=== PATIENT | female | born 1950 | race American Indian/Alaskan Native ===

== ENCOUNTER 2019-07-18 16:59 | Inpatient (IN) | payer OTHER, MEDICARE ==
--- NOTE | 2019-07-18 18:01 | Emergency Department Report ---
HPI - General Chief Complaint: Dyspnea/Respdistress Time Seen by Provider: 07/18/19 17:43 - HPI HPI: Room 19 The patient is a 68-year-old female present with a chief complaint of shortness of breath. Patient states she is had progressive shortness of breath over the past 3 weeks. Patient admits to 4 pillow orthopnea. Patient denies chest pain or fevers. Patient states she began to cough today and has been productive of white sputum. The patient states she is developed bilateral lower extremity edema over the past 3 weeks as well. Patient has a history of CHF and states she is on a "water pill." The patient was administered Lasix 40 mg IV by EMS prior to arrival ED Past Medical Hx - Past Medical History Previous Medical History?: Yes Hx Hypertension: Yes Hx Congestive Heart Failure: Yes Hx COPD: Yes Additional medical history: High cholesterol, former ETOH abuse quit ~2017, atrial fibrillation - Surgical History Additional Surgical History: tubal ligation, left knee - Family History Family history: no significant - Social History Smoking Status: Current Every Day Smoker (1/2 pack/day) Substance Use Type: None - Medications Home Medications: Home Medications Medication Instructions Recorded Confirmed Last Taken Type HYDROcodone/APAP 5-325 [[place] 1 each PO Q6HR PRN #12 tablet 12/17/18 Unknown Rx 5/325] ED Review of Systems ROS: Stated complaint: SHORTNESS OF BREATH Other details as noted in HPI Constitutional: denies: fever Eyes: denies: eye pain ENT: denies: throat pain Respiratory: cough, shortness of breath Cardiovascular: denies: chest pain Endocrine: no symptoms reported Gastrointestinal: denies: abdominal pain Genitourinary: denies: dysuria Skin: other (Peripheral edema) Neurological: denies: headache Physical Exam - Physical Exam Vital Signs: Vital Signs 07/18/19 07/18/19 07/18/19 17:27 17:29 17:30 Temperature 98.3 F Pulse Rate 93 H 89 86 Respiratory 19 23 24 Rate Blood Pressure 169/92 163/95 O2 Sat by Pulse 96 95 Oximetry 07/18/19 07/18/19 07/18/19 17:34 17:35 17:41 Temperature Pulse Rate 78 86 Respiratory 22 22 22 Rate Blood Pressure 163/95 163/95 O2 Sat by Pulse 94 95 96 Oximetry 07/18/19 17:45 Temperature Pulse Rate 87 Respiratory 22 Rate Blood Pressure 161/96 O2 Sat by Pulse 94 Oximetry Physical Exam: GENERAL: The patient is well-developed well-nourished female lying on stretcher exhibiting slightly increased work of breathing. [] HEENT: Normocephalic. Atraumatic. Extraocular motions are intact. Patient has moist mucous membranes. NECK: Supple. Trachea midline CHEST/LUNGS: Faint crackles at the right base. There is no respiratory distress noted. HEART/CARDIOVASCULAR: Regular. There is no tachycardia. There is no gallop rub or murmur. ABDOMEN: Abdomen is soft, nontender. Patient has normal bowel sounds. There is no abdominal distention. SKIN: There is no rash. There is 2-3+ bilateral lower extremity pitting edema. There is no diaphoresis. NEURO: The patient is awake, alert, and oriented. The patient is cooperative. The patient has no focal neurologic deficits. The patient has normal speech MUSCULOSKELETAL: There is no evidence of acute injury. ED Course Vital Signs 07/18/19 07/18/19 07/18/19 17:27 17:29 17:30 Temperature 98.3 F Pulse Rate 93 H 89 86 Respiratory 19 23 24 Rate Blood Pressure 169/92 163/95 O2 Sat by Pulse 96 95 Oximetry 07/18/19 07/18/19 07/18/19 17:34 17:35 17:41 Temperature Pulse Rate 78 86 Respiratory 22 22 22 Rate Blood Pressure 163/95 163/95 O2 Sat by Pulse 94 95 96 Oximetry 07/18/19 17:45 Temperature Pulse Rate 87 Respiratory 22 Rate Blood Pressure 161/96 O2 Sat by Pulse 94 Oximetry ED Medical Decision Making - Lab Data Result diagrams: 07/18/19 17:56 07/18/19 17:56 Laboratory Tests 07/18/19 07/18/19 17:56 17:56 WBC 5.3 RBC 3.75 Hgb 9.4 L Hct 31.0 MCV 83 MCH 25 L MCHC 30 RDW 25.0 H Plt Count 192 Add Manual Diff Complete Total Counted 100 Seg Neuts % (Manual) 87.0 H Band Neutrophils % 0 Lymphocytes % (Manual) 10.0 L Reactive Lymphs % (Man) 0 Monocytes % (Manual) 2.0 Eosinophils % (Manual) 1.0 Basophils % (Manual) 0 Metamyelocytes % 0 Myelocytes % 0 Promyelocytes % 0 Blast Cells % 0 Nucleated RBC % Not Reportable Seg Neutrophils # Man 4.6 Band Neutrophils # 0.0 Lymphocytes # (Manual) 0.5 L Abs React Lymphs (Man) 0.0 Monocytes # (Manual) 0.1 Eosinophils # (Manual) 0.1 Basophils # (Manual) 0.0 Metamyelocytes # 0.0 Myelocytes # 0.0 Promyelocytes # 0.0 Blast Cells # 0.0 WBC Morphology Not Reportable Hypersegmented Neuts Not Reportable Hyposegmented Neuts Not Reportable Hypogranular Neuts Not Reportable Smudge Cells Not Reportable Toxic Granulation Not Reportable Toxic Vacuolation Not Reportable Dohle Bodies Not Reportable Pelger-Huet Anomaly Not Reportable [place] Rods Not Reportable Platelet Estimate Not Reportable Clumped Platelets Not Reportable Plt Clumps, EDTA Not Reportable Large Platelets Not Reportable Giant Platelets Not Reportable Platelet Satelliting Not Reportable Plt Morphology Comment Not Reportable RBC Morphology Not Reportable Dimorphic RBCs Not Reportable Polychromasia Not Reportable Hypochromasia 1+ Poikilocytosis Not Reportable Anisocytosis 1+ Microcytosis 1+ Macrocytosis Not Reportable Spherocytes Not Reportable Pappenheimer Bodies Not Reportable Sickle Cells Not Reportable Target Cells Not Reportable Tear Drop Cells Not Reportable Ovalocytes Not Reportable Helmet Cells Not Reportable Puri-[place] Bodies Not Reportable [place] Rings Not Reportable Eugenia Cells Not Reportable Bite Cells Not Reportable Crenated Cell Not Reportable Elliptocytes Not Reportable Acanthocytes (Spur) Not Reportable Rouleaux Not Reportable Hemoglobin C Crystals Not Reportable Schistocytes Not Reportable Malaria parasites Not Reportable Colby Bodies Not Reportable Hem Pathologist Commnt No Sodium 138 Potassium 4.3 Chloride 96.2 L Carbon Dioxide 30 Anion Gap 16 BUN 16 Creatinine 1.0 Estimated GFR > 60 BUN/Creatinine Ratio 16 Glucose 112 H Calcium 9.7 Total Bilirubin 1.10 AST 17 ALT 12 Alkaline Phosphatase 149 H Total Creatine Kinase 67 CK-MB (CK-2) 2.4 CK-MB (CK-2) Rel Index 3.5 Troponin T < 0.010 NT-Pro-B Natriuret Pep 3321 H Total Protein 7.6 Albumin 3.8 L Albumin/Globulin Ratio 1.0 - EKG Data -: EKG Interpreted by Ct Rate: normal - EKG Data When compared to previous EKG there are: previous EKG unavailable Interpretation: other (Atrial fibrillation) - Radiology Data Radiology results: report reviewed (Chest x-ray), image reviewed (Chest x-ray) interpreted by me: Chest x-ray-right pleural effusion, CHF [facility] [address] [place] [address] XRay Report Signed Patient: PATRICIA SARKAR MR#: [id number] : 1950 Acct:[id number] Age/Sex: 68 / F ADM Date: 07/18/19 Loc: ED Attending Dr: Ordering Physician: ANNAMARIE THACKER MD Date of Service: 07/18/19 Procedure(s): XR chest 1V ap Accession Number(s): [id number] cc: ANNAMARIE THACKER MD Fluoro Time In Minutes: CHEST 1 VIEW INDICATION / CLINICAL INFORMATION: Shortness of breath. COMPARISON: None available. FINDINGS: SUPPORT DEVICES: None. HEART / MEDIASTINUM: Moderately enlarged. LUNGS / PLEURA: Left lung is clear. There is a moderate-sized right pleural effusion and right lower lobe consolidation. There is questionable nodule at the right apex. No pneumothorax. ADDITIONAL FINDINGS: No significant additional findings. IMPRESSION: 1 Right pleural effusion and right basilar lung consolidation. Signer Name: Hamilton Zayas MD Signed: 07/18/2019 6:26 PM Workstation Name: [id number] Transcribed By: Dictated By: Hamilton Zayas MD Electronically Authenticated By: Hamilton Zayas MD Signed Date/Time: 07/18/191825 DD/ 24 TD/TT: - Differential Diagnosis CHF exacerbation, pneumonia, bronchitis, COPD Critical care attestation.: If time is entered above; I have spent that time in minutes in the direct care of this critically ill patient, excluding procedure time. ED Disposition Clinical Impression: CHF exacerbation, Pleural effusion, right Disposition: DC- OP ADMIT IP TO THIS HOSP Is pt being admited?: Yes Does the pt Need Aspirin: Yes Condition: Fair Time of Disposition: 19:37 (Hospitalist paged (Dr Rosenthal))
[2019-07-18 18:19] LABS: Hemoglobin 9.4 gm/dl (10.1-14.3); Mean Corpuscular HGB Conc 30 % (30-34); Mean Corpuscular Volume 83 fl (79-97); Platelet Count 192 K/mm3 (140-440); Red Blood Count 3.75 M/mm3 (3.65-5.03)
--- NOTE | 2019-07-18 18:30 | XRay Report ---
CHEST 1 VIEW INDICATION / CLINICAL INFORMATION: Shortness of breath. COMPARISON: None available. FINDINGS: SUPPORT DEVICES: None. HEART / MEDIASTINUM: Moderately enlarged. LUNGS / PLEURA: Left lung is clear. There is a moderate-sized right pleural effusion and right lower lobe consolidation. There is questionable nodule at the right apex. No pneumothorax. ADDITIONAL FINDINGS: No significant additional findings. IMPRESSION: 1 Right pleural effusion and right basilar lung consolidation. Signer Name: Hamilton Zayas MD Signed: 07/18/2019 6:26 PM Workstation Name: [id number]
[2019-07-18 18:46] LABS: Creatine Kinase MB 2.4 ng/mL (0.0-4.0)
[2019-07-18 18:47] LABS: Alanine Aminotransferase 12 units/L (7-56); Albumin 3.8 g/dL (3.9-5); BUN/Creatinine Ratio 16; Blood Urea Nitrogen 16 mg/dL (7-17); Calcium 9.7 mg/dL (8.4-10.2); Hemolysis Index 0
[2019-07-18 19:01] LABS: Anisocytosis 1+; Basophils % (Manual) 0 % (0.0-1.8); Hypochromasia 1+; Total Cells Counted 100
[2019-07-18] MEDS ORDERED: METOCLOPRAMIDE 10 MG/2 ML INJ IV PRN (22:13)
[2019-07-18] MEDS ORDERED: ACETAMINOPHEN 325 MG TAB PO PRN (22:13)
[2019-07-18] MEDS ORDERED: HYDROmorphone 1 MG/1 ML INJ IV PRN (22:13)
--- NOTE | 2019-07-18 22:13 | History and Physical Report ---
History of Present Illness Date of examination: 07/18/19 Date of admission: 07/18/19 19:50 Chief complaint: Increasing SOB for 3 daysSOB History of present illness: The patient is a 68-year-old female present with a chief complaint of shortness of breath. Patient states she is had progressive shortness of breath over the past 3 weeks. Patient admits to 4 pillow orthopnea. Patient denies chest pain or fevers. Patient states she began to cough today and has been productive of white sputum. The patient states she is developed bilateral lower extremity edema over the past 3 weeks as well. Patient has a history of CHF and states she is on a "water pill." The patient was administered Lasix 40 mg IV by EMS prior to arrival - Past Medical History Previous Medical History?: Yes Hypertension: Yes Congestive Heart Failure: Yes COPD: Yes Additional medical history: High cholesterol, former ETOH abuse quit ~2017, atrial fibrillation - Surgical History Additional Surgical History: tubal ligation, left knee - Family History Family history: no significant - Social History Smoking Status: Current Every Day Smoker (1/2 pack/day) Substance Use Type: None - Medications Home Medications: Home Medications Medication Instructions Recorded Confirmed Last Taken Type HYDROcodone/APAP 5-325 [[place] 1 each PO Q6HR PRN #12 tablet 12/17/18 Unknown Rx 5/325] Review of Systems ROS: Stated complaint: SHORTNESS OF BREATH Other details as noted in HPI Constitutional: denies: fever Eyes: denies: eye pain ENT: denies: throat pain Respiratory: cough, shortness of breath Cardiovascular: denies: chest pain Endocrine: no symptoms reported Gastrointestinal: denies: abdominal pain Genitourinary: denies: dysuria Skin: other (Peripheral edema) Neurological: denies: headache Medications and Allergies Allergies Allergy/AdvReac Type Severity Reaction Status Date / Time No Known Allergies Allergy Verified 07/18/19 23:05 Home Medications Medication Instructions Recorded Confirmed Last Taken Type HYDROcodone/APAP 5-325 [[place] 1 each PO Q6HR PRN #12 tablet 12/17/18 07/19/19 Unknown Rx 5/325] Exam - Physical Exam Narrative exam: patient very SOB at rest - Constitutional Vitals: Temp Pulse Resp BP Pulse Ox 98.3 F 87 24 161/96 94 07/18/19 17:29 07/18/19 21:25 07/18/19 21:41 07/18/19 17:45 07/18/19 17:45 General appearance: Present: severe distress, well-nourished - EENT Eyes: Present: PERRL ENT: hearing intact, clear oral mucosa - Neck Neck: Present: supple, normal ROM - Respiratory Respiratory effort: normal Respiratory: bilateral: CTA, rales - Cardiovascular Heart rate: 98 Rhythm: regular Heart Sounds: Present: S1 & S2. Absent: rub, click - Extremities Extremities: no ischemia, pulses intact, pulses symmetrical, No edema Extremity abnormal: edema (2 plus) Peripheral Pulses: within normal limits - Abdominal General gastrointestinal: Present: soft, non-tender, non-distended, normal bowel sounds Female genitourinary: Present: normal - Rectal Rectal Exam: deferred - Integumentary Integumentary: Present: clear, warm, dry - Musculoskeletal Musculoskeletal: gait normal, strength equal bilaterally - Psychiatric Psychiatric: appropriate mood/affect, intact judgment & insight - Neurologic Neurologic: CNII-XII intact, moves all extremities - Allied Health Allied health notes reviewed: nursing, case management HEART Score - HEART Score History: Highly suspicious EKG: Non-specific Age: > 65 Risk factors: > 3 risk factors or hx of atherosclerotic disease Troponin: Troponin T < 0.010 ng/mL (0.00-0.029) 07/18/19 17:56 - Critical Actions Critical Actions: 4-6 pts:12-16.6% risk of adverse cardiac event. Should be admitted Results - Labs CBC & Chem 7: 07/19/19 03:31 07/19/19 03:31 Labs: Laboratory Last Values WBC 5.3 K/mm3 (4.5-11.0) 07/18/19 17:56 RBC 3.75 M/mm3 (3.65-5.03) 07/18/19 17:56 Hgb 9.4 gm/dl (10.1-14.3) L 07/18/19 17:56 Hct 31.0 % (30.3-42.9) 07/18/19 17:56 MCV 83 fl (79-97) 07/18/19 17:56 MCH 25 pg (28-32) L 07/18/19 17:56 MCHC 30 % (30-34) 07/18/19 17:56 RDW 25.0 % (13.2-15.2) H 07/18/19 17:56 Plt Count 192 K/mm3 (140-440) 07/18/19 17:56 Add Manual Diff Complete 07/18/19 17:56 Total Counted 100 07/18/19 17:56 Seg Neuts % (Manual) 87.0 % (40.0-70.0) H 07/18/19 17:56 Band Neutrophils % 0 % 07/18/19 17:56 Lymphocytes % (Manual) 10.0 % (13.4-35.0) L 07/18/19 17:56 Reactive Lymphs % (Man) 0 % 07/18/19 17:56 Monocytes % (Manual) 2.0 % (0.0-7.3) 07/18/19 17:56 Eosinophils % (Manual) 1.0 % (0.0-4.3) 07/18/19 17:56 Basophils % (Manual) 0 % (0.0-1.8) 07/18/19 17:56 Metamyelocytes % 0 % 07/18/19 17:56 Myelocytes % 0 % 07/18/19 17:56 Promyelocytes % 0 % 07/18/19 17:56 Blast Cells % 0 % 07/18/19 17:56 Nucleated RBC % Not Reportable 07/18/19 17:56 Seg Neutrophils # Man 4.6 K/mm3 (1.8-7.7) 07/18/19 17:56 Band Neutrophils # 0.0 K/mm3 07/18/19 17:56 Lymphocytes # (Manual) 0.5 K/mm3 (1.2-5.4) L 07/18/19 17:56 Abs React Lymphs (Man) 0.0 K/mm3 07/18/19 17:56 Monocytes # (Manual) 0.1 K/mm3 (0.0-0.8) 07/18/19 17:56 Eosinophils # (Manual) 0.1 K/mm3 (0.0-0.4) 07/18/19 17:56 Basophils # (Manual) 0.0 K/mm3 (0.0-0.1) 07/18/19 17:56 Metamyelocytes # 0.0 K/mm3 07/18/19 17:56 Myelocytes # 0.0 K/mm3 07/18/19 17:56 Promyelocytes # 0.0 K/mm3 07/18/19 17:56 Blast Cells # 0.0 K/mm3 07/18/19 17:56 WBC Morphology Not Reportable 07/18/19 17:56 Hypersegmented Neuts Not Reportable 07/18/19 17:56 Hyposegmented Neuts Not Reportable 07/18/19 17:56 Hypogranular Neuts Not Reportable 07/18/19 17:56 Smudge Cells Not Reportable 07/18/19 17:56 Toxic Granulation Not Reportable 07/18/19 17:56 Toxic Vacuolation Not Reportable 07/18/19 17:56 Dohle Bodies Not Reportable 07/18/19 17:56 Pelger-Huet Anomaly Not Reportable 07/18/19 17:56 Camilo Rods Not Reportable 07/18/19 17:56 Platelet Estimate Not Reportable 07/18/19 17:56 Clumped Platelets Not Reportable 07/18/19 17:56 Plt Clumps, EDTA Not Reportable 07/18/19 17:56 Large Platelets Not Reportable 07/18/19 17:56 Giant Platelets Not Reportable 07/18/19 17:56 Platelet Satelliting Not Reportable 07/18/19 17:56 Plt Morphology Comment Not Reportable 07/18/19 17:56 RBC Morphology Not Reportable 07/18/19 17:56 Dimorphic RBCs Not Reportable 07/18/19 17:56 Polychromasia Not Reportable 07/18/19 17:56 Hypochromasia 1+ 07/18/19 17:56 Poikilocytosis Not Reportable 07/18/19 17:56 Anisocytosis 1+ 07/18/19 17:56 Microcytosis 1+ 07/18/19 17:56 Macrocytosis Not Reportable 07/18/19 17:56 Spherocytes Not Reportable 07/18/19 17:56 Pappenheimer Bodies Not Reportable 07/18/19 17:56 Sickle Cells Not Reportable 07/18/19 17:56 Target Cells Not Reportable 07/18/19 17:56 Tear Drop Cells Not Reportable 07/18/19 17:56 Ovalocytes Not Reportable 07/18/19 17:56 Helmet Cells Not Reportable 07/18/19 17:56 Puri-[place] Bodies Not Reportable 07/18/19 17:56 [place] Rings Not Reportable 07/18/19 17:56 Eugenia Cells Not Reportable 07/18/19 17:56 Bite Cells Not Reportable 07/18/19 17:56 Crenated Cell Not Reportable 07/18/19 17:56 Elliptocytes Not Reportable 07/18/19 17:56 Acanthocytes (Spur) Not Reportable 07/18/19 17:56 Rouleaux Not Reportable 07/18/19 17:56 Hemoglobin C Crystals Not Reportable 07/18/19 17:56 Schistocytes Not Reportable 07/18/19 17:56 Malaria parasites Not Reportable 07/18/19 17:56 Colby Bodies Not Reportable 07/18/19 17:56 Hem Pathologist Commnt No 07/18/19 17:56 Sodium 138 mmol/L (137-145) 07/18/19 17:56 Potassium 4.3 mmol/L (3.6-5.0) 07/18/19 17:56 Chloride 96.2 mmol/L (98-107) L 07/18/19 17:56 Carbon Dioxide 30 mmol/L (22-30) 07/18/19 17:56 Anion Gap 16 mmol/L 07/18/19 17:56 BUN 16 mg/dL (7-17) 07/18/19 17:56 Creatinine 1.0 mg/dL (0.7-1.2) 07/18/19 17:56 Estimated GFR > 60 ml/min 07/18/19 17:56 BUN/Creatinine Ratio 16 % 07/18/19 17:56 Glucose 112 mg/dL (65-100) H 07/18/19 17:56 Calcium 9.7 mg/dL (8.4-10.2) 07/18/19 17:56 Total Bilirubin 1.10 mg/dL (0.1-1.2) 07/18/19 17:56 AST 17 units/L (5-40) 07/18/19 17:56 ALT 12 units/L (7-56) 07/18/19 17:56 Alkaline Phosphatase 149 units/L (35-129) H 07/18/19 17:56 Total Creatine Kinase 67 units/L (30-135) 07/18/19 17:56 CK-MB (CK-2) 2.4 ng/mL (0.0-4.0) 07/18/19 17:56 CK-MB (CK-2) Rel Index 3.5 (0-4) 07/18/19 17:56 Troponin T < 0.010 ng/mL (0.00-0.029) 07/18/19 17:56 NT-Pro-B Natriuret Pep 3321 pg/mL (0-900) H 07/18/19 17:56 Total Protein 7.6 g/dL (6.3-8.2) 07/18/19 17:56 Albumin 3.8 g/dL (3.9-5) L 07/18/19 17:56 Albumin/Globulin Ratio 1.0 % 07/18/19 17:56 Short CBC 07/18/19 Range/Units 17:56 WBC 5.3 (4.5-11.0) K/mm3 Hgb 9.4 L (10.1-14.3) gm/dl Hct 31.0 (30.3-42.9) % Plt Count 192 (140-440) K/mm3 BMP 07/18/19 17:56 Sodium 138 Potassium 4.3 Chloride 96.2 L Carbon Dioxide 30 BUN 16 Creatinine 1.0 Glucose 112 H Calcium 9.7 Cardiac Enzymes 07/18/19 Range/Units 17:56 Total Creatine Kinase 67 (30-135) units/L CK-MB (CK-2) 2.4 (0.0-4.0) ng/mL Troponin T < 0.010 (0.00-0.029) ng/mL Liver Function 07/18/19 Range/Units 17:56 Total Bilirubin 1.10 (0.1-1.2) mg/dL AST 17 (5-40) units/L ALT 12 (7-56) units/L Alkaline Phosphatase 149 H (35-129) units/L Albumin 3.8 L (3.9-5) g/dL Short CBC 07/18/19 07/19/19 Range/Units 17:56 03:31 WBC 5.3 2.9 L (4.5-11.0) K/mm3 Hgb 9.4 L 8.8 L (10.1-14.3) gm/dl Hct 31.0 28.8 L (30.3-42.9) % Plt Count 192 171 (140-440) K/mm3 BMP 07/18/19 07/19/19 17:56 03:31 Sodium 138 139 Potassium 4.3 5.3 H D Chloride 96.2 L 96.3 L Carbon Dioxide 30 30 BUN 16 17 Creatinine 1.0 1.1 Glucose 112 H 128 H Calcium 9.7 9.7 Cardiac Enzymes 07/18/19 Range/Units 17:56 Total Creatine Kinase 67 (30-135) units/L CK-MB (CK-2) 2.4 (0.0-4.0) ng/mL Troponin T < 0.010 (0.00-0.029) ng/mL Liver Function 07/18/19 07/19/19 Range/Units 17:56 03:31 Total Bilirubin 1.10 1.00 (0.1-1.2) mg/dL AST 17 17 (5-40) units/L ALT 12 11 (7-56) units/L Alkaline Phosphatase 149 H 148 H (35-129) units/L Albumin 3.8 L 3.9 (3.9-5) g/dL - Imaging and Cardiology EKG: report reviewed Chest x-ray: report reviewed (Rt pleural effusion with consolidation) [place]/IV: Voiding Method Indwelling Catheter IV Catheter Type [Left INT / [place] Antecubital] Assessment and Plan Advance Directives: Yes (Full code) VTE prophylaxis?: Chemical Plan of care discussed with patient/family: Yes - Patient Problems (1) CHF exacerbation Current Visit: Yes Status: Acute Qualifiers: Heart failure type: combined systolic and diastolic Qualified Code(s): I50.43 - Acute on chronic combined systolic (congestive) and diastolic (congestive) heart failure Plan to address problem: Daily weigts Strict I/o's ECHO for EF IV Lasix q12h Cardiology consult (2) Pleural effusion, right Current Visit: Yes Status: Acute Plan to address problem: Sec to CHF No Pneumonia No IV abx (3) HTN (hypertension) Current Visit: Yes Status: Chronic Qualifiers: Hypertension type: essential hypertension Qualified Code(s): I10 - Essential (primary) hypertension Plan to address problem: COnt anihypertensives and adjust BP meds (4) COPD (chronic obstructive pulmonary disease) Current Visit: Yes Status: Chronic Qualifiers: Emphysema type: unspecified Plan to address problem: Duonebs prn (5) HLD (hyperlipidemia) Current Visit: Yes Status: Chronic Qualifiers: Hyperlipidemia type: mixed hyperlipidemia Qualified Code(s): E78.2 - Mixed hyperlipidemia Plan to address problem: Cont statins (6) DVT prophylaxis Current Visit: Yes Status: Acute Plan to address problem: On Heparin and GI prophylaxis
[2019-07-18] MEDS ORDERED: carvediloL 6.25 MG TAB PO SCH (23:00)
[2019-07-18] MEDS ORDERED: POTASSIUM CHLORIDE ER 20 MEQ TAB PO SCH (23:00)
[2019-07-18] MEDS: FAMOTIDINE 20 MG TAB PO SCH (23:14)
[2019-07-18] MEDS: VALSARTAN 160MG TAB PO SCH (23:14)
[2019-07-19 04:26] LABS: Hematocrit 28.8 % (30.3-42.9); Hemoglobin 8.8 gm/dl (10.1-14.3); Mean Corpuscular HGB Conc 31 % (30-34); Mean Corpuscular Volume 83 fl (79-97); Platelet Count 171 K/mm3 (140-440); Red Blood Count 3.49 M/mm3 (3.65-5.03)
[2019-07-19 04:29] LABS: Red Cell Distribution Width 24.5 % (13.2-15.2)
[2019-07-19 04:45] LABS: Albumin 3.9 g/dL (3.9-5); Calcium 9.7 mg/dL (8.4-10.2)
[2019-07-19] MEDS: FUROSEMIDE 40 MG/4 ML INJ IV SCH ×2 (05:06→18:43)
[2019-07-19 06:40] LABS: Basophils % (Manual) 0 % (0.0-1.8); Eosinophils % (Manual) 0 % (0.0-4.3); Total Cells Counted 100
[2019-07-19 06:41] LABS: Anisocytosis 2+; Hypochromasia 1+; Macrocytosis Few; Ovalocytes Few; Platelet Estimate Consistent w Auto; Schistocytes Rare
[2019-07-19] MEDS ORDERED: HEPARIN 5,000 UNIT/1 ML VIAL SUB-Q SCH (10:00)
--- NOTE | 2019-07-19 11:02 | Consultation ---
History of Present Illness Consult date: 07/19/19 Requesting physician: WARREN STRICKLAND Consult reason: congestive heart failure History of present illness: The patient is a 68-year-old female [place] pt with a past medical history of atrial fibrillation, anticoagulated on Xarelto, HF, COPD, chronic respiratory failure requiring home O2 (3L per pt report), ongoing tobacco use, HTN. She presented with c/o left breast swelling and progressively worsening SOB and BLE edema for the past several weeks. Patient admits to 4 pillow orthopnea. Patient denies any chest pain, cough, fever or chills, palpitations, n/v, diaphoresis, dizziness or syncope. CXR per radiology read shows right pleural effusion with questionable nodule at right apex. On evaluation, pt is c/o SOB and requiring hi-tapan NC. Past History Past Medical History: other (as per HPI) Social history: smoking Medications and Allergies Allergies Allergy/AdvReac Type Severity Reaction Status Date / Time No Known Allergies Allergy Verified 07/18/19 23:05 Home Medications Medication Instructions Recorded Confirmed Last Taken Type HYDROcodone/APAP 5-325 [Energy 1 each PO Q6HR PRN #12 tablet 12/17/18 07/19/19 Unknown Rx 5/325] Active Meds: Active Medications Acetaminophen (Tylenol) 650 mg PO Q4H PRN PRN Reason: Pain MILD(1-3)/Fever >100.5/KENDALL Carvedilol (Coreg) 6.25 mg PO BID [facility] Last Admin: 07/18/19 23:14 Dose: 6.25 mg Documented by: Famotidine (Pepcid) 20 mg PO BID [facility] Last Admin: 07/18/19 23:14 Dose: 20 mg Documented by: Furosemide (Lasix) 40 mg IV 0600,1800 [facility] Last Admin: 07/19/19 05:06 Dose: 40 mg Documented by: Heparin Sodium (Porcine) (Heparin) 5,000 unit SUB-Q Q12HR [facility] Hydromorphone HCl (Dilaudid) 0.5 mg IV Q3H PRN PRN Reason: Pain , Severe (7-10) Metoclopramide HCl (Reglan) 10 mg IV Q6H PRN PRN Reason: Nausea And Vomiting Ondansetron HCl (Zofran) 4 mg IV Q8H PRN PRN Reason: Nausea And Vomiting Oxycodone/Acetaminophen (Percocet 5/325) 1 tab PO Q6H PRN PRN Reason: Pain, Moderate (4-6) Sodium Chloride (Sodium Chloride Flush Syringe 10 Ml) 10 ml IV BID [facility] Last Admin: 07/18/19 23:15 Dose: 10 ml Documented by: Sodium Chloride (Sodium Chloride Flush Syringe 10 Ml) 10 ml IV PRN PRN PRN Reason: LINE FLUSH Valsartan (Diovan) 160 mg PO BID [facility] Last Admin: 07/18/19 23:14 Dose: 160 mg Documented by: Review of Systems Constitutional: no fever, no chills, no sweats Ears, nose, mouth and throat: no ear pain, no nose pain, no sinus pressure, no sinus pain Cardiovascular: orthopnea, edema, shortness of breath, dyspnea on exertion, high blood pressure, leg edema, no chest pain, no palpitations, no rapid/irregular heart beat, no syncope, no lightheadedness Respiratory: shortness of breath, dyspnea on exertion, no cough, no congestion, no wheezing, no pain on inspiration Gastrointestinal: no abdominal pain, no nausea, no vomiting, no diarrhea, no constipation, no change in bowel habits Genitourinary Female: no pelvic pain, no flank pain, no dysuria, no urinary frequency, no urgency Musculoskeletal: no neck stiffness, no neck pain, no shooting arm pain, no arm numbness/tingling, no low back pain, no shooting leg pain Integumentary: no rash, no pruritis, no redness, no sores, no wounds Neurological: no head injury, no paralysis, no weakness, no parathesias, no numbness, no tingling, no seizures, no syncope Psychiatric: no anxiety Endocrine: no cold intolerance, no heat intolerance Hematologic/Lymphatic: no easy bruising, no easy bleeding Allergic/Immunologic: no urticaria Physical Examination Vital Signs Pulse Resp 93 H 19 07/18/19 17:27 07/18/19 17:27 General appearance: other (SOB) HEENT: Positive: PERRL Neck: Positive: neck supple, trachea midline Cardiac: Positive: irregularly irregular, S1/S2 Lungs: Positive: Decreased Breath Sounds, Oxygen Neuro: Positive: Grossly Intact Abdomen: Negative: Tender Skin: Negative: Rash Musculoskeletal: No Pain Extremities: Present: +1 Edema (BLE) Results 07/19/19 03:31 07/19/19 03:31 Cardiac Enzymes 07/18/19 07/19/19 Range/Units 17:56 03:31 AST 17 17 (5-40) units/L CK-MB (CK-2) 2.4 (0.0-4.0) ng/mL CBC 07/18/19 07/19/19 Range/Units 17:56 03:31 WBC 5.3 2.9 L (4.5-11.0) K/mm3 RBC 3.75 3.49 L (3.65-5.03) M/mm3 Hgb 9.4 L 8.8 L (10.1-14.3) gm/dl Hct 31.0 28.8 L (30.3-42.9) % Plt Count 192 171 (140-440) K/mm3 Comprehensive Metabolic Panel 07/18/19 07/19/19 Range/Units 17:56 03:31 Sodium 138 139 (137-145) mmol/L Potassium 4.3 5.3 H D (3.6-5.0) mmol/L Chloride 96.2 L 96.3 L (98-107) mmol/L Carbon Dioxide 30 30 (22-30) mmol/L BUN 16 17 (7-17) mg/dL Creatinine 1.0 1.1 (0.7-1.2) mg/dL Glucose 112 H 128 H (65-100) mg/dL Calcium 9.7 9.7 (8.4-10.2) mg/dL AST 17 17 (5-40) units/L ALT 12 11 (7-56) units/L Alkaline Phosphatase 149 H 148 H (35-129) units/L Total Protein 7.6 7.6 (6.3-8.2) g/dL Albumin 3.8 L 3.9 (3.9-5) g/dL - Imaging and Cardiology Echo: pending EKG: report reviewed, image reviewed EKG interpretations - Telemetry EKG Rhythm: Atrial Fibrillation - EKG Supraventricular dysrhythmia: atrial fibrillation Assessment and Plan Agree with IV lasix BID. Convert coreg to lopressor (beta selective). Cont ARB. Obtain chest CTA. Recommend pulmonary consultation in setting of A/C respiratory failure, COPD, pleural effusion which may ultimately require thoracentesis, questionable pulmonary nodule, ongoing tobacco use. Hold home Xarelto pending pulmonary eval and initiate full dosage lovenox BID in regards to AFib. Pt noted to have decrease in H/H today. F/u CBC in AM. Obtain echo. Attempt to obtain medical records from [place]. Further recs to follow per hospital course. The patient has been seen in conjunction with Dr. Elio Sotelo who agrees with the assessment and plan of care. - Patient Problems (1) Acute heart failure Current Visit: Yes Status: Acute (2) Pleural effusion, right Current Visit: Yes Status: Acute (3) COPD (chronic obstructive pulmonary disease) Current Visit: Yes Status: Chronic Qualifiers: Emphysema type: unspecified (4) Acute on chronic respiratory failure Current Visit: Yes Status: Acute (5) Accelerated hypertension Current Visit: Yes Status: Acute (6) Atrial fibrillation Current Visit: Yes Status: Chronic (7) Anemia Current Visit: Yes Status: Acute (8) Tobacco use Current Visit: Yes Status: Chronic
[2019-07-19] MEDS: FAMOTIDINE 20 MG TAB PO SCH ×2 (15:07→21:59)
[2019-07-19] MEDS: VALSARTAN 160MG TAB PO SCH ×2 (15:07→21:57)
--- NOTE | 2019-07-19 17:54 | Progress Note ---
Assessment and Plan Day#2 SOB slihtly better - Patient Problems (1) CHF exacerbation Current Visit: Yes Status: Acute Qualifiers: Heart failure type: combined systolic and diastolic Qualified Code(s): I50.43 - Acute on chronic combined systolic (congestive) and diastolic (congestive) heart failure Plan to address problem: Daily weigts Strict I/o's ECHO for EF IV Lasix q12h Cardiology consult (2) Pleural effusion, right Current Visit: Yes Status: Acute Plan to address problem: Sec to CHF No Pneumonia No IV abx Pulmonary consult (3) HTN (hypertension) Current Visit: Yes Status: Chronic Qualifiers: Hypertension type: essential hypertension Qualified Code(s): I10 - Essential (primary) hypertension Plan to address problem: COnt anihypertensives and adjust BP meds (4) COPD (chronic obstructive pulmonary disease) Current Visit: Yes Status: Chronic Qualifiers: Emphysema type: unspecified Plan to address problem: Duonebs prn (5) HLD (hyperlipidemia) Current Visit: Yes Status: Chronic Qualifiers: Hyperlipidemia type: mixed hyperlipidemia Qualified Code(s): E78.2 - Mixed hyperlipidemia Plan to address problem: Cont statins (6) DVT prophylaxis Current Visit: Yes Status: Acute Plan to address problem: On Heparin and GI prophylaxis Subjective Date of service: 07/19/19 Principal diagnosis: Chf exacerbation Interval history: The patient is a 68-year-old female present with a chief complaint of shortness of breath. Patient states she is had progressive shortness of breath over the past 3 weeks. Patient admits to 4 pillow orthopnea. Patient denies chest pain or fevers. Patient states she began to cough today and has been productive of w florina sputum. The patient states she is developed bilateral lower extremity edema over the past 3 weeks as well. Patient has a history of CHF and states she is on a "water pill." The patient was administered Lasix 40 mg IV by EMS prior to arrival. Day#2 Some improvement Objective - Exam Narrative Exam: patient very SOB at rest - Constitutional Vitals: Vital Signs - 12hr 07/19/19 07/19/19 07/19/19 07:34 08:00 09:00 Temperature 97.8 F Respiratory 18 24 Rate Blood Pressure 151/85 O2 Sat by Pulse 100 Oximetry General appearance: Present: no acute distress, well-nourished - EENT Eyes: PERRL, EOM intact ENT: hearing intact, clear oral mucosa Ears: bilateral: normal - Neck Neck: supple, normal ROM - Respiratory Respiratory effort: normal Respiratory: bilateral: CTA, rales, negative: other (TACHYPNEIC) - Breasts Breasts: normal - Cardiovascular Rhythm: regular Heart Sounds: Present: S1 & S2. Absent: gallop, rub Extremities: pulses intact, No edema, normal color, Full ROM - Gastrointestinal General gastrointestinal: Present: soft, non-tender, non-distended, normal bowel sounds - Genitourinary Female genitourinary: normal - Integumentary Integumentary: clear, warm, dry - Musculoskeletal Musculoskeletal: 1, strength equal bilaterally - Neurologic Neurologic: moves all extremities - Psychiatric Psychiatric: memory intact, appropriate mood/affect, intact judgment & insight - Allied health notes Allied health notes reviewed: nursing, case management - Labs CBC & Chem 7: 07/20/19 03:32 07/20/19 03:32 Labs: Abnormal lab results 07/18/19 07/18/19 07/19/19 Range/Units 17:56 17:56 03:31 WBC 2.9 L (4.5-11.0) K/mm3 RBC 3.49 L (3.65-5.03) M/mm3 Hgb 9.4 L 8.8 L (10.1-14.3) gm/dl Hct 28.8 L (30.3-42.9) % MCH 25 L 25 L (28-32) pg RDW 25.0 H 24.5 H (13.2-15.2) % Seg Neuts % (Manual) 87.0 H 83.0 H (40.0-70.0) % Lymphocytes % (Manual) 10.0 L (13.4-35.0) % Lymphocytes # (Manual) 0.5 L 0.5 L (1.2-5.4) K/mm3 Potassium (3.6-5.0) mmol/L Chloride 96.2 L (98-107) mmol/L Glucose 112 H (65-100) mg/dL Alkaline Phosphatase 149 H (35-129) units/L NT-Pro-B Natriuret Pep 3321 H (0-900) pg/mL Albumin 3.8 L (3.9-5) g/dL 07/19/19 Range/Units 03:31 WBC (4.5-11.0) K/mm3 RBC (3.65-5.03) M/mm3 Hgb (10.1-14.3) gm/dl Hct (30.3-42.9) % MCH (28-32) pg RDW (13.2-15.2) % Seg Neuts % (Manual) (40.0-70.0) % Lymphocytes % (Manual) (13.4-35.0) % Lymphocytes # (Manual) (1.2-5.4) K/mm3 Potassium 5.3 H D (3.6-5.0) mmol/L Chloride 96.3 L (98-107) mmol/L Glucose 128 H (65-100) mg/dL Alkaline Phosphatase 148 H (35-129) units/L NT-Pro-B Natriuret Pep (0-900) pg/mL Albumin (3.9-5) g/dL HEART Score - HEART Score EKG: Non-specific Age: > 65 Risk factors: > 3 risk factors or hx of atherosclerotic disease Troponin: Troponin T < 0.010 ng/mL (0.00-0.029) 07/18/19 17:56 - Critical Actions Critical Actions: 4-6 pts:12-16.6% risk of adverse cardiac event. Should be admitted
--- NOTE | 2019-07-19 18:18 | Cat Scan Report ---
CT CHEST WITH CONTRAST INDICATION / CLINICAL INFORMATION: MAIN: SOB; right sided effusion; pulmonary nodule. Omnipaque 300, 100ml give for exam.. TECHNIQUE: Axial CT images were obtained through the chest after 100 cc Omnipaque 300 milligrams percent IV cont rast. All CT scans at this location are performed using CT dose reduction for ALARA by means of autom ated exposure control. COMPARISON: None available. FINDINGS: HEART: Cardiac enlargement is present. Mild coronary calcifications present THORACIC AORTA: Atherosclerotic calcified plaque thoracic aorta MEDIASTINUM and VALE: There is a large pretracheal retrocaval lymph node measuring 1.5 cm in short ax is (Station 4R) enlargement LUNGS: There is a 2.2 cm round mass adjacent to the medial pleura right upper lobe worrisome for a karlene ng carcinoma. Airspace changes right lower lobe is noted. PLEURA: Moderate size right pleural effusion. No pneumothorax. ADDITIONAL FINDINGS: None. UPPER ABDOMEN: No significant abnormality. SKELETAL SYSTEM: No significant abnormality. IMPRESSION: 1. Right upper lobe mass abutting the medial aspect of the pleura, configuration is more in keeping w ith a pulmonary lesion rather than right paratracheal adenopathy does worrisome for lung carcinoma 2. Mediastinal lymphadenopathy 3. Airspace changes right lower lobe with moderate size right pleural effusion 4. Cardiac enlargement Signer Name: Bjorn Garcia MD Signed: 07/19/2019 6:14 PM Workstation Name: [id number]
[2019-07-19] MEDS: ENOXAPARIN 100 MG/1 ML INJ SUB-Q SCH (21:57)
[2019-07-19] MEDS: METOPROLOL TARTRATE 50 MG TAB PO SCH (21:59)
[2019-07-19] MEDS: ONDANSETRON 4 MG/2 ML INJ IV PRN (22:06)
[2019-07-20 04:18] LABS: Hematocrit 29.5 % (30.3-42.9); Hemoglobin 8.9 gm/dl (10.1-14.3); Mean Corpuscular HGB Conc 30 % (30-34); Mean Corpuscular Volume 83 fl (79-97); Platelet Count 168 K/mm3 (140-440); Red Blood Count 3.54 M/mm3 (3.65-5.03)
[2019-07-20 04:21] LABS: Red Cell Distribution Width 23.6 % (13.2-15.2)
[2019-07-20 04:52] LABS: Calcium 8.9 mg/dL (8.4-10.2)
[2019-07-20] MEDS: FUROSEMIDE 40 MG/4 ML INJ IV SCH ×2 (06:16→20:31)
--- NOTE | 2019-07-20 08:11 | Progress Note ---
Assessment and Plan Day#2 SOB slightly better Day#[address] chest shows RUL mass Pulmonary consult - Patient Problems (1) CHF exacerbation Current Visit: Yes Status: Acute Qualifiers: Heart failure type: combined systolic and diastolic Qualified Code(s): I50.43 - Acute on chronic combined systolic (congestive) and diastolic (congestive) heart failure Plan to address problem: Daily weigts Strict I/o's ECHO for EF IV Lasix q12h Cardiology consult (2) Pleural effusion, right Current Visit: Yes Status: Acute Plan to address problem: Sec to CHF Some airspace disease Empiric IV Levaquin RUL mass Pulmonary consult (3) HTN (hypertension) Current Visit: Yes Status: Chronic Qualifiers: Hypertension type: essential hypertension Qualified Code(s): I10 - Essential (primary) hypertension Plan to address problem: COnt anihypertensives and adjust BP meds (4) COPD (chronic obstructive pulmonary disease) Current Visit: Yes Status: Chronic Qualifiers: Emphysema type: unspecified Plan to address problem: Duonebs prn (5) HLD (hyperlipidemia) Current Visit: Yes Status: Chronic Qualifiers: Hyperlipidemia type: mixed hyperlipidemia Qualified Code(s): E78.2 - Mixed hyperlipidemia Plan to address problem: Cont statins (6) DVT prophylaxis Current Visit: Yes Status: Acute Plan to address problem: On Heparin and GI prophylaxis (7) Discharge planning issues Current Visit: Yes Status: Acute Plan to address problem: Patient has a RUL mass PNA ans CHF exacerbation which needs workup Subjective Date of service: 07/20/19 Principal diagnosis: Chf exacerbation,RUL mass,PNA Interval history: The patient is a 68-year-old female present with a chief complaint of shortness of breath. Patient states she is had progressive shortness of breath over the past 3 weeks. Patient admits to 4 pillow orthopnea. Patient denies chest pain or fevers. Patient states she began to cough today and has been productive of white sputum. The patient states she is developed bilateral lower extremity edema over the past 3 weeks as well. Patient has a history of CHF and states she is on a "water pill." The patient was administered Lasix 40 mg IV by EMS prior to arrival. Day#2 Some improvement Day#3 Still SOB Objective - Exam Narrative Exam: patient very SOB at rest - Constitutional Vitals: Vital Signs - 12hr 07/19/19 07/19/1907/18/20 21:00 21:57 21:59 Temperature Pulse Rate 84 84 84 Pulse Rate [ 84 Left Radial] Pulse Rate [ 84 Right Radial] Respiratory 22 Rate Blood Pressure 137/82 137/82 O2 Sat by Pulse 100 Oximetry 07/19/19 07/20/19 07/20/19 22:35 02:00 03:55 Temperature 98.0 F 98.2 F Pulse Rate 94 H 75 Pulse Rate [ Left Radial] Pulse Rate [ Right Radial] Respiratory 19 19 Rate Blood Pressure 116/76 102/55 O2 Sat by Pulse 97 99 99 Oximetry 07/20/19 07/20/19 05:00 07:52 Temperature 98.4 F Pulse Rate 75 Pulse Rate [ Left Radial] Pulse Rate [ Right Radial] Respiratory 18 Rate Blood Pressure 98/68 O2 Sat by Pulse Oximetry General appearance: Present: mild distress, well-nourished - EENT Eyes: PERRL, EOM intact ENT: hearing intact, clear oral mucosa Ears: bilateral: normal - Neck Neck: supple, normal ROM - Respiratory Respiratory effort: normal Respiratory: bilateral: CTA, rales, rhonchi - Breasts Breasts: normal - Cardiovascular Heart rate: 78 Rhythm: regular Heart Sounds: Present: S1 & S2. Absent: gallop, rub Extremities: no ischemia, pulses intact, No edema, normal color, Full ROM - Gastrointestinal General gastrointestinal: Present: soft, non-tender, non-distended, normal bowel sounds - Genitourinary Female genitourinary: normal - Integumentary Integumentary: clear, warm, dry - Musculoskeletal Musculoskeletal: 1, strength equal bilaterally - Neurologic Neurologic: moves all extremities - Psychiatric Psychiatric: memory intact, appropriate mood/affect, intact judgment & insight - Allied health notes Allied health notes reviewed: nursing, case management - Labs CBC & Chem 7: 07/20/19 03:32 07/20/19 03:32 Labs: Abnormal lab results 07/20/19 07/20/19 Range/Units 03:32 03:32 RBC 3.54 L (3.65-5.03) M/mm3 Hgb 8.9 L (10.1-14.3) gm/dl Hct 29.5 L (30.3-42.9) % MCH 25 L (28-32) pg RDW 23.6 H (13.2-15.2) % Chloride 96.0 L (98-107) mmol/L Carbon Dioxide 31 H (22-30) mmol/L BUN 24 H (7-17) mg/dL Creatinine 1.5 H (0.7-1.2) mg/dL Glucose 110 H (65-100) mg/dL CT chest IMPRESSION: 1. Right upper lobe mass abutting the medial aspect of the pleura, configuration is more in keeping with a pulmonary lesion rather than right paratracheal adenopathy does worrisome for lung carcinoma 2. Mediastinal lymphadenopathy 3. Airspace changes right lower lobe with moderate size right pl eural effusion 4. Cardiac enlargement - Imaging and cardiology EKG: report reviewed Chest x-ray: report reviewed CT scan - chest: report reviewed HEART Score - HEART Score EKG: Non-specific Age: > 65 Risk factors: > 3 risk factors or hx of atherosclerotic disease Troponin: Troponin T < 0.010 ng/mL (0.00-0.029) 07/18/19 17:56 - Critical Actions Critical Actions: 4-6 pts:12-16.6% risk of adverse cardiac event. Should be admitted
--- NOTE | 2019-07-20 10:24 | Progress Note ---
Assessment and Plan tte reviewed - EF 50-55%, mild LVH, abnormal diastolic function, LA severely dilated, mild AR, RV severely dilated, severe pulm HTN with RVSP 72mmHg. Chest CT reviewed - RUL mass worrisome for lung carcinoma per radiology, RLL mod sized pleural effusion. Pt denies any known prior diagnosis of lung mass or pulmonary HTN. Pulmonary consultation pending. Cont present cardiac management, including IV lasix BID, lopressor, ARB. Cont full dosage lovenox BID and hold home Xarelto in regards to AFib pending pulmonary eval. Further recs to follow per hospital course. The patient has been seen in conjunction with Dr. Elio Sotelo who agrees with the assessment and plan of care. - Patient Problems (1) Acute heart failure with preserved ejection fraction Current Visit: Yes Status: Acute (2) Lung mass Current Visit: Yes Status: Chronic (3) Severe pulmonary arterial systolic hypertension Current Visit: Yes Status: Chronic (4) Pleural effusion, right Current Visit: Yes Status: Acute (5) COPD (chronic obstructive pulmonary disease) Current Visit: Yes Status: Chronic Qualifiers: Emphysema type: unspecified (6) Acute on chronic respiratory failure Current Visit: Yes Status: Acute (7) Accelerated hypertension Current Visit: Yes Status: Acute (8) Atrial fibrillation Current Visit: Yes Status: Chronic (9) Anemia Current Visit: Yes Status: Acute (10) Tobacco use Current Visit: Yes Status: Chronic Subjective Date of service: 07/20/19 Principal diagnosis: Chf exacerbation,RUL mass,PNA Interval history: Pt resting in bed, states SOB is minimally improved, on O2 via hi-tapan [place]. tele reviewed - in AFib with HR 80s - 80s. Objective Last Vital Signs Temp 98.4 F 07/20/19 07:52 Pulse 75 07/20/19 05:00 Resp 18 07/20/19 07:52 BP 98/68 07/20/19 07:52 Pulse Ox 99 07/20/19 03:55 - Physical Examination General: No Apparent Distress HEENT: Positive: PERRL Neck: Positive: neck supple, trachea midline Cardiac: Positive: irregularly irregular, S1/S2 Lungs: Positive: Decreased Breath Sounds Neuro: Positive: Grossly Intact Abdomen: Negative: Tender Skin: Negative: Rash Musculoskeletal: No Pain Extremities: Present: +1 Edema (BLE) - Labs and Meds CBC 07/20/19 Range/Units 03:32 WBC 5.3 (4.5-11.0) K/mm3 RBC 3.54 L (3.65-5.03) M/mm3 Hgb 8.9 L (10.1-14.3) gm/dl Hct 29.5 L (30.3-42.9) % Plt Count 168 (140-440) K/mm3 Comprehensive Metabolic Panel 07/20/19 Range/Units 03:32 Sodium 138 (137-145) mmol/L Potassium 4.9 (3.6-5.0) mmol/L Chloride 96.0 L (98-107) mmol/L Carbon Dioxide 31 H (22-30) mmol/L BUN 24 H (7-17) mg/dL Creatinine 1.5 H (0.7-1.2) mg/dL Glucose 110 H (65-100) mg/dL Calcium 8.9 (8.4-10.2) mg/dL - Imaging and Cardiology EKG: report reviewed Echo: report reviewed - Telemetry EKG Rhythm: Atrial Fibrillation
--- NOTE | 2019-07-20 12:55 | Consultation ---
History of Present Illness Consult date: 07/20/19 Reason for consult: dyspnea, COPD, pleural effusion, lung mass History of present illness: This is 68 year old female admitted with shortness of breath. Patient has history of COPD, Hypertension and CHF. According to the patient she has home O2. Patient has heavy history of smoking, 1 pack x 40 years. still soking. Counseled to stop smoking. Drinks alcohol some times heavy. Denies drug abuse. 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 Patient and has 4 children. Patient allergic to Lisinopril. Patient complaining shortness of breath and non productive cough. Patient chest xray reported large right pleural effusion and right basilar consolidation. Patient has CAT scan of chest 07/19/19 reported 1. Right upper lobe mass abutting the medial aspect of the pleura, configuration is more in keeping with a pulmonary lesion rather than right paratracheal adenopathy does worrisome for lung carcinoma 2. Mediastinal lymphadenopathy 3. Airspace changes right lower lobe with moderate size right pleural effusion 4. Cardiac enlargement Recommend Thoracentesis and percutaneous needle biosy of right chest lesion Under CT guidance. Past History Past Medical History: COPD, heart failure, hypertension, other (as per HPI) Social history: smoking ( History of smoking 1 pack x 40 years.), alcohol abuse Medications and Allergies Allergies Allergy/AdvReac Type Severity Reaction Status Date / Time No Known Allergies Allergy Verified 07/18/19 23:05 Home Medications Medication Instructions Recorded Confirmed Last Taken Type HYDROcodone/APAP 5-325 [[place] 1 each PO Q6HR PRN #12 tablet 12/17/18 07/19/19 Unknown Rx 5/325] Active Meds: Active Medications Acetaminophen (Tylenol) 650 mg PO Q4H PRN PRN Reason: Pain MILD(1-3)/Fever >100.5/KENDALL Last Admin: 07/19/19 22:00 Dose: 650 mg Documented by: Enoxaparin Sodium (Enoxaparin) 100 mg 1 mg/kg (100 mg) SUB-Q Q12HR [facility] Last Admin: 07/19/19 21:57 Dose: 100 mg Documented by: Famotidine (Pepcid) 20 mg PO BID [facility] Last Admin: 07/19/19 21:59 Dose: 20 mg Documented by: Furosemide (Lasix) 40 mg IV 0600,1800 [facility] Last Admin: 07/20/19 06:16 Dose: 40 mg Documented by: Hydromorphone HCl (Dilaudid) 0.5 mg IV Q3H PRN PRN Reason: Pain , Severe (7-10) Levofloxacin/Dextrose (Levaquin 750mg/150ml) 750 mg in 150 mls @ 100 mls/hr IV Q48HR [facility]; Protocol Methylprednisolone Sodium Succinate (Solu-Medrol) 60 mg IV Q8HR [facility] Metoclopramide HCl (Reglan) 10 mg IV Q6H PRN PRN Reason: Nausea And Vomiting Metoprolol Tartrate (Metoprolol) 50 mg PO BID [facility] Last Admin: 07/19/19 21:59 Dose: 50 mg Documented by: Ondansetron HCl (Zofran) 4 mg IV Q8H PRN PRN Reason: Nausea And Vomiting Last Admin: 07/19/19 22:06 Dose: 4 mg Documented by: Oxycodone/Acetaminophen (Percocet 5/325) 1 tab PO Q6H PRN PRN Reason: Pain, Moderate (4-6) Sodium Chloride (Sodium Chloride Flush Syringe 10 Ml) 10 ml IV BID [facility] Last Admin: 07/19/19 22:01 Dose: 10 ml Documented by: Sodium Chloride (Sodium Chloride Flush Syringe 10 Ml) 10 ml IV PRN PRN PRN Reason: LINE FLUSH Valsartan (Diovan) 160 mg PO BID [facility] Last Admin: 07/19/19 21:57 Dose: 160 mg Documented by: Review of Systems All systems: negative Physical Examination Vital signs: Vital Signs Pulse Resp 93 H 19 07/18/19 17:27 07/18/19 17:27 General appearance: no acute distress, alert Eyes: non-icteric ENT: oropharynx moist Neck: supple, no JVD Ascultation: Right: diminished breath sounds, Bilateral: wheezes (Mild) Cardiovascular: regular rate and rhythm Gastrointestinal: normoactive bowel sounds, soft, non-tender Integumentary: normal Extremities: no cyanosis, edema Musculoskeletal: no deformities Gait: poor gait normal mental status, non-focal exam, pupils equal and round, CN II-XII normal mood appropriate Results - Laboratory Findings CBC and BMP: 07/20/19 03:32 07/20/19 03:32 Abnormal lab findings: Abnormal Labs 07/18/19 07/18/1920 17:56 17:56 03:31 WBC 2.9 L RBC 3.49 L Hgb 9.4 L 8.8 L Hct 28.8 L MCH 25 L 25 L RDW 25.0 H 24.5 H Seg Neuts % (Manual) 87.0 H 83.0 H Lymphocytes % (Manual) 10.0 L Lymphocytes # (Manual) 0.5 L 0.5 L Potassium Chloride 96.2 L Carbon Dioxide BUN Creatinine Glucose 112 H Alkaline Phosphatase 149 H NT-Pro-B Natriuret Pep 3321 H Albumin 3.8 L 07/19/19 07/20/19 07/20/19 03:31 03:32 03:32 WBC RBC 3.54 L Hgb 8.9 L Hct 29.5 L MCH 25 L RDW 23.6 H Seg Neuts % (Manual) Lymphocytes % (Manual) Lymphocytes # (Manual) Potassium 5.3 H D Chloride 96.3 L 96.0 L Carbon Dioxide 31 H BUN 24 H Creatinine 1.5 H Glucose 128 H 110 H Alkaline Phosphatase 148 H NT-Pro-B Natriuret Pep Albumin - Diagnostic Findings Chest x-ray: report reviewed, image reviewed CT scan - chest: report reviewed, image reviewed Additional studies: CHEST 1 VIEW 07/18/19 INDICATION / CLINICAL INFORMATION: Shortness of breath. COMPARISON: None available. FINDINGS: SUPPORT DEVICES: None. HEART / MEDIASTINUM: Moderately enlarged. LUNGS / PLEURA: Left lung is clear. There is a moderate-sized right pleural effusion and right lower lobe consolidation. There is questionable nodule at the right apex. No pneumothorax. ADDITIONAL FINDINGS: No significant additional findings. IMPRESSION: 1 Right pleural effusion and right basilar lung consolidation. CT CHEST WITH CONTRAST 07/19/19 INDICATION / CLINICAL INFORMATION: MAIN: SOB; right sided effusion; pulmonary nodule. Omnipaque 300, 100ml give for exam.. TECHNIQUE: Axial CT images were obtained through the chest after 100 cc Omnipaque 300 milligrams percent IV contrast. All CT scans at this location are performed using CT dose reduction for ALARA by means of automated exposure control. COMPARISON: None available. FINDINGS: HEART: Cardiac enlargement is present. Mild coronary calcifications present THORACIC AORTA: Atherosclerotic calcified plaque thoracic aorta MEDIASTINUM and VALE: There is a large pretracheal retrocaval lymph node measuring 1.5 cm in short axis (Station 4R) enlargement LUNGS: There is a 2.2 cm round mass adjacent to the medial pleura right upper lobe worrisome for a lung carcinoma. Airspace changes right lower lobe is noted. PLEURA: Moderate size right pleural effusion. No pneumothorax. ADDITIONAL FINDINGS: None. UPPER ABDOMEN: No significant abnormality. SKELETAL SYSTEM: No significant abnormality. IMPRESSION: 1. Right upper lobe mass abutting the medial aspect of the pleura, configuration is more in keeping with a pulmonary lesion rather than right paratracheal adenopathy does worrisome for lung carcinoma 2. Mediastinal lymphadenopathy 3. Airspace changes right lower lobe with moderate size right pleural effusion 4. Cardiac enlargement Signer Name: Bjorn Garcia MD Signed: 07/19/2019 6:14 PM Workstation Name: [facility] Assessment and Plan his is 68 year old female admitted with shortness of breath. Patient has history of COPD, Hypertension and CHF. According to the patient she has home O2. Patient has heavy history of smoking, 1 pack x 40 years. still soking. Counseled to stop smoking. Drinks alcohol some times heavy. Denies drug abuse. 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 Patient allergic to Lisinopril. Patient complaining shortness of breath and non productive cough. Patient chest xray reported large right pleural effusion and right basilar consolidation. Patient has CAT scan of chest 07/19/19 reported 1. Right upper lobe mass abutting the medial aspect of the pleura, configuration is more in keeping with a pulmonary lesion rather than right paratracheal adenopathy does worrisome for lung carcinoma 2. Mediastinal lymphadenopathy 3. Airspace changes right lower lobe with moderate size right pleural effusion 4. Cardiac enlargement Recommend Thoracentesis and percutaneous needle biosy of right chest lesion Under CT guidance. - Patient Problems (1) Pleural effusion, right Current Visit: Yes Status: Acute Plan to address problem: Right Thoracentesis under CT guidance by interventional radiology and send pleural fluid to cell count, Cytology, LDH,Protein, Amylase and Glucose, Gram stain, C&S, AFB, Fungus. Hold S/C lovenox at least 12 hours before the procedure. (2) COPD (chronic obstructive pulmonary disease) Current Visit: Yes Status: Chronic Qualifiers: Emphysema type: unspecified Plan to address problem: O2 4 litres via nasal canula. Albuterol/atrovent aerosol treatments q 6 hours. Continue I/V solumedrol Continue Levaquin Patient is on S/C Heparin. Continue Famotidine. (3) Lung mass Current Visit: Yes Status: Chronic Plan to address problem: If Pleural fluid cytology is negative, Obtain percutaneous needle biopsy of Right chest lesion under CT Guidance. (4) Severe pulmonary arterial systolic hypertension Current Visit: Yes Status: Chronic Plan to address problem: Likely secondary to COPD and CHF. Optimize treatment for both dose conditions. (5) Tobacco use Current Visit: Yes Status: Chronic Plan to address problem: Counselled to stop smoking. (6) Acute heart failure with preserved ejection fraction Current Visit: Yes Status: Acute Plan to address problem: Management as per cardiology. (7) Acute on chronic respiratory failure Current Visit: Yes Status: Acute Plan to address problem: Management as per Cardiology. (8) Atrial fibrillation Current Visit: Yes Status: Chronic Plan to address problem: Managent as per cardiology. Patient is on S/C Lovenox. (9) HLD (hyperlipidemia) Current Visit: Yes Status: Chronic Qualifiers: Hyperlipidemia type: mixed hyperlipidemia Qualified Code(s): E78.2 - Mixed hyperlipidemia Plan to address problem: Management as per primary care. (10) HTN (hypertension) Current Visit: Yes Status: Chronic Qualifiers: Hypertension type: essential hypertension Qualified Code(s): I10 - Essential (primary) hypertension Plan to address problem: Management as per primary care.
[2019-07-20] MEDS: FAMOTIDINE 20 MG TAB PO SCH ×2 (12:57→22:50)
[2019-07-20] MEDS: VALSARTAN 160MG TAB PO SCH ×2 (12:57→22:50)
[2019-07-20] MEDS: METOPROLOL TARTRATE 50 MG TAB PO SCH ×2 (13:01→22:50)
[2019-07-20] MEDS: ENOXAPARIN 100 MG/1 ML INJ SUB-Q SCH ×2 (13:01→22:50)
[2019-07-20] MEDS: methylPREDNISolone Sod Succinate 125 MG/2 ML INJ IV SCH ×3 (13:02→23:06)
[2019-07-21 05:09] LABS: Basophils % (Auto) 0.1 % (0.0-1.8); Hemoglobin 9.5 gm/dl (10.1-14.3); Lymphocytes # (Auto) 0.5 K/mm3 (1.2-5.4); Lymphocytes % (Auto) 16.9 % (13.4-35.0); Mean Corpuscular HGB Conc 30 % (30-34); Mean Corpuscular Volume 83 fl (79-97); Monocytes % (Auto) 1.4 % (0.0-7.3); Platelet Count 180 K/mm3 (140-440)
[2019-07-21 05:11] LABS: Hematocrit 31.6 % (30.3-42.9); Red Cell Distribution Width 23.6 % (13.2-15.2)
[2019-07-21 05:25] LABS: Albumin 3.6 g/dL (3.9-5); Calcium 9.1 mg/dL (8.4-10.2)
[2019-07-21] MEDS: FUROSEMIDE 40 MG/4 ML INJ IV SCH (06:55)
[2019-07-21] MEDS: methylPREDNISolone Sod Succinate 125 MG/2 ML INJ IV SCH ×3 (07:00→22:13)
[2019-07-21] MEDS ORDERED: SODIUM POLYSTYRENE 15 GM/60 ML ORAL LIQD PO ONE (10:00)
[2019-07-21] MEDS: FAMOTIDINE 20 MG TAB PO SCH ×2 (10:07→22:13)
[2019-07-21] MEDS: METOPROLOL TARTRATE 50 MG TAB PO SCH ×2 (10:07→22:13)
[2019-07-21] MEDS: VALSARTAN 160MG TAB PO SCH (10:07)
[2019-07-21] MEDS: ENOXAPARIN 100 MG/1 ML INJ SUB-Q SCH (10:09)
[2019-07-21] MEDS: oxyCODONE /ACETAMINOPHEN 5-325MG TAB PO PRN (10:16)
--- NOTE | 2019-07-21 10:16 | Progress Note ---
Assessment and Plan Acute and chronic respiratory failure on home O2 at 3L/min RUL lung mass with pleural effusion- probable malignancy COPD Tobacco use disorder/Nicotine dependence- ongoing Morbid obesity Acute heart failure with preserved ejection fraction Atrial fibrillation Severe pulmonary arterial systolic hypertension Hyperkalemia -Supplemental oxygen to keep O2 sats 88-90% -ABG -Bronchodilators, nebulized steroids -CT guided biopsy of RUL mass, diagnostic/therapeutic thoracentesis. -Send pleural fluid for studies including cytology -Stop Enoxaparin for procedure, can resume post procedure -Stress ulcer prophylaxis while on high dose steroids -Antibiotics for AE-COPD, to complete 5 day course -Nicotine withdrawal precautions -Smoking cessation counselling -Steroids with taper in the next 48 hours -Chronic COPD medications -Heart failure measures per Cardiology -Avoid nephrotoxins, adjust all medications for GFR and CrCL -Medical management/ redistribution therapies of hyperkalemia- defer primary service. Await CT guided biopsy and pleural fluid studies for further management decisions All other care per Attending and other consultants Subjective Date of service: 07/21/19 Principal diagnosis: Chf exacerbation,RUL mass,PNA Interval history: F/up Acute and chronic respiratory failure; AE-COPD; RUL lung mass with right pleural effusion; tobacco use disorder Seen and examined. Nursing and respiratory staff consulted. No adverse overnight events reported. Vitals, labs, medications, chart and imaging reviewed. She is sitting up at the side of the bed, raspy voice. She has ongoing shortness of breath, denies any chest pain, no hemoptysis. Objective Vital Signs - 12hr 07/20/19 07/20/19 07/21/19 22:50 23:03 03:53 Temperature 98.1 F 98.3 F Pulse Rate 88 83 75 Respiratory 18 18 Rate Blood Pressure 138/88 136/88 132/88 O2 Sat by Pulse 97 96 Oximetry 07/21/19 07/21/19 07/21/19 05:00 07:33 10:07 Temperature 98.0 F Pulse Rate 75 82 82 Respiratory 20 Rate Blood Pressure 155/98 155/98 O2 Sat by Pulse 94 Oximetry Constitutional: no acute distress, alert, other (sitting up at the side of the bed) Eyes: non-icteric ENT: oropharynx moist Neck: supple, no lymphadenopathy, no JVD Effort: mildly labored Ascultation: Right: diminished breath sounds, Bilateral: wheezes ([place] ) Cardiovascular: irregular rhythm, other (S1,S2, no murmurs) Gastrointestinal: normoactive bowel sounds, soft, non-tender Integumentary: normal Extremities: no cyanosis, edema Neurologic: normal mental status, non-focal exam, pupils equal and round, CN II- XII normal, motor strength normal and Psychiatric: mood appropriate, affect normal CBC and BMP: 07/21/19 04:20 07/21/19 04:20 Abnormal lab findings: Abnormal Labs 07/18/19 07/18/19 07/19/19 17:56 17:56 03:31 WBC 2.9 L RBC 3.49 L Hgb 9.4 L 8.8 L Hct 28.8 L MCH 25 L 25 L RDW 25.0 H 24.5 H Lymph # Seg Neutrophils % Seg Neuts % (Manual) 87.0 H 83.0 H Lymphocytes % (Manual) 10.0 L Lymphocytes # (Manual) 0.5 L 0.5 L Sodium Potassium Chloride 96.2 L Carbon Dioxide BUN Creatinine Glucose 112 H Alkaline Phosphatase 149 H NT-Pro-B Natriuret Pep 3321 H Albumin 3.8 L 07/19/19 07/20/19 07/20/19 03:31 03:32 03:32 WBC RBC 3.54 L Hgb 8.9 L Hct 29.5 L MCH 25 L RDW 23.6 H Lymph # Seg Neutrophils % Seg Neuts % (Manual) Lymphocytes % (Manual) Lymphocytes # (Manual) Sodium Potassium 5.3 H D Chloride 96.3 L 96.0 L Carbon Dioxide 31 H BUN 24 H Creatinine 1.5 H Glucose 128 H 110 H Alkaline Phosphatase 148 H NT-Pro-B Natriuret Pep Albumin 07/21/19 07/21/19 04:20 04:20 WBC 3.2 L RBC Hgb 9.5 L Hct MCH 25 L RDW 23.6 H Lymph # 0.5 L Seg Neutrophils % 81.6 H Seg Neuts % (Manual) Lymphocytes % (Manual) Lymphocytes # (Manual) Sodium 136 L Potassium 5.6 H Chloride 94.5 L Carbon Dioxide BUN 32 H Creatinine 1.8 H Glucose 133 H Alkaline Phosphatase 138 H NT-Pro-B Natriuret Pep Albumin 3.[address] scan - chest: image reviewed Additional Studies: Patient has CAT scan of chest 07/19/19 reported 1. Right upper lobe mass abutting the medial aspect of the pleura, configuration is more in keeping with a pulmonary lesion rather than right paratracheal adenopathy does worrisome for lung carcinoma 2. Mediastinal lymphadenopathy 3. Airspace changes right lower lobe with moderate size right pleural effusion 4. Cardiac enlargement Allied health notes reviewed: nursing
--- NOTE | 2019-07-21 10:31 | Progress Note ---
Assessment and Plan Per pulmonary - recommend Thoracentesis and percutaneous needle biosy of right chest lesion Under CT guidance. Hold IV lasix and ARB today in setting of increased renal indices and hyperkalemia today. F/u BMP in AM. Nephrology consultation pending. Cont full dosage lovenox BID and hold home Xarelto in regards to AFib pending pulmonary w/u. May hold lovenox 12 hours prior to biopsy. The patient has been seen in conjunction with Dr. Elio Sotelo who agrees with the assessment and plan of care. - Patient Problems (1) Acute heart failure with preserved ejection fraction Current Visit: Yes Status: Acute (2) Lung mass Current Visit: Yes Status: Chronic (3) Severe pulmonary arterial systolic hypertension Current Visit: Yes Status: Chronic (4) Pleural effusion, right Current Visit: Yes Status: Acute (5) COPD (chronic obstructive pulmonary disease) Current Visit: Yes Status: Chronic Qualifiers: Emphysema type: unspecified (6) Acute on chronic respiratory failure Current Visit: Yes Status: Acute (7) Accelerated hypertension Current Visit: Yes Status: Acute (8) Atrial fibrillation Current Visit: Yes Status: Chronic (9) Anemia Current Visit: Yes Status: Acute (10) Tobacco use Current Visit: Yes Status: Chronic Subjective Date of service: 07/21/19 Principal diagnosis: Chf exacerbation,RUL mass,PNA Interval history: Pt resting up in chair, c/o SOB, on O2 via [place]. tele reviewed - in AFib with HR 80s. Objective Last Vital Signs Temp 98.0 F 07/21/19 07:33 Pulse 82 07/21/19 10:07 Resp 20 07/21/19 07:33 BP 155/98 07/21/19 10:07 Pulse Ox 94 07/21/19 07:33 - Physical Examination General: No Apparent Distress HEENT: Positive: PERRL Neck: Positive: neck supple, trachea midline Cardiac: Positive: irregularly irregular, S1/S2 Lungs: Positive: Decreased Breath Sounds Neuro: Positive: Grossly Intact Abdomen: Negative: Tender Skin: Negative: Rash Musculoskeletal: No Pain Extremities: Present: +1 Edema (BLE) - Labs and Meds Cardiac Enzymes 07/21/19 Range/Units 04:20 AST 18 (5-40) units/L CBC 07/21/19 Range/Units 04:20 WBC 3.2 L (4.5-11.0) K/mm3 RBC 3.80 (3.65-5.03) M/mm3 Hgb 9.5 L (10.1-14.3) gm/dl Hct 31.6 (30.3-42.9) % Plt Count 180 (140-440) K/mm3 Lymph # 0.5 L (1.2-5.4) K/mm3 [place] # 0.0 (0.0-0.8) K/mm3 Eos # 0.0 (0.0-0.4) K/mm3 Baso # 0.0 (0.0-0.1) K/mm3 Comprehensive Metabolic Panel 07/21/19 Range/Units 04:20 Sodium 136 L (137-145) mmol/L Potassium 5.6 H (3.6-5.0) mmol/L Chloride 94.5 L (98-107) mmol/L Carbon Dioxide 30 (22-30) mmol/L BUN 32 H (7-17) mg/dL Creatinine 1.8 H (0.7-1.2) mg/dL Glucose 133 H (65-100) mg/dL Calcium 9.1 (8.4-10.2) mg/dL AST 18 (5-40) units/L ALT 15 (7-56) units/L Alkaline Phosphatase 138 H (35-129) units/L Total Protein 7.3 (6.3-8.2) g/dL Albumin 3.6 L (3.9-5) g/dL - Imaging and Cardiology EKG: report reviewed Echo: report reviewed
[2019-07-21 12:15] LABS: INR 1.41 (0.87-1.13)
--- NOTE | 2019-07-21 14:03 | Consultation ---
History of Present Illness - Reason for Consult Consult date: 07/21/19 acute renal failure, hyperkalemia - History of Present Illness This is 68 YO AAF with history significant for HTN, COPD, chronic respiratory failure on home O2, Atrial fibrillation on Xarelto, CHF, ongoing tobacco use who presented to [facility] ED 07/17 with c/o sob. She reports left breast swelling, progressively worsening SOB and BLE edema for the past several weeks. Patient admits to 4 pillow orthopnea. Patient denies any chest pain, cough, fever, chills, diaphoresis, dizziness, syncope, N, V, D, abd pain, dizziness or syncope. CXR per radiology read shows right pleural effusion with questionable nodule at right apex. CT scan of chest 07/19/19 reported 1. Right upper lobe mass abutting the medial aspect of the pleura, configuration is more in keeping with a pulmonary lesion rather than right paratracheal adenopathy does worrisome for lung carcinoma, 2. Mediastinal lymphadenopathy, 3. Airspace changes right lower lobe with moderate size right pleural effusion, 4. Cardiac enlargement. Creatinine level has increased to 1.8 from 1 on admission. K level is 5.6. Nephrology was consulted for further evaluation. Past History Past Medical History: atrial fib, COPD, heart failure, hypertension, other (as per HPI) Social history: smoking ( History of smoking 1 pack x 40 years.), alcohol abuse Medications and Allergies Allergies Allergy/AdvReac Type Severity Reaction Status Date / Time No Known Allergies Allergy Verified 07/18/19 23:05 Home Medications Medication Instructions Recorded Confirmed Last Taken Type HYDROcodone/APAP 5-325 [[place] 1 each PO Q6HR PRN #12 tablet 12/17/18 07/19/19 Unknown Rx 5/325] Active Meds: Active Medications Acetaminophen (Tylenol) 650 mg PO Q4H PRN PRN Reason: Pain MILD(1-3)/Fever >100.5/KENDALL Last Admin: 07/19/19 22:00 Dose: 650 mg Documented by: Albuterol/Ipratropium (Duoneb *Not For Prn Use*) 1 ampul IH TIDRT [facility] Arformoterol Tartrate (Brovana Nebu) 15 mcg IH Q12HRT [facility] Budesonide (Pulmicort) 0.5 mg IH Q12HRT [facility] Famotidine (Pepcid) 20 mg PO BID [facility] Last Admin: 07/21/19 10:07 Dose: 20 mg Documented by: Hydromorphone HCl (Dilaudid) 0.5 mg IV Q3H PRN PRN Reason: Pain , Severe (7-10) Levofloxacin (Levaquin) 750 mg PO Q48HR [facility] Stop: 07/28/19 10:01 Methylprednisolone Sodium Succinate (Solu-Medrol) 60 mg IV Q8HR [facility] Last Admin: 07/21/19 07:00 Dose: 60 mg Documented by: Metoclopramide HCl (Reglan) 10 mg IV Q6H PRN PRN Reason: Nausea And Vomiting Last Admin: 07/21/19 04:06 Dose: 10 mg Documented by: Metoprolol Tartrate (Metoprolol) 50 mg PO BID [facility] Last Admin: 07/21/19 10:07 Dose: 50 mg Documented by: Ondansetron HCl (Zofran) 4 mg IV Q8H PRN PRN Reason: Nausea And Vomiting Last Admin: 07/19/19 22:06 Dose: 4 mg Documented by: Oxycodone/Acetaminophen (Percocet 5/325) 1 tab PO Q6H PRN PRN Reason: Pain, Moderate (4-6) Last Admin: 07/21/19 10:16 Dose: 1 tab Documented by: Sodium Chloride (Sodium Chloride Flush Syringe 10 Ml) 10 ml IV BID [facility] Last Admin: 07/21/19 10:19 Dose: 10 ml Documented by: Sodium Chloride (Sodium Chloride Flush Syringe 10 Ml) 10 ml IV PRN PRN PRN Reason: LINE FLUSH Review of Systems Constitutional: no weight loss, no weight gain, no fever, no chills, no an orexia, no weakness Breasts: deferred Cardiovascular: edema, shortness of breath, dyspnea on exertion, high blood pressure, leg edema, decreased exercise tolerance, no chest pain, no orthopnea, no syncope, no lightheadedness Respiratory: cough, shortness of breath, dyspnea on exertion Gastrointestinal: no abdominal pain, no nausea, no vomiting, no diarrhea, no melena Rectal: no bleeding Neurological: no seizures, no syncope, no aphasia, no change in speech Exam - Vital Signs Vital signs: Vital Signs Pulse Resp 93 H 19 07/18/19 17:27 07/18/19 17:27 - General Appearance General appearance: well-developed, well-nourished, obese, other (no distress) EENT: ATNC, PERRL, hearing intact, vision intact Neck: Present: neck supple, trachea midline Respiratory: Clear to Ascultation Heart: S1S2, no murmurs Gastrointestinal: Present: normoactive bowel sounds, obese. Absent: tenderness, distended Integumentary: no rash, warm and dry Neurologic: no focal deficit, no asterixis, alert and oriented x3 Musculoskeletal: Present: other (1+ LE edema noted) Psychiatric: cooperative Results - Lab Results 07/21/19 04:20 07/21/19 17:06 Most recent lab results Calcium 9.1 mg/dL (8.4-10.2) 07/21/19 04:20 Assessment and Plan 1. Acute kidney injury: [place] in setting of contrast induced nephropathy. Urine studies ordered. Monitor renal function. Avoid nephrotoxic agents. Meds dosage based on GFR. 2. FEN: Hyperkalemia, improved, monitor. Monitor lytes and volume status. 3. Acute CHF, POA: Normal LVEF, followed by Cards. 4. Severe pulmonary arterial systolic hypertension. 5. Lung mass. 6. Acute on chronic hypoxic respiratory failure: Pulmonary following. 7. Right sided Pleural effusion: S/p thoracentesis. 8. Hypertension. 9. Atrial fibrillation. 10. Anemia.
--- NOTE | 2019-07-21 14:28 | Progress Note ---
Assessment and Plan Assessment and plan: The patient is a 68-year-old female present with a chief complaint of shortness of breath. Patient states she is had progressive shortness of breath over the past 3 weeks. Patient admits to 4 pillow orthopnea. Patient denies chest pain or fevers. Patient states she began to cough today and has been productive of white sputum. The patient states she is developed bilateral lower extremity edema over the past 3 weeks as well. Patient has a history of CHF and states she is on a "water pill." The patient was administered Lasix 40 mg IV by EMS prior to arrival. Day#2 Some improvement Day#3 Still SOB Day#2 SOB slightly better Day#[address] chest shows RUL mass Pulmonary consult Day 4 07/21/2019. Patient seen lying on her right side requesting for immediate thoracentesis due to shortness of breath. Discussed clinical care with the patient. Will hold Lasix as renal function is getting worse. Will obtain nephrology consultation. We will give a dose of Kayexalate. Will monitor renal function and potassium levels. - Patient Problems (1) CHF exacerbation Current Visit: Yes Status: Acute Qualifiers: Heart failure type: combined systolic and diastolic Qualified Code(s): I50.43 - Acute on chronic combined systolic (congestive) and diastolic (congestive) heart failure Plan to address problem: Daily weigts Strict I/o's ECHO for EF Hold Lasix Cardiology consult (2) Pleural effusion, right Current Visit: Yes Status: Acute Plan to address problem: Sec to CHF Some airspace disease Empiric IV Levaquin RUL mass Pulmonary consult (3) HTN (hypertension) Current Visit: Yes Status: Chronic Qualifiers: Hypertension type: essential hypertension Qualified Code(s): I10 - Esse ntial (primary) hypertension Plan to address problem: COnt anihypertensives and adjust BP meds (4) COPD (chronic obstructive pulmonary disease) Current Visit: Yes Status: Chronic Qualifiers: Emphysema type: unspecified Plan to address problem: Duonebs prn (5) HLD (hyperlipidemia) Current Visit: Yes Status: Chronic Qualifiers: Hyperlipidemia type: mixed hyperlipidemia Qualified Code(s): E78.2 - Mixed hyperlipidemia Plan to address problem: Cont statins (6) DVT prophylaxis Current Visit: Yes Status: Acute Plan to address problem: On Heparin and GI prophylaxis (7) Discharge planning issues Current Visit: Yes Status: Acute Plan to address problem: Patient has a RUL mass PNA ans CHF exacerbation which needs workup History Interval history: Patient seen and examined this morning remains short of breath at rest. Hospitalist Physical - Physical exam Narrative exam: General appearance: Present: mild respiratory distress, well-nourished - EENT Eyes: PERRL, EOM intact ENT: hearing intact, clear oral mucosa Ears: bilateral: normal - Neck Neck: supple, normal ROM - Respiratory Respiratory effort: normal Respiratory: bilateral: CTA, rales, rhonchi - Breasts Breasts: normal - Cardiovascular Heart rate: 78 Rhythm: regular Heart Sounds: Present: S1 & S2. Absent: gallop, rub Extremities: no ischemia, pulses intact, No edema, normal color, Full ROM - Gastrointestinal General gastrointestinal: Present: soft, non-tender, non-distended, normal bowel sounds - Genitourinary Female genitourinary: normal - Integumentary Integumentary: clear, warm, dry - Musculoskeletal Musculoskeletal: 1, strength equal bilaterally - Neurologic Neurologic: moves all extremities - Psychiatric Psychiatric: memory intact, appropriate mood/affect, intact judgment & insight - Allied health notes Allied health notes reviewed: nursing, case management - Constitutional Vitals: Temp Pulse Resp BP Pulse Ox 98.0 F 84 20 154/100 94 07/21/19 11:24 07/21/19 11:24 07/21/19 11:24 07/21/19 11:24 07/21/19 11:24 General appearance: Present: mild distress, well-nourished HEART Score - HEART Score EKG: Non-specific Age: > 65 Risk factors: > 3 risk factors or hx of atherosclerotic disease Troponin: Troponin T < 0.010 ng/mL (0.00-0.029) 07/18/19 17:56 - Critical Actions Critical Actions: 4-6 pts:12-16.6% risk of adverse cardiac event. Should be admitted Results - Labs CBC & Chem 7: 07/21/19 04:20 07/21/19 17:06 Labs: Laboratory Last Values WBC 3.2 K/mm3 (4.5-11.0) L 07/21/19 04:20 RBC 3.80 M/mm3 (3.65-5.03) 07/21/19 04:20 Hgb 9.5 gm/dl (10.1-14.3) L 07/21/19 04:20 Hct 31.6 % (30.3-42.9) 07/21/19 04:20 MCV 83 fl (79-97) 07/21/19 04:20 MCH 25 pg (28-32) L 07/21/19 04:20 MCHC 30 % (30-34) 07/21/19 04:20 RDW 23.6 % (13.2-15.2) H 07/21/19 04:20 Plt Count 180 K/mm3 (140-440) 07/21/19 04:20 Lymph % (Auto) 16.9 % (13.4-35.0) 07/21/19 04:20 [place] % (Auto) 1.4 % (0.0-7.3) 07/21/19 04:20 Eos % (Auto) 0.0 % (0.0-4.3) 07/21/19 04:20 Baso % (Auto) 0.1 % (0.0-1.8) 07/21/19 04:20 Lymph # 0.5 K/mm3 (1.2-5.4) L 07/21/19 04:20 [place] # 0.0 K/mm3 (0.0-0.8) 07/21/19 04:20 Eos # 0.0 K/mm3 (0.0-0.4) 07/21/19 04:20 Baso # 0.0 K/mm3 (0.0-0.1) 07/21/19 04:20 Add Manual Diff Complete 07/19/19 03:31 Total Counted 100 07/19/19 03:31 Seg Neutrophils % 81.6 % (40.0-70.0) H 07/21/19 04:20 Seg Neuts % (Manual) 83.0 % (40.0-70.0) H 07/19/19 03:31 Band Neutrophils % 0 % 07/19/19 03:31 Lymphocytes % (Manual) 16.0 % (13.4-35.0) 07/19/19 03:31 Reactive Lymphs % (Man) 0 % 07/19/19 03:31 Monocytes % (Manual) 1.0 % (0.0-7.3) 07/19/19 03:31 Eosinophils % (Manual) 0 % (0.0-4.3) 07/19/19 03:31 Basophils % (Manual) 0 % (0.0-1.8) 07/19/19 03:31 Metamyelocytes % 0 % 07/19/19 03:31 Myelocytes % 0 % 07/19/19 03:31 Promyelocytes % 0 % 07/19/19 03:31 Blast Cells % 0 % 07/19/19 03:31 Nucleated RBC % Not Reportable 07/19/19 03:31 Seg Neutrophils # 2.6 K/mm3 (1.8-7.7) 07/21/19 04:20 Seg Neutrophils # Man 2.4 K/mm3 (1.8-7.7) 07/19/19 03:31 Band Neutrophils # 0.0 K/mm3 07/19/19 03:31 Lymphocytes # (Manual) 0.5 K/mm3 (1.2-5.4) L 07/19/19 03:31 Abs React Lymphs (Man) 0.0 K/mm3 07/19/19 03:31 Monocytes # (Manual) 0.0 K/mm3 (0.0-0.8) 07/19/19 03:31 Eosinophils # (Manual) 0.0 K/mm3 (0.0-0.4) 07/19/19 03:31 Basophils # (Manual) 0.0 K/mm3 (0.0-0.1) 07/19/19 03:31 Metamyelocytes # 0.0 K/mm3 07/19/19 03:31 Myelocytes # 0.0 K/mm3 07/19/19 03:31 Promyelocytes # 0.0 K/mm3 07/19/19 03:31 Blast Cells # 0.0 K/mm3 07/19/19 03:31 WBC Morphology Not Reportable 07/19/19 03:31 Hypersegmented Neuts Not Reportable 07/19/19 03:31 Hyposegmented Neuts Not Reportable 07/19/19 03:31 Hypogranular Neuts Not Reportable 07/19/19 03:31 Smudge Cells Not Reportable 07/19/19 03:31 Toxic Granulation Not Reportable 07/19/19 03:31 Toxic Vacuolation Not Reportable 07/19/19 03:31 Dohle Bodies Not Reportable 07/19/19 03:31 Pelger-Huet Anomaly Not Reportable 07/19/19 03:31 Camilo Rods Not Reportable 07/19/19 03:31 Platelet Estimate Consistent w auto 07/19/19 03:31 Clumped Platelets Not Reportable 07/19/19 03:31 Plt Clumps, EDTA Not Reportable 07/19/19 03:31 Large Platelets Not Reportable 07/19/19 03:31 Giant Platelets Not Reportable 07/19/19 03:31 Platelet Satelliting Not Reportable 07/19/19 03:31 Plt Morphology Comment Not Reportable 07/19/19 03:31 RBC Morphology Not Reportable 07/19/19 03:31 Dimorphic RBCs Not Reportable 07/19/19 03:31 Polychromasia Not Reportable 07/19/19 03:31 Hypochromasia 1+ 07/19/19 03:31 Poikilocytosis Not Reportable 07/19/19 03:31 Anisocytosis 2+ 07/19/19 03:31 Microcytosis Few 07/19/19 03:31 Macrocytosis Few 07/19/19 03:31 Spherocytes Not Reportable 07/19/19 03:31 Pappenheimer Bodies Not Reportable 07/19/19 03:31 Sickle Cells Not Reportable 07/19/19 03:31 Target Cells Not Reportable 07/19/19 03:31 Tear Drop Cells Not Reportable 07/19/19 03:31 Ovalocytes Few 07/19/19 03:31 Helmet Cells Not Reportable 07/19/19 03:31 [place] Bodies Not Reportable 07/19/19 03:31 [place] Rings Not Reportable 07/19/19 03:31 [place] Cells Not Reportable 07/19/19 03:31 Bite Cells Not Reportable 07/19/19 03:31 Crenated Cell Not Reportable 07/19/19 03:31 Elliptocytes Not Reportable 07/19/19 03:31 Acanthocytes (Spur) Not Reportable 07/19/19 03:31 Rouleaux Not Reportable 07/19/19 03:31 Hemoglobin C Crystals Not Reportable 07/19/19 03:31 Schistocytes Rare 07/19/19 03:31 Malaria parasites Not Reportable 07/19/19 03:31 [place] Bodies Not Reportable 07/19/19 03:31 Hem Pathologist Commnt No 07/19/19 03:31 PT 17.3 Sec. (12.2-14.9) H 07/21/19 11:43 INR 1.41 (0.87-1.13) H 07/21/19 11:43 Sodium 136 mmol/L (137-145) L 07/21/19 04:20 Potassium 5.6 mmol/L (3.6-5.0) H 07/21/19 04:20 Chloride 94.5 mmol/L (98-107) L 07/21/19 04:20 Carbon Dioxide 30 mmol/L (22-30) 07/21/19 04:20 Anion Gap 17 mmol/L 07/21/19 04:20 BUN 32 mg/dL (7-17) H 07/21/19 04:20 Creatinine 1.8 mg/dL (0.7-1.2) H 07/21/19 04:20 Estimated GFR 34 ml/min 07/21/19 04:20 BUN/Creatinine Ratio 18 % 07/21/19 04:20 Glucose 133 mg/dL (65-100) H 07/21/19 04:20 Hemoglobin A1c 5.2 % (4-6) 07/19/19 03:31 Calcium 9.1 mg/dL (8.4-10.2) 07/21/19 04:20 Total Bilirubin 0.70 mg/dL (0.1-1.2) 07/21/19 04:20 AST 18 units/L (5-40) 07/21/19 04:20 ALT 15 units/L (7-56) 07/21/19 04:20 Alkaline Phosphatase 138 units/L (35-129) H 07/21/19 04:20 Total Creatine Kinase 67 units/L (30-135) 07/18/19 17:56 CK-MB (CK-2) 2.4 ng/mL (0.0-4.0) 07/18/19 17:56 CK-MB (CK-2) Rel Index 3.5 (0-4) 07/18/19 17:56 Troponin T < 0.010 ng/mL (0.00-0.029) 07/18/19 17:56 NT-Pro-B Natriuret Pep 3321 pg/mL (0-900) H 07/18/19 17:56 Total Protein 7.3 g/dL (6.3-8.2) 07/21/19 04:20 Albumin 3.6 g/dL (3.9-5) L 07/21/19 04:20 Albumin/Globulin Ratio 1.0 % 07/21/19 04:20 - Diagnostic Impressions Diagnostic Impressions: Echocardiogram 07/18/19 22:35 Transthoracic Echocardiogram Indication: SOB BP: 154/91 HR: 92 Conclusions *The study is technically limited due to poor acoustic windows. *Mild concentric left ventricular hypertrophy is observed. *Global left ventricular systolic function is normal. *The estimated ejection fraction is 50-55%. *Abnormal left ventricular diastolic function is observed. *The left atrium is severely dilated. *The right ventricle is severely dilated. *There is mild aortic regurgitation. *There is evidence of severe pulmonary hypertension. Findings Procedure Info: The study quality is technically difficult. The study is technically limited due to poor acoustic windows. Left Ventricle: The left ventricular chamber size is normal. Mild concentric left ventricular hypertrophy is observed. Global left ventricular systolic function is normal. The estimated ejection fraction is 50-55%. Abnormal left ventricular diastolic function is observed. Abnormal left ventricular diastolic filling is observed, consistent with impaired relaxation. Left Atrium: The left atrium is severely dilated. Right Ventricle: The right ventricle is severely dilated. The right ventricular global systolic function is moderately reduced. Right Atrium: The right atrial cavity size is severely dilated. Aortic Valve: Mild aortic leaflet calcification is visualized. There is mild aortic regurgitation. Mitral Valve: There is mitral annular calcification. Mild mitral leaflet calcification is visualized. There is trace of mitral regurgitation. Tricuspid Valve: The tricuspid valve leaflets are normal. There is moderate to severe tricuspid regurgitation. The right ventricular systolic pressure is calculated at 72 mmHg. There is evidence of severe pulmonary hypertension. Pulmonic Valve: The pulmonic valve is not well visualized. The pulmonic valve appears normal. There is mild pulmonic regurgitation. Pericardium: A pericardial effusion is visualized. There is a minimial pericardial effusion. Aorta: The aorta appears normal. Venous: The inferior vena cava is dilated. There is no change in the dimension of the inferior vena cava with respiration consistent with markedly increased right atrial pressure. Measurements Chambers 2D Name Value Normal Range IVSd (2D) 1.27 cm (0.6 - 1.1) LVPWd (2D) 1.22 cm (0.6 - 1.1) LVIDd (2D) 4.71 cm (3.7 - 5.6) LVIDs (2D) 3.77 cm (2 - 3.8) LV FS (2D) 20.09 % - EF Teichholz (2D) 41.13 % - Ao root diameter (2D) 3.52 cm (2 - 3.7) Volumes/Mass Name Value Normal Range LA ESV SP 4CH (A/L) 107.42 ml - LA ESV SP 2CH (A/L) 135.51 ml - LA ESV BP (A/L) 128.25 ml - LA ESV BP (A/L) index 63.49 ml/m2 - LA ESV SP 4CH (MOD) 94.91 ml - LA ESV SP 2CH (MOD) 126.36 ml - LA ESV BP (MOD) 115.15 ml - LA ESV BP (MOD) index 57.01 ml/m2 - Diastolic/Systolic Function Name Value Normal Range MV E-wave Vmax 0.95 m/sec - MV deceleration time 148.19 msec - Aortic Valve Name Value Normal Range AV Vmax 1.53 m/sec - AV VTI 26.2 cm - AV peak gradient 9.37 mmHg - AV mean gradient 5.14 mmHg - LVOT diameter 2.34 cm - LVOT Vmax 1.03 m/sec - LVOT VTI 15.48 cm - LVOT peak gradient 4.28 mmHg - LVOT mean gradient 2.19 mmHg - SV LVOT 66.43 ml - JULIEN (continuity Vmax) 2.9 cm2 - JULIEN (continuity VTI) 2.54 cm2 - AR PHT 945.01 msec - AR peak gradient 78.01 mmHg - Ascending Ao 3.94 cm - Tricuspid Valve Name Value Normal Range TR Vmax 3.75 m/sec - TR peak gradient 56 mmHg - RAP 15 mmHg - RVSP 72 mmHg - IVC diameter 2.9 cm (1.2 - 2.3) Pulmonic Valve/Qp:Qs Name Value Normal Range PV Vmax 1.06 m/sec - PV peak gradient 4.52 mmHg - WV end-diastolic Vmax 2.29 m/sec - PV acceleration time 76.12 msec - [place]/IV: Voiding Method Indwelling Catheter IV Catheter Type [Left INT / Saline Lock Antecubital] Active Medications - Current Medications Current Medications: Generic Name Dose Route Start Last Admin Trade Name Freq PRN Reason Stop Dose Admin Acetaminophen 650 mg 07/18/19 22:13 07/19/19 22:00 Tylenol PO 650 mg Q4H PRN Administration Pain MILD(1-3)/Fever >100.5/KENDALL Albuterol/Ipratropium 1 ampul 07/21/19 14:00 Duoneb *Not For Prn Use* IH TIDRT [facility] Arformoterol Tartrate 15 mcg 07/21/19 11:45 Brovana Nebu IH Q12HRT CHRISTINA Budesonide 0.5 mg 07/21/19 11:45 Pulmicort IH Q12HRT CHRISTINA Famotidine 20 mg 07/18/19 23:00 07/21/19 10:07 Pepcid PO 20 mg BID CHRISTINA Administration Hydromorphone HCl 0.5 mg 07/18/19 22:13 Dilaudid IV Q3H PRN Pain , Severe (7-10) Levofloxacin 750 mg 07/22/19 10:00 Levaquin PO 07/28/19 10:01 Q48HR [facility] Methylprednisolone Sodium Succinate 60 mg 07/20/19 09:00 07/21/19 07:00 Solu-Medrol IV 60 mg Q8HR CHRISTINA Administration Metoclopramide HCl 10 mg 07/18/19 22:13 07/21/19 04:06 Reglan IV 10 mg Q6H PRN Administration Nausea And Vomiting Metoprolol Tartrate 50 mg 07/19/19 22:00 07/21/19 10:07 Metoprolol PO 50 mg BID CHRISTINA Administration Ondansetron HCl 4 mg 07/18/19 22:13 07/19/19 22:06 Zofran IV 4 mg Q8H PRN Administration Nausea And Vomiting Oxycodone/Acetaminophen 1 tab 07/18/19 22:13 07/21/19 10:16 Percocet 5/325 PO 1 tab Q6H PRN Administration Pain, Moderate (4-6) Sodium Chloride 10 ml 07/18/19 23:00 07/21/19 10:19 Sodium Chloride Flush Syringe 10 Ml IV 10 ml BID CHRISTINA Administration Sodium Chloride 10 ml 07/18/19 22:13 Sodium Chloride Flush Syringe 10 Ml IV PRN PRN LINE FLUSH
--- NOTE | 2019-07-21 15:25 | XRay Report ---
CHEST 1 VIEW 1455 INDICATION / CLINICAL INFORMATION: Post thoracentesis. COMPARISON: 07/18/2019 FINDINGS: SUPPORT DEVICES: None HEART / MEDIASTINUM: Cardiomegaly LUNGS / PLEURA: Image is mildly blurred by motion. Small moderate right pleural effusion appears mild ly decreased. Associated atelectasis and/or infiltrate is seen in the right base. No pneumothorax is noted. ADDITIONAL FINDINGS: No significant additional findings. IMPRESSION: No complication of thoracentesis noted Signer Name: Haim Redd MD Signed: 07/21/2019 3:21 PM Workstation Name: [id number]
[2019-07-21] MEDS: ARFORMOTEROL 15 MCG/2 ML NEBU IH SCH ×2 (16:46→20:37)
[2019-07-21] MEDS: BUDESONIDE 0.5 MG/2 ML NEBU IH SCH ×2 (16:47→20:37)
[2019-07-21] MEDS: IPRATROPIUM/ALBUTEROL SULFATE 3 ML AMPUL.NEB IH SCH ×2 (16:47→20:37)
--- NOTE | 2019-07-21 16:53 | Ultrasound Report ---
ULTRASOUND-GUIDED RIGHT THORACENTESIS INDICATION: Right pleural effusion COMPARISON: CT chest 07/19/2019, chest x-ray 07/18/2019 Consent: Procedure was discussed at length with the patient in advance. Possible risks and benefits w ere discussed including pneumothorax, bleeding, and infection. Opportunity for questions was given. Nico marshall reported no pertinent allergies and is not on anticoagulant therapy. Patient gave informed con sent to the procedure. PROCEDURE: Timeout was performed. Ultrasound was used to localize a substantial pocket of fluid in th e right lower hemithorax using a posterior approach. Site was prepared and procedure was performed wi aseptic technique and generous local anesthesia. A skin renetta was made. A 5 [place] [employer] catheter wa s then introduced into the pleural effusion and initially 105 cc of slightly blood tinged yellowish c lear fluid was withdrawn by hand for laboratory used. Subsequently vacuum drainage was performed with control of flow by me during the procedure. A total of 700 cc of similar pleural fluid were withdraw n . The catheter was withdrawn and the site was secured. Post procedure chest x-ray was then performe d showing no pneumothorax or other obvious complication. Patient tolerated the procedure well and was returned to the floor in good condition. Complications: No significant complications occurred. Summary: Successful ultrasound-guided right thoracentesis Signer Name: Haim Redd MD Signed: 07/21/2019 4:48 PM Workstation Name: [id number]
[2019-07-21 17:56] LABS: Total Cells Counted 100 /mm3
[2019-07-22] MEDS: methylPREDNISolone Sod Succinate 125 MG/2 ML INJ IV SCH ×2 (05:48→14:20)
[2019-07-22] MEDS: BUDESONIDE 0.5 MG/2 ML NEBU IH SCH ×2 (07:31→21:11)
[2019-07-22] MEDS: ARFORMOTEROL 15 MCG/2 ML NEBU IH SCH ×2 (07:31→21:16)
[2019-07-22] MEDS: IPRATROPIUM/ALBUTEROL SULFATE 3 ML AMPUL.NEB IH SCH ×3 (07:33→21:11)
[2019-07-22 08:56] LABS: Calcium 8.9 mg/dL (8.4-10.2)
--- NOTE | 2019-07-22 08:59 | Progress Note ---
Assessment and Plan 1. Acute kidney injury: [place] in setting of contrast induced nephropathy. Urine studies ordered. Monitor renal function. Creatinine level 1.9 from 1.8 from 1.5. Avoid nephrotoxic agents. Meds dosage based on GFR. 2. FEN: Hyperkalemia, improved, monitor. LE edema: resume diuretics when appropriate. Monitor lytes and volume status. 3. Acute CHF, POA: Normal LVEF, followed by Cards. 4. Severe pulmonary arterial systolic hypertension. 5. Lung mass. 6. Acute on chronic hypoxic respiratory failure: Pulmonary following. 7. Right sided Pleural effusion: S/p thoracentesis. 8. Hypertension. 9. Atrial fibrillation. 10. Anemia. Objective: Patient was seen and examined at the bedside. Doing ok. Examination: General appearance: well-developed, appears stated age, obese, no distress HEENT: atraumatic Neck: neck supple, trachea midline Respiratory: Decreased Breath Sounds (bibasilar) Heart: regular, normal heart rate, S1S2, no murmur Gastrointestinal: obese, soft, bowel sounds present, not tender Integumentary: no rash, warm and dry Neurologic: AOX4 Ext: 1+ LE edema Subjective Date of service: 07/22/19 Principal diagnosis: Chf exacerbation,RUL mass,PNA Objective - Vital Signs Vital signs: Vital Signs - 12hr 07/21/19 07/21/19 07/21/19 22:13 23:05 23:45 Temperature 98.3 F Pulse Rate 92 H 78 92 H Pulse Rate [ Bilateral] Respiratory 20 Rate Respiratory Rate [Bilateral ] Blood Pressure 150/89 145/91 O2 Sat by Pulse 100 Oximetry 07/22/19 07/22/19 07/22/19 04:13 07:22 07:24 Temperature 98.5 F 97.8 F Pulse Rate 80 84 Pulse Rate [ Bilateral] Respiratory 20 20 Rate Respiratory Rate [Bilateral ] Blood Pressure 149/86 152/101 169/83 O2 Sat by Pulse 95 97 Oximetry 07/22/19 07/22/19 07:31 07:32 Temperature Pulse Rate Pulse Rate [ 92 H Bilateral] Respiratory Rate Respiratory 20 Rate [Bilateral ] Blood Pressure O2 Sat by Pulse 95 Oximetry - Lab 07/23/19 05:19 07/23/19 05:19 Most recent lab results Calcium 8.9 mg/dL (8.4-10.2) 07/22/19 07:45 Medications & Allergies - Medications Allergies/Adverse Reactions: Allergies No Known Allergies Allergy (Verified 07/18/19 23:05) Home Medications: Home Medications Medication Instructions Recorded Confirmed Last Taken Type HYDROcodone/APAP 5-325 [[place] 1 each PO Q6HR PRN #12 tablet 12/17/18 07/19/19 Unknown Rx 5/325] Active Medications: Generic Name Dose Route Start Last Admin Trade Name Freq PRN Reason Stop Dose Admin Acetaminophen 650 mg 07/18/19 22:13 07/19/19 22:00 Tylenol PO 650 mg Q4H PRN Administration Pain MILD(1-3)/Fever >100.5/KENDALL Albuterol/Ipratropium 1 ampul 07/21/19 14:00 07/22/19 07:33 Duoneb *Not For Prn Use* IH Not Given TIDRT CHRISTINA Arformoterol Tartrate 15 mcg 07/21/19 11:45 07/22/19 07:31 Brovana Nebu IH 15 mcg Q12HRT CHRISTINA Administration Budesonide 0.5 mg 07/21/19 11:45 07/22/19 07:31 Pulmicort IH 0.5 mg Q12HRT CHRISTINA Administration Famotidine 20 mg 07/18/19 23:00 07/21/19 22:13 Pepcid PO 20 mg BID CHRISTINA Administration Hydromorphone HCl 0.5 mg 07/18/19 22:13 Dilaudid IV Q3H PRN Pain , Severe (7-10) Levofloxacin 750 mg 07/22/19 10:00 Levaquin PO 07/28/19 10:01 Q48HR [facility] Methylprednisolone Sodium Succinate 60 mg 07/20/19 09:00 07/22/19 05:48 Solu-Medrol IV 60 mg Q8HR CHRISTINA Administration Metoclopramide HCl 10 mg 07/18/19 22:13 07/21/19 04:06 Reglan IV 10 mg Q6H PRN Administration Nausea And Vomiting Metoprolol Tartrate 50 mg 07/19/19 22:00 07/21/19 22:13 Metoprolol PO 50 mg BID CHRISTINA Administration Ondansetron HCl 4 mg 07/18/19 22:13 07/19/19 22:06 Zofran IV 4 mg Q8H PRN Administration Nausea And Vomiting Oxycodone/Acetaminophen 1 tab 07/18/19 22:13 07/21/19 10:16 Percocet 5/325 PO 1 tab Q6H PRN Administration Pain, Moderate (4-6) Sodium Chloride 10 ml 07/18/19 23:00 07/21/19 22:14 Sodium Chloride Flush Syringe 10 Ml IV 10 ml BID CHRISTINA Administration Sodium Chloride 10 ml 07/18/19 22:13 07/22/19 05:48 Sodium Chloride Flush Syringe 10 Ml IV 10 ml PRN PRN Administration LINE FLUSH
[2019-07-22] MEDS: METOPROLOL TARTRATE 50 MG TAB PO SCH ×2 (09:22→22:30)
[2019-07-22] MEDS: FAMOTIDINE 20 MG TAB PO SCH (09:22)
[2019-07-22] MEDS: ONDANSETRON 4 MG/2 ML INJ IV PRN (09:22)
[2019-07-22] MEDS: levoFLOXacin 750 MG TAB PO SCH (09:23)
--- NOTE | 2019-07-22 10:29 | Progress Note ---
Assessment and Plan S/p US guided right thoracentesis yesterday - total of 700mL removed. Per pulmonary - also recommend percutaneous needle biosy of right chest lesion Under CT guidance. Cont to hold IV lasix and ARB in setting of renal insufficiency. F/u BMP in AM. Nephrology following. Home Xarelto held pending pulmonary w/u. Cont full dosage lovenox BID, consider heparin gtt if renal indices worsen. May hold lovenox 12 hours prior to lung biopsy. The patient has been seen in conjunction with Dr. Elio Sotelo who agrees with the assessment and plan of care. - Patient Problems (1) Acute heart failure with preserved ejection fraction Current Visit: Yes Status: Acute (2) Lung mass Current Visit: Yes Status: Chronic (3) Severe pulmonary arterial systolic hypertension Current Visit: Yes Status: Chronic (4) Pleural effusion, right Current Visit: Yes Status: Acute (5) COPD (chronic obstructive pulmonary disease) Current Visit: Yes Status: Chronic Qualifiers: Emphysema type: unspecified (6) Acute on chronic respiratory failure Current Visit: Yes Status: Acute (7) Accelerated hypertension Current Visit: Yes Status: Acute (8) Atrial fibrillation Current Visit: Yes Status: Chronic (9) Anemia Current Visit: Yes Status: Acute (10) Tobacco use Current Visit: Yes Status: Chronic Subjective Date of service: 07/22/19 Principal diagnosis: Chf exacerbation,RUL mass,PNA Interval history: Pt resting in bed, no current complaints, on O2 via [place]. 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 Objective Last Vital Signs Temp 97.8 F 07/22/19 07:22 Pulse 82 07/22/19 09:22 Resp 20 07/22/19 07:31 BP 149/111 07/22/19 09:22 Pulse Ox 95 07/22/19 07:32 - Physical Examination General: No Apparent Distress HEENT: Positive: PERRL Neck: Positive: neck supple, trachea midline Cardiac: Positive: irregularly irregular, S1/S2 Lungs: Positive: Decreased Breath Sounds Neuro: Positive: Grossly Intact Abdomen: Negative: Tender Skin: Negative: Rash Musculoskeletal: No Pain Extremities: Present: +1 Edema (BLE) - Labs and Meds Coagulation 07/21/19 Range/Units 11:43 PT 17.3 H (12.2-14.9) Sec. INR 1.41 H (0.87-1.13) Comprehensive Metabolic Panel 07/21/19 07/22/19 Range/Units 17:06 07:45 Sodium 137 (137-145) mmol/L Potassium 4.5 4.1 (3.6-5.0) mmol/L Chloride 92.5 L (98-107) mmol/L Carbon Dioxide 30 (22-30) mmol/L BUN 41 H (7-17) mg/dL Creatinine 1.9 H (0.7-1.2) mg/dL Glucose 157 H (65-100) mg/dL Calcium 8.9 (8.4-10.2) mg/dL - Imaging and Cardiology EKG: report reviewed Echo: report reviewed - Allied health notes Allied health notes reviewed: nursing
--- NOTE | 2019-07-22 13:24 | Progress Note ---
Assessment and Plan Acute and chronic respiratory failure on home O2 at 3L/min RUL lung mass with pleural effusion- probable malignancy COPD Tobacco use disorder/Nicotine dependence- ongoing Morbid obesity Acute heart failure with preserved ejection fraction Atrial fibrillation Severe pulmonary arterial systolic hypertension Hyperkalemia Await CT guided biopsy and pleural fluid studies for further management decisions Stop furosemide with worsening renal function Continue all care as documented below Maintenance of sleep-wake cycle-avoid delirium, appears to have some confusion today -Supplemental oxygen to keep O2 sats 88-90% -ABG prn -Bronchodilators, nebulized steroids -CT guided biopsy of RUL mass, diagnostic/therapeutic thoracentesis( pending) -Send pleural fluid for studies including cytology -Stress ulcer prophylaxis while on high dose steroids -Antibiotics for AE-COPD, to complete 5 day course -Nicotine withdrawal precautions -Smoking cessation counselling -Steroids with taper in the next 24 hours -Chronic COPD medications -Heart failure measures per Cardiology -Avoid nephrotoxins, adjust all medications for GFR and CrCL -Medical management/ redistribution therapies of hyperkalemi Subjective Date of service: 07/22/19 Principal diagnosis: Chf exacerbation,RUL mass,PNA Interval history: F/up Acute and chronic respiratory failure; AE-COPD; RUL lung mass with right pleural effusion; tobacco use disorder Seen and examined. Nursing and respiratory staff consulted. No adverse overnight events reported. Vitals, labs, medications, chart and imaging reviewed. She is sitting up at the side of the bed, raspy voice. She has ongoing shortness of breath, denies any chest pain, no hemoptysis. Objective Vital Signs - 12hr 07/22/19 07/22/19 07/22/19 04:13 07:22 07:24 Temperature 98.5 F 97.8 F Pulse Rate 80 84 Pulse Rate [ Bilateral] Respiratory 20 20 Rate Respiratory Rate [Bilateral ] Blood Pressure 149/86 152/101 169/83 O2 Sat by Pulse 95 97 Oximetry 07/22/19 07/22/19 07/22/19 07:31 07:32 09:22 Temperature Pulse Rate 82 Pulse Rate [ 92 H Bilateral] Respiratory Rate Respiratory 20 Rate [Bilateral ] Blood Pressure 149/111 O2 Sat by Pulse 95 Oximetry Constitutional: no acute distress, alert, other (sitting up at the side of the bed) Eyes: non-icteric ENT: oropharynx moist Neck: supple, no lymphadenopathy, no JVD Effort: mildly labored Ascultation: Right: diminished breath sounds, Bilateral: wheezes (Rhonchi ) Cardiovascular: irregular rhythm, other (S1,S2, no murmurs) Gastrointestinal: normoactive bowel sounds, soft, non-tender Integumentary: normal Extremities: no cyanosis, edema Neurologic: normal mental status, non-focal exam, pupils equal and round, CN II- XII normal, motor strength normal and Psychiatric: mood appropriate, affect normal CBC and BMP: 07/25/19 03:38 07/25/19 03:38 ABG, PT/INR, D-dimer: PT/INR, D-dimer PT 17.3 Sec. (12.2-14.9) H 07/21/19 11:43 INR 1.41 (0.87-1.13) H 07/21/19 11:43 Abnormal lab findings: Abnormal Labs 07/18/19 07/18/19 07/19/19 17:56 17:56 03:31 WBC 2.9 L RBC 3.49 L Hgb 9.4 L 8.8 L Hct 28.8 L MCH 25 L 25 L RDW 25.0 H 24.5 H Lymph # Seg Neutrophils % Seg Neuts % (Manual) 87.0 H 83.0 H Lymphocytes % (Manual) 10.0 L Lymphocytes # (Manual) 0.5 L 0.5 L PT INR Sodium Potassium Chloride 96.2 L Carbon Dioxide BUN Creatinine Glucose 112 H Alkaline Phosphatase 149 H NT-Pro-B Natriuret Pep 3321 H Albumin 3.8 L 07/19/19 07/20/19 07/20/19 03:31 03:32 03:32 WBC RBC 3.54 L Hgb 8.9 L Hct 29.5 L MCH 25 L RDW 23.6 H Lymph # Seg Neutrophils % Seg Neuts % (Manual) Lymphocytes % (Manual) Lymphocytes # (Manual) PT INR Sodium Potassium 5.3 H D Chloride 96.3 L 96.0 L Carbon Dioxide 31 H BUN 24 H Creatinine 1.5 H Glucose 128 H 110 H Alkaline Phosphatase 148 H NT-Pro-B Natriuret Pep Albumin 07/21/19 07/21/19 07/21/19 04:20 04:20 11:43 WBC 3.2 L RBC Hgb 9.5 L Hct MCH 25 L RDW 23.6 H Lymph # 0.5 L Seg Neutrophils % 81.6 H Seg Neuts % (Manual) Lymphocytes % (Manual) Lymphocytes # (Manual) PT 17.3 H INR 1.41 H Sodium 136 L Potassium 5.6 H Chloride 94.5 L Carbon Dioxide BUN 32 H Creatinine 1.8 H Glucose 133 H Alkaline Phosphatase 138 H NT-Pro-B Natriuret Pep Albumin 3.6 L 07/22/19 07:45 WBC RBC Hgb Hct MCH RDW Lymph # Seg Neutrophils % Seg Neuts % (Manual) Lymphocytes % (Manual) Lymphocytes # (Manual) PT INR Sodium Potassium Chloride 92.5 L Carbon Dioxide BUN 41 H Creatinine 1.9 H Glucose 157 H Alkaline Phosphatase NT-Pro-B Natriuret Pep Albumin Allied health notes reviewed: nursing
[2019-07-22] MEDS: oxyCODONE /ACETAMINOPHEN 5-325MG TAB PO PRN (14:21)
[2019-07-22] MEDS ORDERED: HALOPERIDOL LACTATE 5 MG/1 ML INJ IM PRN (16:34)
[2019-07-22] MEDS ORDERED: methylPREDNISolone Sod Succinate 125 MG/2 ML INJ IV SCH (16:35)
--- NOTE | 2019-07-22 16:38 | Progress Note ---
Assessment and Plan Assessment and plan: The patient is a 68-year-old female present with a chief complaint of shortness of breath. Patient states she is had progressive shortness of breath over the past 3 weeks. Patient admits to 4 pillow orthopnea. Patient denies chest pain or fevers. Patient states she began to cough today and has been productive of white sputum. The patient states she is developed bilateral lower extremity edema over the past 3 weeks as well. Patient has a history of CHF and states she is on a "water pill." The patient was administered Lasix 40 mg IV by EMS prior to arrival. Day#2 Some improvement Day#3 Still SOB Day#2 SOB slightly better Day#[address] chest shows RUL mass Pulmonary consult Day 4 07/21/2019. Patient seen lying on her right side requesting for immediate thoracentesis due to shortness of breath. Discussed clinical care with the patient. Will hold Lasix as renal function is getting worse. Will obtain nephrology consultation. We will give a dose of Kayexalate. Will monitor renal function and potassium levels. Day 5 07/22/2019: Patient status post thoracentesis of 100 cc of fluid removed. Respiration improved. Renal function still tenuous. Discussed with inside steward/stewardess continue to hold IV Lasix acute kidney injury felt to be secondary to contrast-induced nephropathy. Xarelto still on hold as well waiting lung biopsy of right upper quadrant mass. - Patient Problems (1) CHF exacerbation Current Visit: Yes Status: Acute Qualifiers: Heart failure type: combined systolic and diastolic Qualified Code(s): I5 0.43 - Acute on chronic combined systolic (congestive) and diastolic (congestive) heart failure Plan to address problem: Daily weigts Strict I/o's ECHO for EF Hold Lasix Cardiology consult (2) Pleural effusion, right Current Visit: Yes Status: Acute Plan to address problem: Sec to CHF Some airspace disease Empiric IV Levaquin RUL mass Pulmonary consult (3) HTN (hypertension) Current Visit: Yes Status: Chronic Qualifiers: Hypertension type: essential hypertension Qualified Code(s): I10 - Essential (primary) hypertension Plan to address problem: COnt anihypertensives and adjust BP meds (4) COPD (chronic obstructive pulmonary disease) Current Visit: Yes Status: Chronic Qualifiers: Emphysema type: unspecified Plan to address problem: Duonebs prn (5) HLD (hyperlipidemia) Current Visit: Yes Status: Chronic Qualifiers: Hyperlipidemia type: mixed hyperlipidemia Qualified Code(s): E78.2 - Mixed hyperlipidemia Plan to address problem: Cont statins (6) acute kidney injury secondary to contrast nephropathy (7)DVT prophylaxis Current Visit: Yes Status: Acute Plan to address problem: On Heparin and GI prophylaxis (8) Discharge planning issues Current Visit: Yes Status: Acute Plan to address problem: Patient has a RUL mass PNA ans CHF exacerbation which needs workup History Interval history: Patient seen and examined this morning remains short of breath at rest but impr rogelio compared to yesterday. Also discussed with nursing staff reports that patient gets intermittently agitated and increases her blood pressure during this period. Hospitalist Physical - Physical exam Narrative exam: General appearance: Present: mild respiratory distress improved compared to yesterday, well-nourished - EENT Eyes: PERRL, EOM intact ENT: hearing intact, clear oral mucosa Ears: bilateral: normal - Neck Neck: supple, normal ROM - Respiratory Respiratory effort: normal Respiratory: bilateral: CTA, rales, rhonchi - Breasts Breasts: normal - Cardiovascular Heart rate: 78 Rhythm: regular Heart Sounds: Present: S1 & S2. Absent: gallop, rub Extremities: no ischemia, pulses intact, No edema, normal color, Full ROM - Gastrointestinal General gastrointestinal: Present: soft, non-tender, non-distended, normal bowel sounds - Genitourinary Female genitourinary: normal - Integumentary Integumentary: clear, warm, dry - Musculoskeletal Musculoskeletal: 1, strength equal bilaterally - Neurologic Neurologic: moves all extremities - Psychiatric Psychiatric: memory intact, appropriate mood/affect, intact judgment & insight - Allied health notes Allied health notes reviewed: nursing, case management - Constitutional Vitals: Temp Pulse Resp BP Pulse Ox 98.9 F 80 20 167/109 97 07/22/19 15:08 07/22/19 15:08 07/22/19 15:08 07/22/19 15:08 07/22/19 15:08 General appearance: Present: mild distress, well-nourished HEART Score - HEART Score EKG: Non-specific Age: > 65 Risk factors: > 3 risk factors or hx of atherosclerotic disease Troponin: Troponin T < 0.010 ng/mL (0.00-0.029) 07/18/19 17:56 - Critical Actions Critical Actions: 4-6 pts:12-16.6% risk of adverse cardiac event. Should be admitted Results - Labs CBC & Chem 7: 07/21/19 04:20 07/22/19 07:45 Labs: Laboratory Last Values WBC 3.2 K/mm3 (4.5-11.0) L 07/21/19 04:20 RBC 3.80 M/mm3 (3.65-5.03) 07/21/19 04:20 Hgb 9.5 gm/dl (10.1-14.3) L 07/21/19 04:20 Hct 31.6 % (30.3-42.9) 07/21/19 04:20 MCV 83 fl (79-97) 07/21/19 04:20 MCH 25 pg (28-32) L 07/21/19 04:20 MCHC 30 % (30-34) 07/21/19 04:20 RDW 23.6 % (13.2-15.2) H 07/21/19 04:20 Plt Count 180 K/mm3 (140-440) 07/21/19 04:20 Lymph % (Auto) 16.9 % (13.4-35.0) 07/21/19 04:20 [place] % (Auto) 1.4 % (0.0-7.3) 07/21/19 04:20 Eos % (Auto) 0.0 % (0.0-4.3) 07/21/19 04:20 Baso % (Auto) 0.1 % (0.0-1.8) 07/21/19 04:20 Lymph # 0.5 K/mm3 (1.2-5.4) L 07/21/19 04:20 Republic # 0.0 K/mm3 (0.0-0.8) 07/21/19 04:20 Eos # 0.0 K/mm3 (0.0-0.4) 07/21/19 04:20 Baso # 0.0 K/mm3 (0.0-0.1) 07/21/19 04:20 Add Manual Diff Complete 07/19/19 03:31 Total Counted 100 07/19/19 03:31 Seg Neutrophils % 81.6 % (40.0-70.0) H 07/21/19 04:20 Seg Neuts % (Manual) 83.0 % (40.0-70.0) H 07/19/19 03:31 Band Neutrophils % 0 % 07/19/19 03:31 Lymphocytes % (Manual) 16.0 % (13.4-35.0) 07/19/19 03:31 Reactive Lymphs % (Man) 0 % 07/19/19 03:31 Monocytes % (Manual) 1.0 % (0.0-7.3) 07/19/19 03:31 Eosinophils % (Manual) 0 % (0.0-4.3) 07/19/19 03:31 Basophils % (Manual) 0 % (0.0-1.8) 07/19/19 03:31 Metamyelocytes % 0 % 07/19/19 03:31 Myelocytes % 0 % 07/19/19 03:31 Promyelocytes % 0 % 07/19/19 03:31 Blast Cells % 0 % 07/19/19 03:31 Nucleated RBC % Not Reportable 07/19/19 03:31 Seg Neutrophils # 2.6 K/mm3 (1.8-7.7) 07/21/19 04:20 Seg Neutrophils # Man 2.4 K/mm3 (1.8-7.7) 07/19/19 03:31 Band Neutrophils # 0.0 K/mm3 07/19/19 03:31 Lymphocytes # (Manual) 0.5 K/mm3 (1.2-5.4) L 07/19/19 03:31 Abs React Lymphs (Man) 0.0 K/mm3 07/19/19 03:31 Monocytes # (Manual) 0.0 K/mm3 (0.0-0.8) 07/19/19 03:31 Eosinophils # (Manual) 0.0 K/mm3 (0.0-0.4) 07/19/19 03:31 Basophils # (Manual) 0.0 K/mm3 (0.0-0.1) 07/19/19 03:31 Metamyelocytes # 0.0 K/mm3 07/19/19 03:31 Myelocytes # 0.0 K/mm3 07/19/19 03:31 Promyelocytes # 0.0 K/mm3 07/19/19 03:31 Blast Cells # 0.0 K/mm3 07/19/19 03:31 WBC Morphology Not Reportable 07/19/19 03:31 Hypersegmented Neuts Not Reportable 07/19/19 03:31 Hyposegmented Neuts Not Reportable 07/19/19 03:31 Hypogranular Neuts Not Reportable 07/19/19 03:31 Smudge Cells Not Reportable 07/19/19 03:31 Toxic Granulation Not Reportable 07/19/19 03:31 Toxic Vacuolation Not Reportable 07/19/19 03:31 Dohle Bodies Not Reportable 07/19/19 03:31 Pelger-Huet Anomaly Not Reportable 07/19/19 03:31 Camilo Rods Not Reportable 07/19/19 03:31 Platelet Estimate Consistent w auto 07/19/19 03:31 Clumped Platelets Not Reportable 07/19/19 03:31 Plt Clumps, EDTA Not Reportable 07/19/19 03:31 Large Platelets Not Reportable 07/19/19 03:31 Giant Platelets Not Reportable 07/19/19 03:31 Platelet Satelliting Not Reportable 07/19/19 03:31 Plt Morphology Comment Not Reportable 07/19/19 03:31 RBC Morphology Not Reportable 07/19/19 03:31 Dimorphic RBCs Not Reportable 07/19/19 03:31 Polychromasia Not Reportable 07/19/19 03:31 Hypochromasia 1+ 07/19/19 03:31 Poikilocytosis Not Reportable 07/19/19 03:31 Anisocytosis 2+ 07/19/19 03:31 Microcytosis Few 07/19/19 03:31 Macrocytosis Few 07/19/19 03:31 Spherocytes Not Reportable 07/19/19 03:31 Pappenheimer Bodies Not Reportable 07/19/19 03:31 Sickle Cells Not Reportable 07/19/19 03:31 Target Cells Not Reportable 07/19/19 03:31 Tear Drop Cells Not Reportable 07/19/19 03:31 Ovalocytes Few 07/19/19 03:31 Helmet Cells Not Reportable 07/19/19 03:31 [place] Bodies Not Reportable 07/19/19 03:31 [place] Rings Not Reportable 07/19/19 03:31 [place] Cells Not Reportable 07/19/19 03:31 Bite Cells Not Reportable 07/19/19 03:31 Crenated Cell Not Reportable 07/19/19 03:31 Elliptocytes Not Reportable 07/19/19 03:31 Acanthocytes (Spur) Not Reportable 07/19/19 03:31 Rouleaux Not Reportable 07/19/19 03:31 Hemoglobin C Crystals Not Reportable 07/19/19 03:31 Schistocytes Rare 07/19/19 03:31 Malaria parasites Not Reportable 07/19/19 03:31 Colby Bodies Not Reportable 07/19/19 03:31 Hem Pathologist Commnt No 07/19/19 03:31 PT 17.3 Sec. (12.2-14.9) H 07/21/19 11:43 INR 1.41 (0.87-1.13) H 07/21/19 11:43 Sodium 137 mmol/L (137-145) 07/22/19 07:45 Potassium 4.1 mmol/L (3.6-5.0) 07/22/19 07:45 Chloride 92.5 mmol/L (98-107) L 07/22/19 07:45 Carbon Dioxide 30 mmol/L (22-30) 07/22/19 07:45 Anion Gap 19 mmol/L 07/22/19 07:45 BUN 41 mg/dL (7-17) H 07/22/19 07:45 Creatinine 1.9 mg/dL (0.7-1.2) H 07/22/19 07:45 Estimated GFR 32 ml/min 07/22/19 07:45 BUN/Creatinine Ratio 22 % 07/22/19 07:45 Glucose 157 mg/dL (65-100) H 07/22/19 07:45 Hemoglobin A1c 5.2 % (4-6) 07/19/19 03:31 Calcium 8.9 mg/dL (8.4-10.2) 07/22/19 07:45 Total Bilirubin 0.70 mg/dL (0.1-1.2) 07/21/19 04:20 AST 18 units/L (5-40) 07/21/19 04:20 ALT 15 units/L (7-56) 07/21/19 04:20 Alkaline Phosphatase 138 units/L (35-129) H 07/21/19 04:20 Total Creatine Kinase 67 units/L (30-135) 07/18/19 17:56 CK-MB (CK-2) 2.4 ng/mL (0.0-4.0) 07/18/19 17:56 CK-MB (CK-2) Rel Index 3.5 (0-4) 07/18/19 17:56 Troponin T < 0.010 ng/mL (0.00-0.029) 07/18/19 17:56 NT-Pro-B Natriuret Pep 3321 pg/mL (0-900) H 07/18/19 17:56 Total Protein 7.3 g/dL (6.3-8.2) 07/21/19 04:20 Albumin 3.6 g/dL (3.9-5) L 07/21/19 04:20 Albumin/Globulin Ratio 1.0 % 07/21/19 04:20 Fluid Type Pleural 07/21/19 14:45 Fluid Color Yellow 07/21/19 14:45 Fluid Appearance Hazy 07/21/19 14:45 Fluid WBC 443 /mm3 07/21/19 14:45 Fluid RBC 5250 /mm3 07/21/19 14:45 Fluid Seg Neutrophils 8.0 % 07/21/19 14:45 Fluid Lymphocytes 63.0 % 07/21/19 14:45 Fluid Reactive Lymphs 0 % 07/21/19 14:45 Fluid Monocytes 29.0 % 07/21/19 14:45 Fluid Eosinophils 0 % 07/21/19 14:45 Fluid Basophils 0 % 07/21/19 14:45 AFB Identification 07/21/19 14:45 - Diagnostic Impressions Diagnostic Impressions: Echocardiogram 07/18/19 22:35 Transthoracic Echocardiogram Indication: SOB BP: 154/91 HR: 92 Conclusions *The study is technically limited due to poor acoustic windows. *Mild concentric left ventricular hypertrophy is observed. *Global left ventricular systolic function is normal. *The estimated ejection fraction is 50-55%. *Abnormal left ventricular diastolic function is observed. *The left atrium is severely dilated. *The right ventricle is severely dilated. *There is mild aortic regurgitation. *There is evidence of severe pulmonary hypertension. Findings Procedure Info: The study quality is technically difficult. The study is technically limited due to poor acoustic windows. Left Ventricle: The left ventricular chamber size is normal. Mild concentric left ventricular hypertrophy is observed. Global left ventricular systolic function is normal. The estimated ejection fraction is 50-55%. Abnormal left ventricular diastolic function is observed. Abnormal left ventricular diastolic filling is observed, consistent with impaired relaxation. Left Atrium: The left atrium is severely dilated. Right Ventricle: The right ventricle is severely dilated. The right ventricular global systolic function is moderately reduced. Right Atrium: The right atrial cavity size is severely dilated. Aortic Valve: Mild aortic leaflet calcification is visualized. There is mild aortic regurgitation. Mitral Valve: There is mitral annular calcification. Mild mitral leaflet calcification is visualized. There is trace of mitral regurgitation. Tricuspid Valve: The tricuspid valve leaflets are normal. There is moderate to severe tricuspid regurgitation. The right ventricular systolic pressure is calculated at 72 mmHg. There is evidence of severe pulmonary hypertension. Pulmonic Valve: The pulmonic valve is not well visualized. The pulmonic valve appears normal. There is mild pulmonic regurgitation. Pericardium: A pericardial effusion is visualized. There is a minimial pericardial effusion. Aorta: The aorta appears normal. Venous: The inferior vena cava is dilated. There is no change in the dimension of the inferior vena cava with respiration consistent with markedly increased right atrial pressure. Measurements Chambers 2D Name Value Normal Range IVSd (2D) 1.27 cm (0.6 - 1.1) LVPWd (2D) 1.22 cm (0.6 - 1.1) LVIDd (2D) 4.71 cm (3.7 - 5.6) LVIDs (2D) 3.77 cm (2 - 3.8) LV FS (2D) 20.09 % - EF Teichholz (2D) 41.13 % - Ao root diameter (2D) 3.52 cm (2 - 3.7) Volumes/Mass Name Value Normal Range LA ESV SP 4CH (A/L) 107.42 ml - LA ESV SP 2CH (A/L) 135.51 ml - LA ESV BP (A/L) 128.25 ml - LA ESV BP (A/L) index 63.49 ml/m2 - LA ESV SP 4CH (MOD) 94.91 ml - LA ESV SP 2CH (MOD) 126.36 ml - LA ESV BP (MOD) 115.15 ml - LA ESV BP (MOD) index 57.01 ml/m2 - Diastolic/Systolic Function Name Value Normal Range MV E-wave Vmax 0.95 m/sec - MV deceleration time 148.19 msec - Aortic Valve Name Value Normal Range AV Vmax 1.53 m/sec - AV VTI 26.2 cm - AV peak gradient 9.37 mmHg - AV mean gradient 5.14 mmHg - LVOT diameter 2.34 cm - LVOT Vmax 1.03 m/sec - LVOT VTI 15.48 cm - LVOT peak gradient 4.28 mmHg - LVOT mean gradient 2.19 mmHg - SV LVOT 66.43 ml - JULIEN (continuity Vmax) 2.9 cm2 - JULIEN (continuity VTI) 2.54 cm2 - AR PHT 945.01 msec - AR peak gradient 78.01 mmHg - Ascending Ao 3.94 cm - Tricuspid Valve Name Value Normal Range TR Vmax 3.75 m/sec - TR peak gradient 56 mmHg - RAP 15 mmHg - RVSP 72 mmHg - IVC diameter 2.9 cm (1.2 - 2.3) Pulmonic Valve/Qp:Qs Name Value Normal Range PV Vmax 1.06 m/sec - PV peak gradient 4.52 mmHg - DC end-diastolic Vmax 2.29 m/sec - PV acceleration time 76.12 msec - Hopson/IV: Voiding Method Bedside Commode IV Catheter Type [Right INT / Saline Lock Forearm] IV Catheter Type [Left INT / Saline Lock Antecubital] Active Medications - Current Medications Current Medications: Generic Name Dose Route Start Last Admin Trade Name Freq PRN Reason Stop Dose Admin Acetaminophen 650 mg 07/18/19 22:13 07/19/19 22:00 Tylenol PO 650 mg Q4H PRN Administration Pain MILD(1-3)/Fever >100.5/KENDALL Albuterol/Ipratropium 1 ampul 07/21/19 14:00 07/22/19 13:11 Duoneb *Not For Prn Use* IH Not Given TIDRT CHRISTINA Arformoterol Tartrate 15 mcg 07/21/19 11:45 07/22/19 07:31 Brovana Nebu IH 15 mcg Q12HRT CHRISTINA Administration Budesonide 0.5 mg 07/21/19 11:45 07/22/19 07:31 Pulmicort IH 0.5 mg Q12HRT CHRISTINA Administration Famotidine 20 mg 07/22/19 10:00 07/22/19 09:22 Pepcid PO 20 mg DAILY CHRISTINA Administration Haloperidol Lactate 5 mg 07/22/19 16:34 Haldol IM Q6H PRN Agitation Levofloxacin 750 mg 07/22/19 10:00 07/22/19 09:23 Levaquin PO 07/28/19 10:01 750 mg Q48HR CHRISTINA Administration Methylprednisolone Sodium Succinate 40 mg 07/22/19 16:35 Solu-Medrol IV Q8HR CHRISTINA Metoclopramide HCl 10 mg 07/18/19 22:13 07/21/19 04:06 Reglan IV 10 mg Q6H PRN Administration Nausea And Vomiting Metoprolol Tartrate 50 mg 07/19/19 22:00 07/22/19 09:22 Metoprolol PO 50 mg BID CHRISTINA Administration Ondansetron HCl 4 mg 07/18/19 22:13 07/22/19 09:22 Zofran IV 4 mg Q8H PRN Administration Nausea And Vomiting Oxycodone/Acetaminophen 1 tab 07/18/19 22:13 07/22/19 14:21 Percocet 5/325 PO 1 tab Q6H PRN Administration Pain, Moderate (4-6) Sodium Chloride 10 ml 07/18/19 23:00 07/22/19 09:23 Sodium Chloride Flush Syringe 10 Ml IV 10 ml BID CHRISTINA Administration Sodium Chloride 10 ml 07/18/19 22:13 07/22/19 05:48 Sodium Chloride Flush Syringe 10 Ml IV 10 ml PRN PRN Administration LINE FLUSH
[2019-07-22] MEDS: methylPREDNISolone Sod Succinate 40 MG/1 ML INJ IV SCH (22:29)
[2019-07-23] MEDS ORDERED: hydrALAZINE 20 MG/1 ML INJ IV ONE (01:26)
[2019-07-23] MEDS: methylPREDNISolone Sod Succinate 40 MG/1 ML INJ IV SCH ×3 (05:39→21:18)
[2019-07-23 05:56] LABS: Hematocrit 29.9 % (30.3-42.9); Hemoglobin 9.2 gm/dl (10.1-14.3); Mean Corpuscular HGB Conc 31 % (30-34); Mean Corpuscular Volume 81 fl (79-97); Platelet Count 145 K/mm3 (140-440); Red Blood Count 3.71 M/mm3 (3.65-5.03)
[2019-07-23 06:11] LABS: Red Cell Distribution Width 22.8 % (13.2-15.2)
[2019-07-23 06:12] LABS: Albumin 3.7 g/dL (3.9-5); Calcium 9.3 mg/dL (8.4-10.2)
[2019-07-23] MEDS: BUDESONIDE 0.5 MG/2 ML NEBU IH SCH ×2 (08:06→20:58)
[2019-07-23] MEDS: ARFORMOTEROL 15 MCG/2 ML NEBU IH SCH ×2 (08:06→20:58)
[2019-07-23] MEDS: IPRATROPIUM/ALBUTEROL SULFATE 3 ML AMPUL.NEB IH SCH ×3 (08:07→20:58)
--- NOTE | 2019-07-23 08:36 | Progress Note ---
Assessment and Plan 1. Acute kidney injury: [place] in setting of contrast induced nephropathy. Urine studies ordered. Monitor renal function. Creatinine level 1.6 from 1.9 from 1.8 from 1.5. Avoid nephrotoxic agents. Meds dosage based on GFR. 2. FEN: Metabolic alkalosis, Diamox. Hyperkalemia, improved, monitor. LE edema, resume diuretics when appropriate. Monitor lytes and volume status. 3. Acute CHF, POA: Normal LVEF, followed by Cards. 4. Severe pulmonary arterial systolic hypertension. 5. Lung mass. 6. Acute on chronic hypoxic respiratory failure: Pulmonary following. 7. Right sided Pleural effusion: S/p thoracentesis. 8. Hypertension. 9. Atrial fibrillation. 10. Anemia. Objective: Patient was seen and examined at the bedside. Doing ok. Examination: General appearance: well-developed, appears stated age, obese, no distress HEENT: atraumatic Neck: neck supple, trachea midline Respiratory: Decreased Breath Sounds (bibasilar) Heart: regular, normal heart rate, S1S2, no murmur Gastrointestinal: obese, soft, bowel sounds present, not tender Integumentary: no rash, warm and dry Neurologic: AOX4 Ext: 1+ LE edema Subjective Date of service: 07/23/19 Principal diagnosis: Chf exacerbation,RUL mass,PNA Objective - Vital Signs Vital signs: Vital Signs - 12hr 07/22/19 07/22/19 07/22/19 21:16 22:00 23:47 Temperature 98.5 F Pulse Rate 86 Pulse Rate [ 88 Bilateral] Respiratory 20 Rate Respiratory 18 Rate [Bilateral ] Blood Pressure 171/98 O2 Sat by Pulse 97 99 Oximetry 07/23/19 07/23/19 07/23/19 03:00 04:02 07:27 Temperature 98.2 F Pulse Rate 86 89 78 Pulse Rate [ Bilateral] Respiratory 20 Rate Respiratory Rate [Bilateral ] Blood Pressure 165/98 175/103 O2 Sat by Pulse 96 100 Oximetry - Lab 07/23/19 05:19 07/23/19 05:19 Most recent lab results Calcium 9.3 mg/dL (8.4-10.2) 07/23/19 05:19 Medications & Allergies - Medications Allergies/Adverse Reactions: Allergies No Known Allergies Allergy (Verified 07/18/19 23:05) Home Medications: Home Medications Medication Instructions Recorded Confirmed Last Taken Type HYDROcodone/APAP 5-325 [[place] 1 each PO Q6HR PRN #12 tablet 12/17/18 07/19/19 Unknown Rx 5/325] Active Medications: Generic Name Dose Route Start Last Admin Trade Name Freq PRN Reason Stop Dose Admin Acetaminophen 650 mg 07/18/19 22:13 07/19/19 22:00 Tylenol PO 650 mg Q4H PRN Administration Pain MILD(1-3)/Fever >100.5/KENDALL Albuterol/Ipratropium 1 ampul 07/21/19 14:00 07/23/19 08:07 Duoneb *Not For Prn Use* IH 1 ampul TIDRT CHRISTINA Administration Arformoterol Tartrate 15 mcg 07/21/19 11:45 07/23/19 08:06 Brovana Nebu IH 15 mcg Q12HRT CHRISTINA Administration Budesonide 0.5 mg 07/21/19 11:45 07/23/19 08:06 Pulmicort IH 0.5 mg Q12HRT CHRISTINA Administration Famotidine 20 mg 07/22/19 10:00 07/22/19 09:22 Pepcid PO 20 mg DAILY CHRISTINA Administration Haloperidol Lactate 5 mg 07/22/19 16:34 Haldol IM Q6H PRN Agitation Levofloxacin 750 mg 07/22/19 10:00 07/22/19 09:23 Levaquin PO 07/28/19 10:01 750 mg Q48HR CHRISTINA Administration Methylprednisolone Sodium Succinate 40 mg 07/22/19 22:00 07/23/19 05:39 Solu-Medrol IV 40 mg Q8HR CHRISTINA Administration Metoclopramide HCl 10 mg 07/18/19 22:13 07/21/19 04:06 Reglan IV 10 mg Q6H PRN Administration Nausea And Vomiting Metoprolol Tartrate 50 mg 07/19/19 22:00 07/22/19 22:30 Metoprolol PO 50 mg BID CHRISTINA Administration Ondansetron HCl 4 mg 07/18/19 22:13 07/22/19 09:22 Zofran IV 4 mg Q8H PRN Administration Nausea And Vomiting Oxycodone/Acetaminophen 1 tab 07/18/19 22:13 07/22/19 14:21 Percocet 5/325 PO 1 tab Q6H PRN Administration Pain, Moderate (4-6) Sodium Chloride 10 ml 07/18/19 23:00 07/22/19 22:29 Sodium Chloride Flush Syringe 10 Ml IV 10 ml BID CHRISTINA Administration Sodium Chloride 10 ml 07/18/19 22:13 07/22/19 05:48 Sodium Chloride Flush Syringe 10 Ml IV 10 ml PRN PRN Administration LINE FLUSH
--- NOTE | 2019-07-23 09:57 | Progress Note ---
Assessment and Plan Diuretics are being held in view of renal insufficiency may need Lasix 40 mg once a day patient is awaiting thoracentesis with lung biopsy. Is on rate control medication beta-samara is on psych one-to-one for mental status evaluation - Patient Problems (1) Acute heart failure with preserved ejection fraction Current Visit: Yes Status: Acute (2) Acute on chronic respiratory failure Current Visit: Yes Status: Acute (3) Atrial fibrillation Current Visit: Yes Status: Chronic (4) COPD (chronic obstructive pulmonary disease) Current Visit: Yes Status: Chronic Qualifiers: Emphysema type: unspecified (5) HLD (hyperlipidemia) Current Visit: Yes Status: Chronic Qualifiers: Hyperlipidemia type: mixed hyperlipidemia Qualified Code(s): E78.2 - Mixed hyperlipidemia (6) HTN (hypertension) Current Visit: Yes Status: Chronic Qualifiers: Hypertension type: essential hypertension Qualified Code(s): I10 - Essential (primary) hypertension (7) Lung mass Current Visit: Yes Status: Chronic (8) Severe pulmonary arterial systolic hypertension Current Visit: Yes Status: Chronic (9) Tobacco use Current Visit: Yes Status: Chronic Subjective Date of service: 07/23/19 Principal diagnosis: Chf exacerbation,RUL mass,PNA Interval history: Patient laying on bed is on one-to-one, shortness of breath has improved Objective Vital Signs Temp Pulse Pulse Resp Resp BP BP 07/23/19 09:54 07/23/19 08:00 77 18 07/23/19 07:27 78 175/103 07/23/19 04:02 98.2 F 89 20 165/98 07/23/19 03:00 86 07/22/19 23:47 98.5 F 86 20 171/98 07/22/19 22:00 07/22/19 21:16 88 18 07/22/19 20:00 98.3 F 78 20 167/102 07/22/19 19:45 78 07/22/19 15:08 98.9 F 80 20 167/109 07/22/19 11:47 98.0 F 87 18 171/106 Pulse Ox 07/23/19 09:54 99 07/23/19 08:00 07/23/19 07:27 100 07/23/19 04:02 96 07/23/19 03:00 07/22/19 23:47 99 07/22/19 22:00 97 07/22/19 21:16 07/22/19 20:00 94 07/22/19 19:45 07/22/19 15:08 97 07/22/19 11:47 99 - Physical Examination General: No Apparent Distress HEENT: Positive: PERRL Neck: Positive: neck supple, trachea midline Cardiac: Positive: Reg Rate and Rhythm Lungs: Positive: Decreased Breath Sounds Neuro: Positive: Grossly Intact Abdomen: Negative: Tender Skin: Negative: Rash Musculoskeletal: No Pain Extremities: Present: +1 Edema (BLE) - Labs and Meds Cardiac Enzymes 07/23/19 Range/Units 05:19 AST 12 (5-40) units/L CBC 07/23/19 Range/Units 05:19 WBC 2.2 L (4.5-11.0) K/mm3 RBC 3.71 (3.65-5.03) M/mm3 Hgb 9.2 L (10.1-14.3) gm/dl Hct 29.9 L (30.3-42.9) % Plt Count 145 (140-440) K/mm3 Comprehensive Metabolic Panel 07/23/19 Range/Units 05:19 Sodium 135 L (137-145) mmol/L Potassium 4.2 (3.6-5.0) mmol/L Chloride 91.1 L (98-107) mmol/L Carbon Dioxide 31 H (22-30) mmol/L BUN 41 H (7-17) mg/dL Creatinine 1.6 H (0.7-1.2) mg/dL Glucose 176 H (65-100) mg/dL Calcium 9.3 (8.4-10.2) mg/dL AST 12 (5-40) units/L ALT 16 (7-56) units/L Alkaline Phosphatase 126 (35-129) units/L Total Protein 6.9 (6.3-8.2) g/dL Albumin 3.7 L (3.9-5) g/dL - Imaging and Cardiology EKG: report reviewed Echo: report reviewed (Normal LV function severe pulmonary hypertension) Holter: report reviewed - Telemetry EKG Rhythm: Atrial Fibrillation - Allied health notes Allied health notes reviewed: nursing
[2019-07-23] MEDS: FAMOTIDINE 20 MG TAB PO SCH (11:11)
[2019-07-23] MEDS: METOPROLOL TARTRATE 50 MG TAB PO SCH ×2 (11:11→21:18)
--- NOTE | 2019-07-23 11:21 | Progress Note ---
Assessment and Plan Assessment and plan: The patient is a 68-year-old female present with a chief complaint of shortness of breath. Patient states she is had progressive shortness of breath over the past 3 weeks. Patient admits to 4 pillow orthopnea. Patient denies chest pain or fevers. Patient states she began to cough today and has been productive of white sputum. The patient states she is developed bilateral lower extremity edema over the past 3 weeks as well. Patient has a history of CHF and states she is on a "water pill." The patient was administered Lasix 40 mg IV by EMS prior to arrival. Day#2 Some improvement Day#3 Still SOB Day#2 SOB slightly better Day#[address] chest shows RUL mass Pulmonary consult Day 4 07/21/2019. Patient seen lying on her right side requesting for immediate thoracentesis due to shortness of breath. Discussed clinical care with the patient. Will hold Lasix as renal function is getting worse. Will obtain nephrology consultation. We will give a dose of Kayexalate. Will monitor renal function and potassium levels. Day 5 07/22/2019: Patient status post thoracentesis of 700 cc of fluid removed. Respiration improved. Renal function still tenuous. Discussed with aquatics specialist continue to hold IV Lasix acute kidney injury felt to be secondary to contrast-induced nephropathy. Xarelto still on hold as well waiting lung biopsy of right upper quadrant mass. Day 6: Patient renal function improving. Awaiting lung biopsy. She is status post 700 cc of fluid removed via thoracentesis. Also awaiting evaluation of the fluid analysis. Monitor Leukopenia. Will obtain a CT of the head. Spoke to sitter and also to the nurse, she will have the patient had a fall despite having a sitter. We will continue to monitor. May need restraints. - Patient Problems (1) CHF exacerbation Current Visit: Yes Status: Acute Qualifiers: Heart failure type: combined systolic and diastolic Qualified Code(s): I50.43 - Acute on chronic combined systolic (congestive) and diastolic (congestive) heart failure Plan to address problem: Daily weigts Strict I/o's ECHO for EF Hold Lasix Cardiology consult (2) Pleural effusion, right Current Visit: Yes Status: Acute Plan to address problem: Sec to CHF Some airspace disease Empiric IV Levaquin RUL mass Pulmonary consult (3) HTN (hypertension) Current Visit: Yes Status: Chronic Qualifiers: Hypertension type: essential hypertension Qualified Code(s): I10 - Essential (primary) hypertension Plan to address problem: COnt anihypertensives and adjust BP meds (4) COPD (chronic obstructive pulmonary disease) Current Visit: Yes Status: Chronic Qualifiers: Emphysema type: unspecified Plan to address problem: Duonebs prn (5) HLD (hyperlipidemia) Current Visit: Yes Status: Chronic Qualifiers: Hyperlipidemia type: mixed hyperlipidemia Qualified Code(s): E78.2 - Mixed hyperlipidemia Plan to address problem: Cont statins (6) acute kidney injury secondary to contrast nephropathy Improving some (7)DVT prophylaxis Current Visit: Yes Status: Acute Plan to address problem: On Heparin and GI prophylaxis (8) Discharge planning issues Current Visit: Yes Status: Acute Plan to address problem: Patient has a RUL mass PNA ans CHF exacerbation which needs workup History Interval history: Patient seen and examined while shortness of breath is improved patient with altered mental status repeatedly walking out of the room despite having a sitter in place. Hospitalist Physical - Physical exam Narrative exam: General appearance: Present: mild respiratory distress improved compared to yesterday, well-nourished Although altered more today than yesterday. - EENT Eyes: PERRL, EOM intact ENT: hearing intact, clear oral mucosa Ears: bilateral: normal - Neck Neck: supple, normal ROM - Respiratory Respiratory effort: normal Respiratory: bilateral: CTA, rales, rhonchi - Breasts Breasts: normal - Cardiovascular Heart rate: 78 Rhythm: regular Heart Sounds: Present: S1 & S2. Absent: gallop, rub Extremities: no ischemia, pulses intact, No edema, normal color, Full ROM - Gastrointestinal General gastrointestinal: Present: soft, non-tender, non-distended, normal bowel sounds - Genitourinary Female genitourinary: normal - Integumentary Integumentary: clear, warm, dry - Musculoskeletal Musculoskeletal: 1, strength equal bilaterally - Neurologic Neurologic: moves all extremities - Psychiatric Psychiatric: memory intact, appropriate mood/affect, intact judgment & insight - Allied health notes Allied health notes reviewed: nursing, case management - Constitutional Vitals: Temp Pulse Resp BP Pulse Ox 98.2 F 78 18 175/103 99 07/23/19 04:02 07/23/19 11:11 07/23/19 08:00 07/23/19 11:11 07/23/19 09:54 General appearance: Present: mild distress, well-nourished HEART Score - HEART Score EKG: Non-specific Age: > 65 Risk factors: > 3 risk factors or hx of atherosclerotic disease Troponin: Troponin T < 0.010 ng/mL (0.00-0.029) 07/18/19 17:56 - Critical Actions Critical Actions: 4-6 pts:12-16.6% risk of adverse cardiac event. Should be admitted Results - Labs CBC & Chem 7: 07/23/19 05:19 07/24/19 07:33 Labs: Laboratory Last Values WBC 2.2 K/mm3 (4.5-11.0) L 07/23/19 05:19 RBC 3.71 M/mm3 (3.65-5.03) 07/23/19 05:19 Hgb 9.2 gm/dl (10.1-14.3) L 07/23/19 05:19 Hct 29.9 % (30.3-42.9) L 07/23/19 05:19 MCV 81 fl (79-97) 07/23/19 05:19 MCH 25 pg (28-32) L 07/23/19 05:19 MCHC 31 % (30-34) 07/23/19 05:19 RDW 22.8 % (13.2-15.2) H 07/23/19 05:19 Plt Count 145 K/mm3 (140-440) 07/23/19 05:19 Lymph % (Auto) 16.9 % (13.4-35.0) 07/21/19 04:20 [place] % (Auto) 1.4 % (0.0-7.3) 07/21/19 04:20 Eos % (Auto) 0.0 % (0.0-4.3) 07/21/19 04:20 Baso % (Auto) 0.1 % (0.0-1.8) 07/21/19 04:20 Lymph # 0.5 K/mm3 (1.2-5.4) L 07/21/19 04:20 [place] # 0.0 K/mm3 (0.0-0.8) 07/21/19 04:20 Eos # 0.0 K/mm3 (0.0-0.4) 07/21/19 04:20 Baso # 0.0 K/mm3 (0.0-0.1) 07/21/19 04:20 Add Manual Diff Complete 07/19/19 03:31 Total Counted 100 07/19/19 03:31 Seg Neutrophils % 81.6 % (40.0-70.0) H 07/21/19 04:20 Seg Neuts % (Manual) 83.0 % (40.0-70.0) H 07/19/19 03:31 Band Neutrophils % 0 % 07/19/19 03:31 Lymphocytes % (Manual) 16.0 % (13.4-35.0) 07/19/19 03:31 Reactive Lymphs % (Man) 0 % 07/19/19 03:31 Monocytes % (Manual) 1.0 % (0.0-7.3) 07/19/19 03:31 Eosinophils % (Manual) 0 % (0.0-4.3) 07/19/19 03:31 Basophils % (Manual) 0 % (0.0-1.8) 07/19/19 03:31 Metamyelocytes % 0 % 07/19/19 03:31 Myelocytes % 0 % 07/19/19 03:31 Promyelocytes % 0 % 07/19/19 03:31 Blast Cells % 0 % 07/19/19 03:31 Nucleated RBC % Not Reportable 07/19/19 03:31 Seg Neutrophils # 2.6 K/mm3 (1.8-7.7) 07/21/19 04:20 Seg Neutrophils # Man 2.4 K/mm3 (1.8-7.7) 07/19/19 03:31 Band Neutrophils # 0.0 K/mm3 07/19/19 03:31 Lymphocytes # (Manual) 0.5 K/mm3 (1.2-5.4) L 07/19/19 03:31 Abs React Lymphs (Man) 0.0 K/mm3 07/19/19 03:31 Monocytes # (Manual) 0.0 K/mm3 (0.0-0.8) 07/19/19 03:31 Eosinophils # (Manual) 0.0 K/mm3 (0.0-0.4) 07/19/19 03:31 Basophils # (Manual) 0.0 K/mm3 (0.0-0.1) 07/19/19 03:31 Metamyelocytes # 0.0 K/mm3 07/19/19 03:31 Myelocytes # 0.0 K/mm3 07/19/19 03:31 Promyelocytes # 0.0 K/mm3 07/19/19 03:31 Blast Cells # 0.0 K/mm3 07/19/19 03:31 WBC Morphology Not Reportable 07/19/19 03:31 Hypersegmented Neuts Not Reportable 07/19/19 03:31 Hyposegmented Neuts Not Reportable 07/19/19 03:31 Hypogranular Neuts Not Reportable 07/19/19 03:31 Smudge Cells Not Reportable 07/19/19 03:31 Toxic Granulation Not Reportable 07/19/19 03:31 Toxic Vacuolation Not Reportable 07/19/19 03:31 Dohle Bodies Not Reportable 07/19/19 03:31 Pelger-Huet Anomaly Not Reportable 07/19/19 03:31 Camilo Rods Not Reportable 07/19/19 03:31 Platelet Estimate Consistent w auto 07/19/19 03:31 Clumped Platelets Not Reportable 07/19/19 03:31 Plt Clumps, EDTA Not Reportable 07/19/19 03:31 Large Platelets Not Reportable 07/19/19 03:31 Giant Platelets Not Reportable 07/19/19 03:31 Platelet Satelliting Not Reportable 07/19/19 03:31 Plt Morphology Comment Not Reportable 07/19/19 03:31 RBC Morphology Not Reportable 07/19/19 03:31 Dimorphic RBCs Not Reportable 07/19/19 03:31 Polychromasia Not Reportable 07/19/19 03:31 Hypochromasia 1+ 07/19/19 03:31 Poikilocytosis Not Reportable 07/19/19 03:31 Anisocytosis 2+ 07/19/19 03:31 Microcytosis Few 07/19/19 03:31 Macrocytosis Few 07/19/19 03:31 Spherocytes Not Reportable 07/19/19 03:31 Pappenheimer Bodies Not Reportable 07/19/19 03:31 Sickle Cells Not Reportable 07/19/19 03:31 Target Cells Not Reportable 07/19/19 03:31 Tear Drop Cells Not Reportable 07/19/19 03:31 Ovalocytes Few 07/19/19 03:31 Helmet Cells Not Reportable 07/19/19 03:31 [place] Bodies Not Reportable 07/19/19 03:31 [place] Rings Not Reportable 07/19/19 03:31 [place] Cells Not Reportable 07/19/19 03:31 Bite Cells Not Reportable 07/19/19 03:31 Crenated Cell Not Reportable 07/19/19 03:31 Elliptocytes Not Reportable 07/19/19 03:31 Acanthocytes (Spur) Not Reportable 07/19/19 03:31 Rouleaux Not Reportable 07/19/19 03:31 Hemoglobin C Crystals Not Reportable 07/19/19 03:31 Schistocytes Rare 07/19/19 03:31 Malaria parasites Not Reportable 07/19/19 03:31 [place] Bodies Not Reportable 07/19/19 03:31 Hem Pathologist Commnt No 07/19/19 03:31 PT 17.3 Sec. (12.2-14.9) H 07/21/19 11:43 INR 1.41 (0.87-1.13) H 07/21/19 11:43 Sodium 135 mmol/L (137-145) L 07/23/19 05:19 Potassium 4.2 mmol/L (3.6-5.0) 07/23/19 05:19 Chloride 91.1 mmol/L (98-107) L 07/23/19 05:19 Carbon Dioxide 31 mmol/L (22-30) H 07/23/19 05:19 Anion Gap 17 mmol/L 07/23/19 05:19 BUN 41 mg/dL (7-17) H 07/23/19 05:19 Creatinine 1.6 mg/dL (0.7-1.2) H 07/23/19 05:19 Estimated GFR 39 ml/min 07/23/19 05:19 BUN/Creatinine Ratio 26 % 07/23/19 05:19 Glucose 176 mg/dL (65-100) H 07/23/19 05:19 Hemoglobin A1c 5.2 % (4-6) 07/19/19 03:31 Calcium 9.3 mg/dL (8.4-10.2) 07/23/19 05:19 Total Bilirubin 0.70 mg/dL (0.1-1.2) 07/23/19 05:19 AST 12 units/L (5-40) 07/23/19 05:19 ALT 16 units/L (7-56) 07/23/19 05:19 Alkaline Phosphatase 126 units/L (35-129) 07/23/19 05:19 Total Creatine Kinase 67 units/L (30-135) 07/18/19 17:56 CK-MB (CK-2) 2.4 ng/mL (0.0-4.0) 07/18/19 17:56 CK-MB (CK-2) Rel Index 3.5 (0-4) 07/18/19 17:56 Troponin T < 0.010 ng/mL (0.00-0.029) 07/18/19 17:56 NT-Pro-B Natriuret Pep 3321 pg/mL (0-900) H 07/18/19 17:56 Total Protein 6.9 g/dL (6.3-8.2) 07/23/19 05:19 Albumin 3.7 g/dL (3.9-5) L 07/23/19 05:19 Albumin/Globulin Ratio 1.2 % 07/23/19 05:19 Fluid Type Pleural 07/21/19 14:45 Fluid Color Yellow 07/21/19 14:45 Fluid Appearance Hazy 07/21/19 14:45 Fluid WBC 443 /mm3 07/21/19 14:45 Fluid RBC 5250 /mm3 07/21/19 14:45 Fluid Seg Neutrophils 8.0 % 07/21/19 14:45 Fluid Lymphocytes 63.0 % 07/21/19 14:45 Fluid Reactive Lymphs 0 % 07/21/19 14:45 Fluid Monocytes 29.0 % 07/21/19 14:45 Fluid Eosinophils 0 % 07/21/19 14:45 Fluid Basophils 0 % 07/21/19 14:45 AFB Identification 07/21/19 14:45 - Diagnostic Impressions Diagnostic Impressions: Echocardiogram 07/18/19 22:35 Transthoracic Echocardiogram Indication: SOB BP: 154/91 HR: 92 Conclusions *The study is technically limited due to poor acoustic windows. *Mild concentric left ventricular hypertrophy is observed. *Global left ventricular systolic function is normal. *The estimated ejection fraction is 50-55%. *Abnormal left ventricular diastolic function is observed. *The left atrium is severely dilated. *The right ventricle is severely dilated. *There is mild aortic regurgitation. *There is evidence of severe pulmonary hypertension. Findings Procedure Info: The study quality is technically difficult. The study is technically limited due to poor acoustic windows. Left Ventricle: The left ventricular chamber size is normal. Mild concentric left ventricular hypertrophy is observed. Global left ventricular systolic function is normal. The estimated ejection fraction is 50-55%. Abnormal left ventricular diastolic function is observed. Abnormal left ventricular diastolic filling is observed, consistent with impaired relaxation. Left Atrium: The left atrium is severely dilated. Right Ventricle: The right ventricle is severely dilated. The right ventricular global systolic function is moderately reduced. Right Atrium: The right atrial cavity size is severely dilated. Aortic Valve: Mild aortic leaflet calcification is visualized. There is mild aortic regurgitation. Mitral Valve: There is mitral annular calcification. Mild mitral leaflet calcification is visualized. There is trace of mitral regurgitation. Tricuspid Valve: The tricuspid valve leaflets are normal. There is moderate to severe tricuspid regurgitation. The right ventricular systolic pressure is calculated at 72 mmHg. There is evidence of severe pulmonary hypertension. Pulmonic Valve: The pulmonic valve is not well visualized. The pulmonic valve appears normal. There is mild pulmonic regurgitation. Pericardium: A pericardial effusion is visualized. There is a minimial pericardial effusion. Aorta: The aorta appears normal. Venous: The inferior vena cava is dilated. There is no change in the dimension of the inferior vena cava with respiration consistent with markedly increased right atrial pressure. Measurements Chambers 2D Name Value Normal Range IVSd (2D) 1.27 cm (0.6 - 1.1) LVPWd (2D) 1.22 cm (0.6 - 1.1) LVIDd (2D) 4.71 cm (3.7 - 5.6) LVIDs (2D) 3.77 cm (2 - 3.8) LV FS (2D) 20.09 % - EF Teichholz (2D) 41.13 % - Ao root diameter (2D) 3.52 cm (2 - 3.7) Volumes/Mass Name Value Normal Range LA ESV SP 4CH (A/L) 107.42 ml - LA ESV SP 2CH (A/L) 135.51 ml - LA ESV BP (A/L) 128.25 ml - LA ESV BP (A/L) index 63.49 ml/m2 - LA ESV SP 4CH (MOD) 94.91 ml - LA ESV SP 2CH (MOD) 126.36 ml - LA ESV BP (MOD) 115.15 ml - LA ESV BP (MOD) index 57.01 ml/m2 - Diastolic/Systolic Function Name Value Normal Range MV E-wave Vmax 0.95 m/sec - MV deceleration time 148.19 msec - Aortic Valve Name Value Normal Range AV Vmax 1.53 m/sec - AV VTI 26.2 cm - AV peak gradient 9.37 mmHg - AV mean gradient 5.14 mmHg - LVOT diameter 2.34 cm - LVOT Vmax 1.03 m/sec - LVOT VTI 15.48 cm - LVOT peak gradient 4.28 mmHg - LVOT mean gradient 2.19 mmHg - SV LVOT 66.43 ml - JULIEN (continuity Vmax) 2.9 cm2 - JULINE (continuity VTI) 2.54 cm2 - AR PHT 945.01 msec - AR peak gradient 78.01 mmHg - Ascending Ao 3.94 cm - Tricuspid Valve Name Value Normal Range TR Vmax 3.75 m/sec - TR peak gradient 56 mmHg - RAP 15 mmHg - RVSP 72 mmHg - IVC diameter 2.9 cm (1.2 - 2.3) Pulmonic Valve/Qp:Qs Name Value Normal Range PV Vmax 1.06 m/sec - PV peak gradient 4.52 mmHg - CA end-diastolic Vmax 2.29 m/sec - PV acceleration time 76.12 msec - [place]/IV: Voiding Method Indwelling Catheter IV Catheter Type [Right INT / Saline Lock Forearm] IV Catheter Type [Left INT / Saline Lock Antecubital] Active Medications - Current Medications Current Medications: Generic Name Dose Route Start Last Admin Trade Name Freq PRN Reason Stop Dose Admin Acetaminophen 650 mg 07/18/19 22:13 07/19/19 22:00 Tylenol PO 650 mg Q4H PRN Administration Pain MILD(1-3)/Fever >100.5/KENDALL Albuterol/Ipratropium 1 ampul 07/21/19 14:00 07/23/19 08:07 Duoneb *Not For Prn Use* IH 1 ampul TIDRT CHRISTINA Administration Arformoterol Tartrate 15 mcg 07/21/19 11:45 07/23/19 08:06 Brovana Nebu IH 15 mcg Q12HRT CHRISTINA Administration Budesonide 0.5 mg 07/21/19 11:45 07/23/19 08:06 Pulmicort IH 0.5 mg Q12HRT CHRISTINA Administration Famotidine 20 mg 07/22/19 10:00 07/23/19 11:11 Pepcid PO 20 mg DAILY CHRISTINA Administration Haloperidol Lactate 5 mg 07/22/19 16:34 07/23/19 11:10 Haldol IM 5 mg Q6H PRN Administration Agitation Levofloxacin 750 mg 07/22/19 10:00 07/22/19 09:23 Levaquin PO 07/28/19 10:01 750 mg Q48HR CHRISTINA Administration Methylprednisolone Sodium Succinate 40 mg 07/22/19 22:00 07/23/19 05:39 Solu-Medrol IV 40 mg Q8HR CHRISTINA Administration Metoclopramide HCl 10 mg 07/18/19 22:13 07/21/19 04:06 Reglan IV 10 mg Q6H PRN Administration Nausea And Vomiting Metoprolol Tartrate 50 mg 07/19/19 22:00 07/23/19 11:11 Metoprolol PO 50 mg BID CHRISTINA Administration Ondansetron HCl 4 mg 07/18/19 22:13 07/22/19 09:22 Zofran IV 4 mg Q8H PRN Administration Nausea And Vomiting Oxycodone/Acetaminophen 1 tab 07/18/19 22:13 07/22/19 14:21 Percocet 5/325 PO 1 tab Q6H PRN Administration Pain, Moderate (4-6) Sodium Chloride 10 ml 07/18/19 23:00 07/23/19 11:12 Sodium Chloride Flush Syringe 10 Ml IV 10 ml BID CHRISTINA Administration Sodium Chloride 10 ml 07/18/19 22:13 07/22/19 05:48 Sodium Chloride Flush Syringe 10 Ml IV 10 ml PRN PRN Administration LINE FLUSH
--- NOTE | 2019-07-23 11:28 | Progress Note ---
Assessment and Plan Acute and chronic respiratory failure on home O2 at 3L/min RUL lung mass Pleural effusion AE-COPD Tobacco use disorder/Nicotine dependence Morbid obesity Acute heart failure with preserved ejection fraction Atrial fibrillation Severe pulmonary arterial systolic hypertension Hyperkalemia - follow pleural fluid cytology - prn antipsychotics's - continue supplemental oxygen to keep O2 sats 88-90% - ABG - Bronchodilators, nebulized steroids - CT guided biopsy of RUL mass, diagnostic/therapeutic thoracentesis. - Send pleural fluid for studies including cytology - Stop Enoxaparin for procedure, can resume post procedure - Stress ulcer prophylaxis while on high dose steroids - Antibiotics for AE-COPD, to complete 5 day course - Nicotine withdrawal precautions - Smoking cessation counselling - Steroids with taper in the next 48 hours - Chronic COPD medications - Heart failure measures per Cardiology - Avoid nephrotoxins, adjust all medications for GFR and CrCL - Medical management/ redistribution therapies of hyperkalemia- defer primary service. Await CT guided biopsy and pleural fluid studies for further management decisions All other care per Attending and other consultants ... re-evaluate in am & prn Subjective Date of service: 07/23/19 Principal diagnosis: Ac and ch hypoxemic resp failure; lung mass; Pleural effusion; COPD; HFpEF Interval history: Patient is seen today for: Ac and ch hypoxemic resp failure; R lung mass; Pleural effusion; AE-COPD; Tobacco use disorder/Nicotine dependence; Morbid obesity; HFpEF; Atrial fibrillation; Severe pulmonary arterial systolic hypertension; Hyperkalemia Seen and examined at bedside; 24hour events reviewed; nursing and respiratory care staff consulted; no adverse overnight events reported to me; resting peacefully in bed; intermittently agitated / delirious; denies acute chest pains; remains on supplemental oxygen Objective Vital Signs - 12hr 07/22/19 07/23/19 07/23/19 23:47 03:00 04:02 Temperature 98.5 F 98.2 F Pulse Rate 86 86 89 Pulse Rate [ Bilateral] Respiratory 20 20 Rate Respiratory Rate [Bilateral ] Blood Pressure 171/98 165/98 O2 Sat by Pulse 99 96 Oximetry 07/23/19 07/23/19 07/23/19 07:27 08:00 09:54 Temperature Pulse Rate 78 Pulse Rate [ 77 Bilateral] Respiratory Rate Respiratory 18 Rate [Bilateral ] Blood Pressure 175/103 O2 Sat by Pulse 100 99 Oximetry 07/23/19 11:11 Temperature Pulse Rate 78 Pulse Rate [ Bilateral] Respiratory Rate Respiratory Rate [Bilateral ] Blood Pressure 175/103 O2 Sat by Pulse Oximetry Constitutional: no acute distress, alert, other (sitting up at the side of the bed) Eyes: non-icteric ENT: oropharynx moist, other (mallampati 3) Neck: supple, no lymphadenopathy, no JVD Effort: mildly labored Ascultation: Right: diminished breath sounds, Bilateral: wheezes (Rhonchi ) Percussion: Right: dull (base) Cardiovascular: irregular rhythm, other (S1,S2, no murmurs) Gastrointestinal: normoactive bowel sounds, soft, non-tender, non-distended Integumentary: normal Extremities: no cyanosis, pulses normal, no ischemia or petechiae, edema (1+) Neurologic: normal mental status, non-focal exam, pupils equal and round, CN II- XII normal, motor strength normal and Psychiatric: other (delirium. mild) CBC and BMP: 07/23/19 05:19 07/24/19 07:33 ABG, PT/INR, D-dimer: PT/INR, D-dimer PT 17.3 Sec. (12.2-14.9) H 07/21/19 11:43 INR 1.41 (0.87-1.13) H 07/21/19 11:43 Abnormal lab findings: Abnormal Labs 07/18/19 07/18/19 07/19/19 17:56 17:56 03:31 WBC 2.9 L RBC 3.49 L Hgb 9.4 L 8.8 L Hct 28.8 L MCH 25 L 25 L RDW 25.0 H 24.5 H Lymph # Seg Neutrophils % Seg Neuts % (Manual) 87.0 H 83.0 H Lymphocytes % (Manual) 10.0 L Lymphocytes # (Manual) 0.5 L 0.5 L PT INR Sodium Potassium Chloride 96.2 L Carbon Dioxide BUN Creatinine Glucose 112 H Alkaline Phosphatase 149 H NT-Pro-B Natriuret Pep 3321 H Albumin 3.8 L 07/19/19 07/20/19 07/20/19 03:31 03:32 03:32 WBC RBC 3.54 L Hgb 8.9 L Hct 29.5 L MCH 25 L RDW 23.6 H Lymph # Seg Neutrophils % Seg Neuts % (Manual) Lymphocytes % (Manual) Lymphocytes # (Manual) PT INR Sodium Potassium 5.3 H D Chloride 96.3 L 96.0 L Carbon Dioxide 31 H BUN 24 H Creatinine 1.5 H Glucose 128 H 110 H Alkaline Phosphatase 148 H NT-Pro-B Natriuret Pep Albumin 07/21/19 07/21/19 07/21/19 04:20 04:20 11:43 WBC 3.2 L RBC Hgb 9.5 L Hct MCH 25 L RDW 23.6 H Lymph # 0.5 L Seg Neutrophils % 81.6 H Seg Neuts % (Manual) Lymphocytes % (Manual) Lymphocytes # (Manual) PT 17.3 H INR 1.41 H Sodium 136 L Potassium 5.6 H Chloride 94.5 L Carbon Dioxide BUN 32 H Creatinine 1.8 H Glucose 133 H Alkaline Phosphatase 138 H NT-Pro-B Natriuret Pep Albumin 3.6 L 07/22/19 07/23/19 07/23/19 07:45 05:19 05:19 WBC 2.2 L RBC Hgb 9.2 L Hct 29.9 L MCH 25 L RDW 22.8 H Lymph # Seg Neutrophils % Seg Neuts % (Manual) Lymphocytes % (Manual) Lymphocytes # (Manual) PT INR Sodium 135 L Potassium Chloride 92.5 L 91.1 L Carbon Dioxide 31 H BUN 41 H 41 H Creatinine 1.9 H 1.6 H Glucose 157 H 176 H Alkaline Phosphatase NT-Pro-B Natriuret Pep Albumin 3.7 L Chest x-ray: image reviewed (no post thoracentesis pneumothorax) Allied health notes reviewed: nursing
--- NOTE | 2019-07-23 15:39 | Cat Scan Report ---
NONENHANCED CT SCAN OF THE HEAD: INDICATION / CLINICAL INFORMATION: 68 years Female; ams. TECHNIQUE: Routine CT head without contrast. All CT scans at this location are performed using CT dos e reduction for ALARA by means of automated exposure control. COMPARISON: None. FINDINGS: BRAIN / INTRACRANIAL CONTENTS: No acute hemorrhage, mass effect, midline shift, hydrocephalus, or ac rory, large territorial infarct. Focal area of encephalomalacia near the right side of genu of corpus callosum. Normal brain volume and ventricular/sulcal size for age. Cerebellar involution Confluent pe riventricular white matter hypointensity probably due to chronic small vessel disease. CRANIOCERVICAL JUNCTION: No significant abnormality. ORBITS: No significant abnormality of visualized orbits. SINUSES / MASTOIDS: No significant abnormality of the visualized paranasal sinuses or mastoid air eber ls. ADDITIONAL FINDINGS: None. IMPRESSION: No acute focal parenchymal lesion in the brain Signer Name: Leah Rodriguez MD Signed: 07/23/2019 3:35 PM Workstation Name: [id number]
[2019-07-23] MEDS ORDERED: hydrALAZINE 20 MG/1 ML INJ IV PRN (16:19)
[2019-07-23] MEDS: LORazepam 2 MG/ML VIAL IM PRN (16:42)
[2019-07-24] MEDS: methylPREDNISolone Sod Succinate 40 MG/1 ML INJ IV SCH ×3 (05:32→21:37)
[2019-07-24] MEDS: IPRATROPIUM/ALBUTEROL SULFATE 3 ML AMPUL.NEB IH SCH ×3 (07:38→21:38)
[2019-07-24] MEDS: ARFORMOTEROL 15 MCG/2 ML NEBU IH SCH ×2 (07:38→21:38)
[2019-07-24] MEDS: BUDESONIDE 0.5 MG/2 ML NEBU IH SCH ×2 (07:39→21:38)
[2019-07-24 08:17] LABS: Calcium 9.2 mg/dL (8.4-10.2)
--- NOTE | 2019-07-24 08:22 | Progress Note ---
Assessment and Plan Assessment and plan: The patient is a 68-year-old female present with a chief complaint of shortness of breath. Patient states she is had progressive shortness of breath over the past 3 weeks. Patient admits to 4 pillow orthopnea. Patient denies chest pain or fevers. Patient states she began to cough today and has been productive of white sputum. The patient states she is developed bilateral lower extremity edema over the past 3 weeks as well. Patient has a history of CHF and states she is on a "water pill." The patient was administered Lasix 40 mg IV by EMS prior to arrival. Day#2 Some improvement Day#3 Still SOB Day#2 SOB slightly better Day#[address] chest shows RUL mass Pulmonary consult Day 4 07/21/2019. Patient seen lying on her right side requesting for immediate thoracentesis due to shortness of breath. Discussed clinical care with the patient. Will hold Lasix as renal function is getting worse. Will obtain nephrology consultation. We will give a dose of Kayexalate. Will monitor renal function and potassium levels. Day 5 07/22/2019: Patient status post thoracentesis of 700 cc of fluid removed. Respiration improved. Renal function still tenuous. Discussed with rating examiner continue to hold IV Lasix acute kidney injury felt to be secondary to contrast-induced nephropathy. Xarelto still on hold as well waiting lung biopsy of right upper quadrant mass. Day 6: Patient renal function improving. Awaiting lung biopsy. She is status post 700 cc of fluid removed via thoracentesis. Also awaiting evaluation of the fluid analysis. Monitor Leukopenia. Will obtain a CT of the head. Spoke to sitter and also to the nurse, she will have the patient had a fall despite having a sitter. We will continue to monitor. May need restraints. Day 7: 07/24/2019: CT of the head is unremarkable for any acute pathology. May require ABG OR MR brain if altered mental status persist. Hold enoxaparin for planned CT-guided biopsy. Continue to hold lasix, will restart in am if ok with nephrology. Elevated glucose may be secondary to steroids. Nevertheless we will check A1c will start on sliding scale coverage at this point. fall precautions Acute and chronic respiratory failure on home O2 at 3L/min Acute heart failure with preserved ejection fraction Atrial fibrillation RUL lung mass Pleural effusion AE-COPD Tobacco use disorder/Nicotine dependence Morbid obesity HLD (hyperlipidemia) Hyperglycemia Severe pulmonary arterial systolic hypertension Hyperkalemia History Interval history: Patient seen and examined while shortness of breath is improved patient with altered mental status, sitter in place. Hospitalist Physical - Physical exam Narrative exam: General appearance: Present: mild respiratory distress improved compared to yesterday, well-nourished Although altered more today than yesterday. - EENT Eyes: PERRL, EOM intact ENT: hearing intact, clear oral mucosa Ears: bilateral: normal - Neck Neck: supple, normal ROM - Respiratory Respiratory effort: normal Respiratory: bilateral: CTA, rales, rhonchi - Breasts Breasts: normal - Cardiovascular Heart rate: 78 Rhythm: regular Heart Sounds: Present: S1 & S2. Absent: gallop, rub Extremities: no ischemia, pulses intact, No edema, normal color, Full ROM - Gastrointestinal General gastrointestinal: Present: soft, non-tender, non-distended, normal bowel sounds - Genitourinary Female genitourinary: normal - Integumentary Integumentary: clear, warm, dry - Musculoskeletal Musculoskeletal: 1, strength equal bilaterally - Neurologic Neurologic: moves all extremities - Psychiatric Psychiatric: memory intact, appropriate mood/affect, intact judgment & insight - Allied health notes Allied health notes reviewed: nursing, case management - Constitutional Vitals: Temp Pulse Resp BP Pulse Ox 97.5 F L 98 H 18 143/104 93 07/24/19 05:35 07/24/19 05:35 07/24/19 05:35 07/24/19 05:35 07/24/19 05:35 General appearance: Present: mild distress, well-nourished HEART Score - HEART Score EKG: Non-specific Age: > 65 Risk factors: > 3 risk factors or hx of atherosclerotic disease Troponin: Troponin T < 0.010 ng/mL (0.00-0.029) 07/18/19 17:56 - Critical Actions Critical Actions: 4-6 pts:12-16.6% risk of adverse cardiac event. Should be admitted Results - Labs CBC & Chem 7: 07/23/19 05:19 07/24/19 07:33 Labs: Laboratory Last Values WBC 2.2 K/mm3 (4.5-11.0) L 07/23/19 05:19 RBC 3.71 M/mm3 (3.65-5.03) 07/23/19 05:19 Hgb 9.2 gm/dl (10.1-14.3) L 07/23/19 05:19 Hct 29.9 % (30.3-42.9) L 07/23/19 05:19 MCV 81 fl (79-97) 07/23/19 05:19 MCH 25 pg (28-32) L 07/23/19 05:19 MCHC 31 % (30-34) 07/23/19 05:19 RDW 22.8 % (13.2-15.2) H 07/23/19 05:19 Plt Count 145 K/mm3 (140-440) 07/23/19 05:19 Lymph % (Auto) 16.9 % (13.4-35.0) 07/21/19 04:20 Turner % (Auto) 1.4 % (0.0-7.3) 07/21/19 04:20 Eos % (Auto) 0.0 % (0.0-4.3) 07/21/19 04:20 Baso % (Auto) 0.1 % (0.0-1.8) 07/21/19 04:20 Lymph # 0.5 K/mm3 (1.2-5.4) L 07/21/19 04:20 Turner # 0.0 K/mm3 (0.0-0.8) 07/21/19 04:20 Eos # 0.0 K/mm3 (0.0-0.4) 07/21/19 04:20 Baso # 0.0 K/mm3 (0.0-0.1) 07/21/19 04:20 Add Manual Diff Complete 07/19/19 03:31 Total Counted 100 07/19/19 03:31 Seg Neutrophils % 81.6 % (40.0-70.0) H 07/21/19 04:20 Seg Neuts % (Manual) 83.0 % (40.0-70.0) H 07/19/19 03:31 Band Neutrophils % 0 % 07/19/19 03:31 Lymphocytes % (Manual) 16.0 % (13.4-35.0) 07/19/19 03:31 Reactive Lymphs % (Man) 0 % 07/19/19 03:31 Monocytes % (Manual) 1.0 % (0.0-7.3) 07/19/19 03:31 Eosinophils % (Manual) 0 % (0.0-4.3) 07/19/19 03:31 Basophils % (Manual) 0 % (0.0-1.8) 07/19/19 03:31 Metamyelocytes % 0 % 07/19/19 03:31 Myelocytes % 0 % 07/19/19 03:31 Promyelocytes % 0 % 07/19/19 03:31 Blast Cells % 0 % 07/19/19 03:31 Nucleated RBC % Not Reportable 07/19/19 03:31 Seg Neutrophils # 2.6 K/mm3 (1.8-7.7) 07/21/19 04:20 Seg Neutrophils # Man 2.4 K/mm3 (1.8-7.7) 07/19/19 03:31 Band Neutrophils # 0.0 K/mm3 07/19/19 03:31 Lymphocytes # (Manual) 0.5 K/mm3 (1.2-5.4) L 07/19/19 03:31 Abs React Lymphs (Man) 0.0 K/mm3 07/19/19 03:31 Monocytes # (Manual) 0.0 K/mm3 (0.0-0.8) 07/19/19 03:31 Eosinophils # (Manual) 0.0 K/mm3 (0.0-0.4) 07/19/19 03:31 Basophils # (Manual) 0.0 K/mm3 (0.0-0.1) 07/19/19 03:31 Metamyelocytes # 0.0 K/mm3 07/19/19 03:31 Myelocytes # 0.0 K/mm3 07/19/19 03:31 Promyelocytes # 0.0 K/mm3 07/19/19 03:31 Blast Cells # 0.0 K/mm3 07/19/19 03:31 WBC Morphology Not Reportable 07/19/19 03:31 Hypersegmented Neuts Not Reportable 07/19/19 03:31 Hyposegmented Neuts Not Reportable 07/19/19 03:31 Hypogranular Neuts Not Reportable 07/19/19 03:31 Smudge Cells Not Reportable 07/19/19 03:31 Toxic Granulation Not Reportable 07/19/19 03:31 Toxic Vacuolation Not Reportable 07/19/19 03:31 Dohle Bodies Not Reportable 07/19/19 03:31 Pelger-Huet Anomaly Not Reportable 07/19/19 03:31 Camilo Rods Not Reportable 07/19/19 03:31 Platelet Estimate Consistent w auto 07/19/19 03:31 Clumped Platelets Not Reportable 07/19/19 03:31 Plt Clumps, EDTA Not Reportable 07/19/19 03:31 Large Platelets Not Reportable 07/19/19 03:31 Giant Platelets Not Reportable 07/19/19 03:31 Platelet Satelliting Not Reportable 07/19/19 03:31 Plt Morphology Comment Not Reportable 07/19/19 03:31 RBC Morphology Not Reportable 07/19/19 03:31 Dimorphic RBCs Not Reportable 07/19/19 03:31 Polychromasia Not Reportable 07/19/19 03:31 Hypochromasia 1+ 07/19/19 03:31 Poikilocytosis Not Reportable 07/19/19 03:31 Anisocytosis 2+ 07/19/19 03:31 Microcytosis Few 07/19/19 03:31 Macrocytosis Few 07/19/19 03:31 Spherocytes Not Reportable 07/19/19 03:31 Pappenheimer Bodies Not Reportable 07/19/19 03:31 Sickle Cells Not Reportable 07/19/19 03:31 Target Cells Not Reportable 07/19/19 03:31 Tear Drop Cells Not Reportable 07/19/19 03:31 Ovalocytes Few 07/19/19 03:31 Helmet Cells Not Reportable 07/19/19 03:31 Puri-Jewett Bodies Not Reportable 07/19/19 03:31 [place] Rings Not Reportable 07/19/19 03:31 [place] Cells Not Reportable 07/19/19 03:31 Bite Cells Not Reportable 07/19/19 03:31 Crenated Cell Not Reportable 07/19/19 03:31 Elliptocytes Not Reportable 07/19/19 03:31 Acanthocytes (Spur) Not Reportable 07/19/19 03:31 Rouleaux Not Reportable 07/19/19 03:31 Hemoglobin C Crystals Not Reportable 07/19/19 03:31 Schistocytes Rare 07/19/19 03:31 Malaria parasites Not Reportable 07/19/19 03:31 Colby Bodies Not Reportable 07/19/19 03:31 Hem Pathologist Commnt No 07/19/19 03:31 PT 17.3 Sec. (12.2-14.9) H 07/21/19 11:43 INR 1.41 (0.87-1.13) H 07/21/19 11:43 Sodium 136 mmol/L (137-145) L 07/24/19 07:33 Potassium 4.4 mmol/L (3.6-5.0) 07/24/19 07:33 Chloride 91.8 mmol/L (98-107) L 07/24/19 07:33 Carbon Dioxide 34 mmol/L (22-30) H 07/24/19 07:33 Anion Gap 15 mmol/L 07/24/19 07:33 BUN 40 mg/dL (7-17) H 07/24/19 07:33 Creatinine 1.6 mg/dL (0.7-1.2) H 07/24/19 07:33 Estimated GFR 39 ml/min 07/24/19 07:33 BUN/Creatinine Ratio 25 % 07/24/19 07:33 Glucose 214 mg/dL (65-100) H 07/24/19 07:33 Hemoglobin A1c 5.2 % (4-6) 07/19/19 03:31 Calcium 9.2 mg/dL (8.4-10.2) 07/24/19 07:33 Magnesium 2.10 mg/dL (1.7-2.3) 07/24/19 07:33 Total Bilirubin 0.70 mg/dL (0.1-1.2) 07/23/19 05:19 AST 12 units/L (5-40) 07/23/19 05:19 ALT 16 units/L (7-56) 07/23/19 05:19 Alkaline Phosphatase 126 units/L (35-129) 07/23/19 05:19 Ammonia 53.0 umol/L (25-60) 07/23/19 16:32 Total Creatine Kinase 67 units/L (30-135) 07/18/19 17:56 CK-MB (CK-2) 2.4 ng/mL (0.0-4.0) 07/18/19 17:56 CK-MB (CK-2) Rel Index 3.5 (0-4) 07/18/19 17:56 Troponin T < 0.010 ng/mL (0.00-0.029) 07/18/19 17:56 NT-Pro-B Natriuret Pep 3321 pg/mL (0-900) H 07/18/19 17:56 Total Protein 6.9 g/dL (6.3-8.2) 07/23/19 05:19 Albumin 3.7 g/dL (3.9-5) L 07/23/19 05:19 Albumin/Globulin Ratio 1.2 % 07/23/19 05:19 Fluid Type Pleural 07/21/19 14:45 Fluid Color Yellow 07/21/19 14:45 Fluid Appearance Hazy 07/21/19 14:45 Fluid WBC 443 /mm3 07/21/19 14:45 Fluid RBC 5250 /mm3 07/21/19 14:45 Fluid Seg Neutrophils 8.0 % 07/21/19 14:45 Fluid Lymphocytes 63.0 % 07/21/19 14:45 Fluid Reactive Lymphs 0 % 07/21/19 14:45 Fluid Monocytes 29.0 % 07/21/19 14:45 Fluid Eosinophils 0 % 07/21/19 14:45 Fluid Basophils 0 % 07/21/19 14:45 AFB Identification 07/21/19 14:45 - Diagnostic Impressions Diagnostic Impressions: Echocardiogram 07/18/19 22:35 Transthoracic Echocardiogram Indication: SOB BP: 154/91 HR: 92 Conclusions *The study is technically limited due to poor acoustic windows. *Mild concentric left ventricular hypertrophy is observed. *Global left ventricular systolic function is normal. *The estimated ejection fraction is 50-55%. *Abnormal left ventricular diastolic function is observed. *The left atrium is severely dilated. *The right ventricle is severely dilated. *There is mild aortic regurgitation. *There is evidence of severe pulmonary hypertension. Findings Procedure Info: The study quality is technically difficult. The study is technically limited due to poor acoustic windows. Left Ventricle: The left ventricular chamber size is normal. Mild concentric left ventricular hypertrophy is observed. Global left ventricular systolic function is normal. The estimated ejection fraction is 50-55%. Abnormal left ventricular diastolic function is observed. Abnormal left ventricular diastolic filling is observed, consistent with impaired relaxation. Left Atrium: The left atrium is severely dilated. Right Ventricle: The right ventricle is severely dilated. The right ventricular global systolic function is moderately reduced. Right Atrium: The right atrial cavity size is severely dilated. Aortic Valve: Mild aortic leaflet calcification is visualized. There is mild aortic regurgitation. Mitral Valve: There is mitral annular calcification. Mild mitral leaflet calcification is visualized. There is trace of mitral regurgitation. Tricuspid Valve: The tricuspid valve leaflets are normal. There is moderate to severe tricuspid regurgitation. The right ventricular systolic pressure is calculated at 72 mmHg. There is evidence of severe pulmonary hypertension. Pulmonic Valve: The pulmonic valve is not well visualized. The pulmonic valve appears normal. There is mild pulmonic regurgitation. Pericardium: A pericardial effusion is visualized. There is a minimial pericardial effusion. Aorta: The aorta appears normal. Venous: The inferior vena cava is dilated. There is no change in the dimension of the inferior vena cava with respiration consistent with markedly increased right atrial pressure. Measurements Chambers 2D Name Value Normal Range IVSd (2D) 1.27 cm (0.6 - 1.1) LVPWd (2D) 1.22 cm (0.6 - 1.1) LVIDd (2D) 4.71 cm (3.7 - 5.6) LVIDs (2D) 3.77 cm (2 - 3.8) LV FS (2D) 20.09 % - EF Teichholz (2D) 41.13 % - Ao root diameter (2D) 3.52 cm (2 - 3.7) Volumes/Mass Name Value Normal Range LA ESV SP 4CH (A/L) 107.42 ml - LA ESV SP 2CH (A/L) 135.51 ml - LA ESV BP (A/L) 128.25 ml - LA ESV BP (A/L) index 63.49 ml/m2 - LA ESV SP 4CH (MOD) 94.91 ml - LA ESV SP 2CH (MOD) 126.36 ml - LA ESV BP (MOD) 115.15 ml - LA ESV BP (MOD) index 57.01 ml/m2 - Diastolic/Systolic Function Name Value Normal Range MV E-wave Vmax 0.95 m/sec - MV deceleration time 148.19 msec - Aortic Valve Name Value Normal Range AV Vmax 1.53 m/sec - AV VTI 26.2 cm - AV peak gradient 9.37 mmHg - AV mean gradient 5.14 mmHg - LVOT diameter 2.34 cm - LVOT Vmax 1.03 m/sec - LVOT VTI 15.48 cm - LVOT peak gradient 4.28 mmHg - LVOT mean gradient 2.19 mmHg - SV LVOT 66.43 ml - JULIEN (continuity Vmax) 2.9 cm2 - JULIEN (continuity VTI) 2.54 cm2 - AR PHT 945.01 msec - AR peak gradient 78.01 mmHg - Ascending Ao 3.94 cm - Tricuspid Valve Name Value Normal Range TR Vmax 3.75 m/sec - TR peak gradient 56 mmHg - RAP 15 mmHg - RVSP 72 mmHg - IVC diameter 2.9 cm (1.2 - 2.3) Pulmonic Valve/Qp:Qs Name Value Normal Range PV Vmax 1.06 m/sec - PV peak gradient 4.52 mmHg - MN end-diastolic Vmax 2.29 m/sec - PV acceleration time 76.12 msec - Hopson/IV: Voiding Method Incontinent IV Catheter Type [Right INT / Saline Lock Forearm] IV Catheter Type [Left INT / Saline Lock Antecubital] Active Medications - Current Medications Current Medications: Generic Name Dose Route Start Last Admin Trade Name Freq PRN Reason Stop Dose Admin Acetaminophen 650 mg 07/18/19 22:13 07/19/19 22:00 Tylenol PO 650 mg Q4H PRN Administration Pain MILD(1-3)/Fever >100.5/KENDALL Albuterol/Ipratropium 1 ampul 07/21/19 14:00 07/24/19 07:38 Duoneb *Not For Prn Use* IH 1 ampul TIDRT CHRISTINA Administration Arformoterol Tartrate 15 mcg 07/21/19 11:45 07/24/19 07:38 Brovana Nebu IH 15 mcg Q12HRT CHRISTINA Administration Budesonide 0.5 mg 07/21/19 11:45 07/24/19 07:39 Pulmicort IH Not Given Q12HRT CHRISTINA Famotidine 20 mg 07/22/19 10:00 07/23/19 11:11 Pepcid PO 20 mg DAILY CHRISTINA Administration Hydralazine HCl 10 mg 07/23/19 16:19 07/23/19 16:43 Apresoline IV 10 mg Q6HR PRN Administration Blood Pressure Levofloxacin 750 mg 07/22/19 10:00 07/22/19 09:23 Levaquin PO 07/28/19 10:01 750 mg Q48HR CHRISTINA Administration Lorazepam 2 mg 07/23/19 16:22 07/23/19 16:42 Ativan IM 2 mg Q6H PRN Administration Agitation Methylprednisolone Sodium Succinate 40 mg 07/22/19 22:00 07/24/19 05:32 Solu-Medrol IV 40 mg Q8HR CHRISTINA Administration Metoclopramide HCl 10 mg 07/18/19 22:13 07/21/19 04:06 Reglan IV 10 mg Q6H PRN Administration Nausea And Vomiting Metoprolol Tartrate 50 mg 07/19/19 22:00 07/23/19 21:18 Metoprolol PO 50 mg BID CHRISTINA Administration Ondansetron HCl 4 mg 07/18/19 22:13 07/22/19 09:22 Zofran IV 4 mg Q8H PRN Administration Nausea And Vomiting Oxycodone/Acetaminophen 1 tab 07/18/19 22:13 07/22/19 14:21 Percocet 5/325 PO 1 tab Q6H PRN Administration Pain, Moderate (4-6) Sodium Chloride 10 ml 07/18/19 23:00 07/23/19 21:18 Sodium Chloride Flush Syringe 10 Ml IV 10 ml BID CHRISTINA Administration Sodium Chloride 10 ml 07/18/19 22:13 07/22/19 05:48 Sodium Chloride Flush Syringe 10 Ml IV 10 ml PRN PRN Administration LINE FLUSH
[2019-07-24] MEDS ORDERED: DEXTROSE 50% IN WATER (25GM) 50 ML SYRINGE IV PRN (08:39)
--- NOTE | 2019-07-24 08:40 | Progress Note ---
Assessment and Plan 1. Acute kidney injury: [place] in setting of contrast induced nephropathy. Urine studies ordered. Renal US ordered. Monitor renal function. Creatinine level 1.6 from 1.6 from 1.9 from 1.8 from 1.5. Avoid nephrotoxic agents. Meds dosage based on GFR. 2. FEN: Metabolic alkalosis, Diamox BID. Hyperkalemia, improved, monitor. LE edema, resume diuretics when appropriate. Monitor lytes and volume status. 3. Acute CHF, POA: Normal LVEF, followed by Cards. 4. Severe pulmonary arterial systolic hypertension. 5. Lung mass. 6. Acute on chronic hypoxic respiratory failure: Pulmonary following. 7. Right sided Pleural effusion: S/p thoracentesis. 8. Encephalopathy. 9. Hypertension. 10. Atrial fibrillation. 11. Anemia. Objective: Patient was seen and examined at the bedside. Sitter at the bedside. Examination: General appearance: well-developed, appears stated age, obese, no distress HEENT: atraumatic Neck: neck supple, trachea midline Respiratory: Decreased Breath Sounds (bibasilar) Heart: regular, normal heart rate, S1S2, no murmur Gastrointestinal: obese, soft, bowel sounds present, not tender Integumentary: no rash, warm and dry Neurologic: not cooperative Ext: 1+ LE edema Subjective Date of service: 07/24/19 Principal diagnosis: Chf exacerbation,RUL mass,PNA Objective - Vital Signs Vital signs: Vital Signs - 12hr 07/23/19 07/23/19 07/23/19 21:00 21:01 22:00 Temperature Pulse Rate Pulse Rate [ 85 Anterior Bilateral Throughout] Pulse Rate [ 83 Posterior Bilateral Throughout] Respiratory 20 Rate Respiratory 18 Rate [Anterior Bilateral Throughout] Respiratory 16 Rate [Posterior Bilateral Throughout] Blood Pressure O2 Sat by Pulse 99 Oximetry 07/23/19 07/24/19 07/24/19 23:19 03:00 05:35 Temperature 98.0 F 97.5 F L Pulse Rate 83 97 H 98 H Pulse Rate [ Anterior Bilateral Throughout] Pulse Rate [ Posterior Bilateral Throughout] Respiratory 17 18 Rate Respiratory Rate [Anterior Bilateral Throughout] Respiratory Rate [Posterior Bilateral Throughout] Blood Pressure 153/87 143/104 O2 Sat by Pulse 97 93 Oximetry - Lab 07/23/19 05:19 07/24/19 07:33 Most recent lab results Calcium 9.2 mg/dL (8.4-10.2) 07/24/19 07:33 Magnesium 2.10 mg/dL (1.7-2.3) 07/24/19 07:33 Medications & Allergies - Medications Allergies/Adverse Reactions: Allergies No Known Allergies Allergy (Verified 07/18/19 23:05) Home Medications: Home Medications Medication Instructions Recorded Confirmed Last Taken Type HYDROcodone/APAP 5-325 [[place] 1 each PO Q6HR PRN #12 tablet 12/17/18 07/19/19 Unknown Rx 5/325] Active Medications: Generic Name Dose Route Start Last Admin Trade Name Freq PRN Reason Stop Dose Admin Acetaminophen 650 mg 07/18/19 22:13 07/19/19 22:00 Tylenol PO 650 mg Q4H PRN Administration Pain MILD(1-3)/Fever >100.5/KENDALL Albuterol/Ipratropium 1 ampul 07/21/19 14:00 07/24/19 07:38 Duoneb *Not For Prn Use* IH 1 ampul TIDRT CHRISTINA Administration Arformoterol Tartrate 15 mcg 07/21/19 11:45 07/24/19 07:38 Brovana Nebu IH 15 mcg Q12HRT CHRISTINA Administration Budesonide 0.5 mg 07/21/19 11:45 07/24/19 07:39 Pulmicort IH Not Given Q12HRT CHRISTINA Famotidine 20 mg 07/22/19 10:00 07/23/19 11:11 Pepcid PO 20 mg DAILY CHRISTINA Administration Hydralazine HCl 10 mg 07/23/19 16:19 07/23/19 16:43 Apresoline IV 10 mg Q6HR PRN Administration Blood Pressure Levofloxacin 750 mg 07/22/19 10:00 07/22/19 09:23 Levaquin PO 07/28/19 10:01 750 mg Q48HR CHRISTINA Administration Lorazepam 2 mg 07/23/19 16:22 07/23/19 16:42 Ativan IM 2 mg Q6H PRN Administration Agitation Methylprednisolone Sodium Succinate 40 mg 07/22/19 22:00 07/24/19 05:32 Solu-Medrol IV 40 mg Q8HR CHRISTINA Administration Metoclopramide HCl 10 mg 07/18/19 22:13 07/21/19 04:06 Reglan IV 10 mg Q6H PRN Administration Nausea And Vomiting Metoprolol Tartrate 50 mg 07/19/19 22:00 07/23/19 21:18 Metoprolol PO 50 mg BID CHRISTINA Administration Ondansetron HCl 4 mg 07/18/19 22:13 07/22/19 09:22 Zofran IV 4 mg Q8H PRN Administration Nausea And Vomiting Oxycodone/Acetaminophen 1 tab 07/18/19 22:13 07/22/19 14:21 Percocet 5/325 PO 1 tab Q6H PRN Administration Pain, Moderate (4-6) Sodium Chloride 10 ml 07/18/19 23:00 07/23/19 21:18 Sodium Chloride Flush Syringe 10 Ml IV 10 ml BID CHRISTINA Administration Sodium Chloride 10 ml 07/18/19 22:13 07/22/19 05:48 Sodium Chloride Flush Syringe 10 Ml IV 10 ml PRN PRN Administration LINE FLUSH
[2019-07-24] MEDS: METOPROLOL TARTRATE 50 MG TAB PO SCH (10:08)
[2019-07-24] MEDS: levoFLOXacin 750 MG TAB PO SCH (10:10)
[2019-07-24] MEDS: FAMOTIDINE 20 MG TAB PO SCH (10:10)
[2019-07-24 10:33] LABS: ABG HCO3 33.6 mmol/L (20.0-26.0); ABG Methemoglobin 0.3 % (0.0-1.5); ABG PCO2 59.5 mm Hg; ABG PH 7.369 pH Units (7.350-7.450); ABG PO2 81.5 mm Hg (80.0-90.0)
--- NOTE | 2019-07-24 11:29 | Progress Note ---
Assessment and Plan Diuretics are being held in view of renal insufficiency may need Lasix 40 mg once a day patient is awaiting thoracentesis with lung biopsy. Change to Cardizem from Lopressor as patient has pulmonary hypertension. Awaiting lung biopsy and restart oral coagulation once biopsy is done - Patient Problems (1) Acute heart failure with preserved ejection fraction Current Visit: Yes Status: Acute (2) Acute on chronic respiratory failure Current Visit: Yes Status: Acute (3) Atrial fibrillation Current Visit: Yes Status: Chronic (4) COPD (chronic obstructive pulmonary disease) Current Visit: Yes Status: Chronic Qualifiers: Emphysema type: unspecified (5) HLD (hyperlipidemia) Current Visit: Yes Status: Chronic Qualifiers: Hyperlipidemia type: mixed hyperlipidemia Qualified Code(s): E78.2 - Mixed hyperlipidemia (6) HTN (hypertension) Current Visit: Yes Status: Chronic Qualifiers: Hypertension type: essential hypertension Qualified Code(s): I10 - Essential (primary) hypertension (7) Lung mass Current Visit: Yes Status: Chronic (8) Severe pulmonary arterial systolic hypertension Current Visit: Yes Status: Chronic (9) Tobacco use Current Visit: Yes Status: Chronic Subjective Date of service: 07/24/19 Principal diagnosis: Chf exacerbation,RUL mass,PNA Interval history: Patient laying in bed still mildly confused denies any shortness of breath Objective Vital Signs Temp Pulse Pulse Pulse Pulse Resp Resp 07/24/19 11:05 85 20 07/24/19 10:08 104 H 07/24/19 10:00 16 07/24/19 05:35 97.5 F L 98 H 18 07/24/19 03:00 97 H 07/23/19 23:19 98.0 F 83 17 07/23/19 22:00 20 07/23/19 21:01 07/23/19 21:00 85 83 18 07/23/19 19:48 99.3 F 85 17 07/23/19 19:45 99.3 F 75 17 07/23/19 17:00 83 07/23/19 16:43 87 07/23/19 14:00 77 07/23/19 12:00 77 07/23/19 11:30 97.2 F L 78 25 H Resp Resp BP BP Pulse Ox 07/24/19 11:05 155/100 100 07/24/19 10:08 07/24/19 10:00 07/24/19 05:35 143/104 93 07/24/19 03:00 07/23/19 23:19 153/87 97 07/23/19 22:00 07/23/19 21:01 99 07/23/19 21:00 16 07/23/19 19:48 157/95 95 07/23/19 19:45 170/102 96 07/23/19 17:00 07/23/19 16:43 07/23/19 14:00 18 07/23/19 12:00 07/23/19 11:30 175/99 98 - Physical Examination General: No Apparent Distress HEENT: Positive: PERRL Neck: Positive: neck supple, trachea midline Cardiac: Positive: Reg Rate and Rhythm, Audible Murmur Lungs: Positive: Decreased Breath Sounds Neuro: Positive: Grossly Intact Abdomen: Negative: Tender Skin: Negative: Rash Musculoskeletal: No Pain Extremities: Absent: edema - Labs and Meds Comprehensive Metabolic Panel 07/24/19 Range/Units 07:33 Sodium 136 L (137-145) mmol/L Potassium 4.4 (3.6-5.0) mmol/L Chloride 91.8 L (98-107) mmol/L Carbon Dioxide 34 H (22-30) mmol/L BUN 40 H (7-17) mg/dL Creatinine 1.6 H (0.7-1.2) mg/dL Glucose 214 H (65-100) mg/dL Calcium 9.2 (8.4-10.2) mg/dL - Imaging and Cardiology EKG: report reviewed Echo: report reviewed (Normal LV function severe pulmonary hypertension) Holter: report reviewed - Telemetry EKG Rhythm: Atrial Fibrillation (Heart rate in the 80s) - Allied health notes Allied health notes reviewed: nursing
[2019-07-24] MEDS: INSULIN LISPRO 100 UNIT/ML SUB-Q SCH ×3 (12:30→21:40)
[2019-07-24] MEDS: dilTIAZem 60 MG TAB PO SCH ×2 (13:00→18:00)
[2019-07-24] MEDS: LORazepam 2 MG/ML VIAL IM PRN ×2 (13:37→17:00)
--- NOTE | 2019-07-24 14:31 | Progress Note ---
Assessment and Plan Acute and chronic respiratory failure on home O2 at 3L/min RUL lung mass Pleural effusion AE-COPD Tobacco use disorder/Nicotine dependence Morbid obesity Acute heart failure with preserved ejection fraction Atrial fibrillation Severe pulmonary arterial systolic hypertension Hyperkalemia - follow pleural fluid cytology - prn antipsychotics's - continue supplemental oxygen to keep O2 sats 88-90% - ABG - Bronchodilators, nebulized steroids - CT guided biopsy of RUL mass, diagnostic/therapeutic thoracentesis. - Send pleural fluid for studies including cytology - Stop Enoxaparin for procedure, can resume post procedure - Stress ulcer prophylaxis while on high dose steroids - Antibiotics for AE-COPD, to complete 5 day course - Nicotine withdrawal precautions - Smoking cessation counselling - Steroids with taper in the next 48 hours - Chronic COPD medications - Heart failure measures per Cardiology - Avoid nephrotoxins, adjust all medications for GFR and CrCL - Medical management/ redistribution therapies of hyperkalemia- defer primary service. Await CT guided biopsy and pleural fluid studies for further management decisions All other care per Attending and other consultants ... re-evaluate in am & prn Subjective Date of service: 07/24/19 Principal diagnosis: Ac and ch hypoxemic resp failure; lung mass; Pleural effusion; COPD; HFpEF Interval history: Patient is seen today for: Ac and ch hypoxemic resp failure; R lung mass; Pleural effusion; AE-COPD; Tobacco use disorder/Nicotine dependence; Morbid obesity; HFpEF; Atrial fibrillation; Severe pulmonary arterial systolic hypertension; Hyperkalemia Seen and examined at bedside; 24hour events reviewed; nursing and respiratory care staff consulted; no adverse overnight events reported to me; resting peacefully in bed; Objective Vital Signs - 12hr 07/24/19 07/24/19 07/24/19 03:00 05:35 10:00 Temperature 97.5 F L Pulse Rate 97 H 98 H Respiratory 18 16 Rate Blood Pressure 143/104 O2 Sat by Pulse 93 Oximetry 07/24/19 07/24/19 10:08 11:05 Temperature Pulse Rate 104 H 85 Respiratory 20 Rate Blood Pressure 155/100 O2 Sat by Pulse 100 Oximetry Constitutional: no acute distress, alert, other (sitting up at the side of the bed) Eyes: non-icteric ENT: oropharynx moist, other (mallampati 3) Neck: supple, no lymphadenopathy, no JVD Effort: mildly labored Ascultation: Right: diminished breath sounds, Bilateral: wheezes (Rhonchi ) Percussion: Right: dull (base) Cardiovascular: irregular rhythm, other (S1,S2, no murmurs) Gastrointestinal: normoactive bowel sounds, soft, non-tender, non-distended Integumentary: normal Extremities: no cyanosis, pulses normal, no ischemia or petechiae, edema (1+) Neurologic: normal mental status, non-focal exam, pupils equal and round, CN II- XII normal, motor strength normal and Psychiatric: other (delirium. mild) CBC and BMP: 07/23/19 05:19 07/24/19 07:33 ABG, PT/INR, D-dimer: ABG ABG pH 7.369 pH Units (7.350-7.450) 07/24/19 09:55 ABG pCO2 59.5 mm Hg 07/24/19 09:55 ABG pO2 81.5 mm Hg (80.0-90.0) 07/24/19 09:55 ABG O2 Saturation 97.0 % (95.0-99.0) 07/24/19 09:55 PT/INR, D-dimer PT 17.3 Sec. (12.2-14.9) H 07/21/19 11:43 INR 1.41 (0.87-1.13) H 07/21/19 11:43 Abnormal lab findings: Abnormal Labs 07/18/19 07/18/19 07/19/19 17:56 17:56 03:31 WBC 2.9 L RBC 3.49 L Hgb 9.4 L 8.8 L Hct 28.8 L MCH 25 L 25 L RDW 25.0 H 24.5 H Lymph # Seg Neutrophils % Seg Neuts % (Manual) 87.0 H 83.0 H Lymphocytes % (Manual) 10.0 L Lymphocytes # (Manual) 0.5 L 0.5 L PT INR ABG HCO3 ABG Base Excess ABG Hemoglobin Oxyhemoglobin Sodium Potassium Chloride 96.2 L Carbon Dioxide BUN Creatinine Glucose 112 H Alkaline Phosphatase 149 H NT-Pro-B Natriuret Pep 3321 H Albumin 3.8 L 07/19/19 07/20/19 07/20/19 03:31 03:32 03:32 WBC RBC 3.54 L Hgb 8.9 L Hct 29.5 L MCH 25 L RDW 23.6 H Lymph # Seg Neutrophils % Seg Neuts % (Manual) Lymphocytes % (Manual) Lymphocytes # (Manual) PT INR ABG HCO3 ABG Base Excess ABG Hemoglobin Oxyhemoglobin Sodium Potassium 5.3 H D Chloride 96.3 L 96.0 L Carbon Dioxide 31 H BUN 24 H Creatinine 1.5 H Glucose 128 H 110 H Alkaline Phosphatase 148 H NT-Pro-B Natriuret Pep Albumin 07/21/19 07/21/19 07/21/19 04:20 04:20 11:43 WBC 3.2 L RBC Hgb 9.5 L Hct MCH 25 L RDW 23.6 H Lymph # 0.5 L Seg Neutrophils % 81.6 H Seg Neuts % (Manual) Lymphocytes % (Manual) Lymphocytes # (Manual) PT 17.3 H INR 1.41 H ABG HCO3 ABG Base Excess ABG Hemoglobin Oxyhemoglobin Sodium 136 L Potassium 5.6 H Chloride 94.5 L Carbon Dioxide BUN 32 H Creatinine 1.8 H Glucose 133 H Alkaline Phosphatase 138 H NT-Pro-B Natriuret Pep Albumin 3.6 L 07/22/19 07/23/19 07/23/19 07:45 05:19 05:19 WBC 2.2 L RBC Hgb 9.2 L Hct 29.9 L MCH 25 L RDW 22.8 H Lymph # Seg Neutrophils % Seg Neuts % (Manual) Lymphocytes % (Manual) Lymphocytes # (Manual) PT INR ABG HCO3 ABG Base Excess ABG Hemoglobin Oxyhemoglobin Sodium 135 L Potassium Chloride 92.5 L 91.1 L Carbon Dioxide 31 H BUN 41 H 41 H Creatinine 1.9 H 1.6 H Glucose 157 H 176 H Alkaline Phosphatase NT-Pro-B Natriuret Pep Albumin 3.7 L 07/24/19 07/24/19 07:33 09:55 WBC RBC Hgb Hct MCH RDW Lymph # Seg Neutrophils % Seg Neuts % (Manual) Lymphocytes % (Manual) Lymphocytes # (Manual) PT INR ABG HCO3 33.6 H ABG Base Excess 7.0 H ABG Hemoglobin 9.5 L Oxyhemoglobin 94.7 L Sodium 136 L Potassium Chloride 91.8 L Carbon Dioxide 34 H BUN 40 H Creatinine 1.6 H Glucose 214 H Alkaline Phosphatase NT-Pro-B Natriuret Pep Albumin Allied health notes reviewed: nursing
[2019-07-25] MEDS: dilTIAZem 60 MG TAB PO SCH ×5 (00:11→21:35)
[2019-07-25 04:12] LABS: Hematocrit 31.1 % (30.3-42.9); Hemoglobin 9.5 gm/dl (10.1-14.3); Mean Corpuscular HGB Conc 31 % (30-34); Mean Corpuscular Volume 82 fl (79-97); Platelet Count 139 K/mm3 (140-440); Red Blood Count 3.81 M/mm3 (3.65-5.03)
[2019-07-25 04:18] LABS: Red Cell Distribution Width 23.2 % (13.2-15.2)
[2019-07-25 04:21] LABS: Calcium 9.2 mg/dL (8.4-10.2)
[2019-07-25] MEDS: methylPREDNISolone Sod Succinate 40 MG/1 ML INJ IV SCH ×3 (05:06→21:34)
[2019-07-25] MEDS: BUDESONIDE 0.5 MG/2 ML NEBU IH SCH ×2 (07:39→20:38)
[2019-07-25] MEDS: ARFORMOTEROL 15 MCG/2 ML NEBU IH SCH ×2 (07:39→20:38)
[2019-07-25] MEDS: IPRATROPIUM/ALBUTEROL SULFATE 3 ML AMPUL.NEB IH SCH ×3 (07:39→20:39)
[2019-07-25] MEDS: INSULIN LISPRO 100 UNIT/ML SUB-Q SCH ×4 (08:00→22:56)
--- NOTE | 2019-07-25 08:11 | Progress Note ---
Assessment and Plan his is 68 year old female admitted with shortness of breath. Patient has history of COPD, Hypertension and CHF. According to the patient she has home O2. Patient has heavy history of smoking, 1 pack x 40 years. still soking. Counseled to stop smoking. Drinks alcohol some times heavy. Denies drug abuse. 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 Patient and has 4 children. Patient allergic to Lisinopril. Patient complaining shortness of breath and non productive cough. Patient chest xray reported large right pleural effusion and right basilar consolidation. Patient has CAT scan of chest 07/19/19 reported 1. Right upper lobe mass abutting the medial aspect of the pleura, configuration is more in keeping with a pulmonary lesion rather than right paratracheal adenopathy does worrisome for lung carcinoma 2. Mediastinal lymphadenopathy 3. Airspace changes right lower lobe with moderate size right pleural effusion 4. Cardiac enlargement Patient undergone thoracentesis Pleural fluid showed WBC 443. RBC 5250 Remaining othe pleural fluid results pending. Patient scheduled for percutaneous needle biopsy of chest lesion to day. Patient sleeping on 3 litres o2 via nasal canula. O2 saturation 97%. No acute respiratory distress. - Patient Problems (1) Pleural effusion, right Current Visit: Yes Status: Acute Plan to address problem: Patient undergone Right Thoracentesis 07/21/19 Patient undergone thoracentesis Pleural fluid showed WBC 443. RBC 5250 Remaining othe pleural fluid results pending. (2) COPD (chronic obstructive pulmonary disease) Current Visit: Yes Status: Chronic Qualifiers: Emphysema type: unspecified Plan to address problem: O2 3 litres via nasal canula. Albuterol/atrovent aerosol treatments q 6 hours. Continue I/V solumedrol Continue Levaquin Patient is on S/C Heparin. Continue Famotidine. (3) Lung mass Current Visit: Yes Status: Chronic Plan to address problem: Patient scheduled for percutaneous needle biopsy of Right chest lesion under CT Guidance. (4) Severe pulmonary arterial systolic hypertension Current Visit: Yes Status: Chronic Plan to address problem: Likely secondary to COPD and CHF. Optimize treatment for both dose conditions. (5) Tobacco use Current Visit: Yes Status: Chronic Plan to address problem: Counselled to stop smoking. (6) Acute heart failure with preserved ejection fraction Current Visit: Yes Status: Acute Plan to address problem: Management as per cardiology. (7) Acute on chronic respiratory failure Current Visit: Yes Status: Acute Plan to address problem: Management as per Cardiology. (8) Atrial fibrillation Current Visit: Yes Status: Chronic Plan to address problem: Managent as per cardiology. Patient is on S/C Lovenox. (9) HLD (hyperlipidemia) Current Visit: Yes Status: Chronic Qualifiers: Hyperlipidemia type: mixed hyperlipidemia Qualified Code(s): E78.2 - Mixed hyperlipidemia Plan to address problem: Management as per primary care. (10) HTN (hypertension) Current Visit: Yes Status: Chronic Qualifiers: Hypertension type: essential hypertension Qualified Code(s): I10 - Essential (primary) hypertension Plan to address problem: Management as per primary care. Subjective Date of service: 07/25/19 Principal diagnosis: Ac and ch hypoxemic resp failure; lung mass; Pleural effusion; COPD; HFpEF Interval history: his is 68 year old female admitted with shortness of breath. Patient has history of COPD, Hypertension and CHF. According to the patient she has home O2. Patient has heavy history of smoking, 1 pack x 40 years. still soking. Counseled to stop smoking. Drinks alcohol some times heavy. Denies drug abuse. 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 Patient allergic to Lisinopril. Patient complaining shortness of breath and non productive cough. Patient chest xray reported large right pleural effusion and right basilar consolidation. Patient has CAT scan of chest 07/19/19 reported 1. Right upper lobe mass abutting the medial aspect of the pleura, configuration is more in keeping with a pulmonary lesion rather than right paratracheal adenopathy does worrisome for lung carcinoma 2. Mediastinal lymphadenopathy 3. Airspace changes right lower lobe with moderate size right pleural effusion 4. Cardiac enlargement Patient undergone thoracentesis Pleural fluid showed WBC 443. RBC 5250 Remaining othe pleural fluid results pending. Patient scheduled for percutaneous needle biopsy of chest lesion to day. Patient sleeping on 3 litres o2 via nasal canula. O2 saturation 97%. No acute respiratory distress. Objective Vital Signs - 12hr 07/24/19 07/24/19 07/24/19 21:42 21:44 22:00 Temperature Pulse Rate Pulse Rate [ 88 Anterior Bilateral Throughout] Pulse Rate [ 122 H Posterior Bilateral Throughout] Respiratory 16 Rate Respiratory 20 Rate [Anterior Bilateral Throughout] Respiratory 24 Rate [Posterior Bilateral Throughout] Blood Pressure O2 Sat by Pulse 70 L Oximetry 07/24/19 07/25/19 07/25/19 22:58 00:00 03:47 Temperature 98.1 F 97.6 F Pulse Rate 80 73 85 Pulse Rate [ Anterior Bilateral Throughout] Pulse Rate [ Posterior Bilateral Throughout] Respiratory 19 20 Rate Respiratory Rate [Anterior Bilateral Throughout] Respiratory Rate [Posterior Bilateral Throughout] Blood Pressure 167/93 167/99 O2 Sat by Pulse 100 94 Oximetry Constitutional: no acute distress, asleep Eyes: non-icteric ENT: oropharynx moist, other (mallampati 3) Neck: supple, no lymphadenopathy, no JVD Effort: mildly labored Ascultation: Right: diminished breath sounds, Bilateral: wheezes (Rhonchi ) Percussion: Right: dull (base) Cardiovascular: irregular rhythm, other (S1,S2, no murmurs) Gastrointestinal: normoactive bowel sounds, soft, non-tender, non-distended Integumentary: normal Extremities: no cyanosis, pulses normal, no ischemia or petechiae, edema (1+) Neurologic: normal mental status, non-focal exam, pupils equal and round, CN II- XII normal, motor strength normal and Psychiatric: other (delirium. mild) CBC and BMP: 07/25/19 03:38 07/25/19 03:38 ABG, PT/INR, D-dimer: ABG ABG pH 7.369 pH Units (7.350-7.450) 07/24/19 09:55 ABG pCO2 59.5 mm Hg 07/24/19 09:55 ABG pO2 81.5 mm Hg (80.0-90.0) 07/24/19 09:55 ABG O2 Saturation 97.0 % (95.0-99.0) 07/24/19 09:55 PT/INR, D-dimer PT 17.3 Sec. (12.2-14.9) H 07/21/19 11:43 INR 1.41 (0.87-1.13) H 07/21/19 11:43 Abnormal lab findings: Abnormal Labs 07/18/19 07/18/19 07/19/19 17:56 17:56 03:31 WBC 2.9 L RBC 3.49 L Hgb 9.4 L 8.8 L Hct 28.8 L MCH 25 L 25 L RDW 25.0 H 24.5 H Plt Count Lymph # Seg Neutrophils % Seg Neuts % (Manual) 87.0 H 83.0 H Lymphocytes % (Manual) 10.0 L Lymphocytes # (Manual) 0.5 L 0.5 L PT INR ABG HCO3 ABG Base Excess ABG Hemoglobin Oxyhemoglobin Sodium Potassium Chloride 96.2 L Carbon Dioxide BUN Creatinine Glucose 112 H POC Glucose Alkaline Phosphatase 149 H NT-Pro-B Natriuret Pep 3321 H Albumin 3.8 L 07/19/19 07/20/19 07/20/19 03:31 03:32 03:32 WBC RBC 3.54 L Hgb 8.9 L Hct 29.5 L MCH 25 L RDW 23.6 H Plt Count Lymph # Seg Neutrophils % Seg Neuts % (Manual) Lymphocytes % (Manual) Lymphocytes # (Manual) PT INR ABG HCO3 ABG Base Excess ABG Hemoglobin Oxyhemoglobin Sodium Potassium 5.3 H D Chloride 96.3 L 96.0 L Carbon Dioxide 31 H BUN 24 H Creatinine 1.5 H Glucose 128 H 110 H POC Glucose Alkaline Phosphatase 148 H NT-Pro-B Natriuret Pep Albumin 07/21/19 07/21/19 07/21/19 04:20 04:20 11:43 WBC 3.2 L RBC Hgb 9.5 L Hct MCH 25 L RDW 23.6 H Plt Count Lymph # 0.5 L Seg Neutrophils % 81.6 H Seg Neuts % (Manual) Lymphocytes % (Manual) Lymphocytes # (Manual) PT 17.3 H INR 1.41 H ABG HCO3 ABG Base Excess ABG Hemoglobin Oxyhemoglobin Sodium 136 L Potassium 5.6 H Chloride 94.5 L Carbon Dioxide BUN 32 H Creatinine 1.8 H Glucose 133 H POC Glucose Alkaline Phosphatase 138 H NT-Pro-B Natriuret Pep Albumin 3.6 L 07/22/19 07/23/19 07/23/19 07:45 05:19 05:19 WBC 2.2 L RBC Hgb 9.2 L Hct 29.9 L MCH 25 L RDW 22.8 H Plt Count Lymph # Seg Neutrophils % Seg Neuts % (Manual) Lymphocytes % (Manual) Lymphocytes # (Manual) PT INR ABG HCO3 ABG Base Excess ABG Hemoglobin Oxyhemoglobin Sodium 135 L Potassium Chloride 92.5 L 91.1 L Carbon Dioxide 31 H BUN 41 H 41 H Creatinine 1.9 H 1.6 H Glucose 157 H 176 H POC Glucose Alkaline Phosphatase NT-Pro-B Natriuret Pep Albumin 3.7 L 07/24/19 07/24/19 07/24/19 07:33 09:55 12:30 WBC RBC Hgb Hct MCH RDW Plt Count Lymph # Seg Neutrophils % Seg Neuts % (Manual) Lymphocytes % (Manual) Lymphocytes # (Manual) PT INR ABG HCO3 33.6 H ABG Base Excess 7.0 H ABG Hemoglobin 9.5 L Oxyhemoglobin 94.7 L Sodium 136 L Potassium Chloride 91.8 L Carbon Dioxide 34 H BUN 40 H Creatinine 1.6 H Glucose 214 H POC Glucose 145 H Alkaline Phosphatase NT-Pro-B Natriuret Pep Albumin 07/24/19 07/24/19 07/25/19 19:00 20:31 03:38 WBC RBC Hgb Hct MCH RDW Plt Count Lymph # Seg Neutrophils % Seg Neuts % (Manual) Lymphocytes % (Manual) Lymphocytes # (Manual) PT INR ABG HCO3 ABG Base Excess ABG Hemoglobin Oxyhemoglobin Sodium Potassium Chloride 94.9 L Carbon Dioxide 31 H BUN 39 H Creatinine 1.4 H Glucose 179 H POC Glucose 180 H 169 H Alkaline Phosphatase NT-Pro-B Natriuret Pep Albumin 07/25/19 07/25/19 03:38 07:44 WBC 2.2 L RBC Hgb 9.5 L Hct MCH 25 L RDW 23.2 H Plt Count 139 L Lymph # Seg Neutrophils % Seg Neuts % (Manual) Lymphocytes % (Manual) Lymphocytes # (Manual) PT INR ABG HCO3 ABG Base Excess ABG Hemoglobin Oxyhemoglobin Sodium Potassium Chloride Carbon Dioxide BUN Creatinine Glucose POC Glucose 187 H Alkaline Phosphatase NT-Pro-B Natriuret Pep Albumin Allied health notes reviewed: nursing
--- NOTE | 2019-07-25 09:31 | Progress Note ---
Assessment and Plan Diuretics are being held in view of renal insufficiency may need Lasix 40 mg once a day patient is awaiting thoracentesis with lung biopsy. Change to Cardizem from Lopressor as patient has pulmonary hypertension. Awaiting lung biopsy and restart oral coagulation once biopsy is done The patient has been seen in conjunction with Dr. Santacruz who agrees with the assessment and plan of care. - Patient Problems (1) Acute heart failure with preserved ejection fraction Current Visit: Yes Status: Acute (2) Lung mass Current Visit: Yes Status: Chronic (3) Severe pulmonary arterial systolic hypertension Current Visit: Yes Status: Chronic (4) Pleural effusion, right Current Visit: Yes Status: Acute (5) COPD (chronic obstructive pulmonary disease) Current Visit: Yes Status: Chronic Qualifiers: Emphysema type: unspecified (6) Acute on chronic respiratory failure Current Visit: Yes Status: Acute (7) Accelerated hypertension Current Visit: Yes Status: Acute (8) Atrial fibrillation Current Visit: Yes Status: Chronic (9) Anemia Current Visit: Yes Status: Acute (10) Tobacco use Current Visit: Yes Status: Chronic Subjective Date of service: 07/25/19 Principal diagnosis: Ac and ch hypoxemic resp failure; lung mass; Pleural effusion; COPD; HFpEF Interval history: Pt resting in bed, no current complaints. Objective Last Vital Signs Temp 97.6 F 07/25/19 07:36 Pulse 81 07/25/19 07:36 Resp 18 07/25/19 07:36 BP 150/95 07/25/19 07:36 Pulse Ox 92 07/25/19 08:34 - Physical Examination General: No Apparent Distress HEENT: Positive: PERRL Neck: Positive: neck supple, trachea midline Cardiac: Positive: irregularly irregular, S1/S2 Lungs: Positive: Decreased Breath Sounds Neuro: Positive: Grossly Intact Abdomen: Negative: Tender Skin: Negative: Rash Musculoskeletal: No Pain Extremities: Absent: edema - Labs and Meds CBC 07/25/19 Range/Units 03:38 WBC 2.2 L (4.5-11.0) K/mm3 RBC 3.81 (3.65-5.03) M/mm3 Hgb 9.5 L (10.1-14.3) gm/dl Hct 31.1 (30.3-42.9) % Plt Count 139 L (140-440) K/mm3 Comprehensive Metabolic Panel 06/15/20 Range/Units 03:38 Sodium 139 (137-145) mmol/L Potassium 4.1 (3.6-5.0) mmol/L Chloride 94.9 L (98-107) mmol/L Carbon Dioxide 31 H (22-30) mmol/L BUN 39 H (7-17) mg/dL Creatinine 1.4 H (0.7-1.2) mg/dL Glucose 179 H (65-100) mg/dL Calcium 9.2 (8.4-10.2) mg/dL - Imaging and Cardiology EKG: report reviewed Echo: report reviewed (Normal LV function severe pulmonary hypertension) Holter: report reviewed - Allied health notes Allied health notes reviewed: nursing
--- NOTE | 2019-07-25 09:40 | Progress Note ---
Assessment and Plan 1. Acute kidney injury: [place] in setting of contrast induced nephropathy. Urine studies ordered. Renal US ordered. Monitor renal function. Creatinine level 1.4 from 1.6 from 1.6 from 1.9 from 1.8 from 1.5. Avoid nephrotoxic agents. Meds dosage based on GFR. 2. FEN: Metabolic alkalosis, Diamox BID. Hyperkalemia, improved, monitor. LE edema, improving / improved. Monitor lytes and volume status. 3. Acute CHF, POA: Normal LVEF, followed by Cards. 4. Severe pulmonary arterial systolic hypertension. 5. Lung mass. 6. Acute on chronic hypoxic respiratory failure: Pulmonary following. 7. Right sided Pleural effusion: S/p thoracentesis. 8. Encephalopathy. 9. Hypertension. 10. Atrial fibrillation. 11. Anemia. Objective: Patient was seen and examined at the bedside. No new complaint. Examination: General appearance: well-developed, appears stated age, obese, no distress HEENT: atraumatic Neck: neck supple, trachea midline Respiratory: Decreased Breath Sounds (bibasilar) Heart: regular, normal heart rate, S1S2, no murmur Gastrointestinal: obese, soft, bowel sounds present, not tender Integumentary: no rash, warm and dry Neurologic: confused, non-focal Ext: no edema Subjective Date of service: 07/25/19 Principal diagnosis: Ac and ch hypoxemic resp failure; lung mass; Pleural effusion; COPD; HFpEF Objective - Vital Signs Vital signs: Vital Signs - 12hr 07/24/19 07/24/19 07/24/19 21:42 21:44 22:00 Temperature Pulse Rate Pulse Rate [ 88 Anterior Bilateral Throughout] Pulse Rate [ 122 H Posterior Bilateral Throughout] Respiratory 16 Rate Respiratory 20 Rate [Anterior Bilateral Throughout] Respiratory 24 Rate [Posterior Bilateral Throughout] Blood Pressure O2 Sat by Pulse 70 L Oximetry 07/24/19 07/25/19 07/25/19 22:58 00:00 03:47 Temperature 98.1 F 97.6 F Pulse Rate 80 73 85 Pulse Rate [ Anterior Bilateral Throughout] Pulse Rate [ Posterior Bilateral Throughout] Respiratory 19 20 Rate Respiratory Rate [Anterior Bilateral Throughout] Respiratory Rate [Posterior Bilateral Throughout] Blood Pressure 167/93 167/99 O2 Sat by Pulse 100 94 Oximetry 07/25/19 07/25/19 07/25/19 07:35 07:36 08:34 Temperature 97.6 F Pulse Rate 81 Pulse Rate [ Anterior Bilateral Throughout] Pulse Rate [ 85 Posterior Bilateral Throughout] Respiratory 18 Rate Respiratory Rate [Anterior Bilateral Throughout] Respiratory 20 Rate [Posterior Bilateral Throughout] Blood Pressure 150/95 O2 Sat by Pulse 97 92 Oximetry - Lab 07/25/19 03:38 07/25/19 03:38 Most recent lab results ABG pH 7.369 pH Units (7.350-7.450) 07/24/19 09:55 ABG pCO2 59.5 mm Hg 07/24/19 09:55 ABG pO2 81.5 mm Hg (80.0-90.0) 07/24/19 09:55 ABG HCO3 33.6 mmol/L (20.0-26.0) H 07/24/19 09:55 ABG O2 Saturation 97.0 % (95.0-99.0) 07/24/19 09:55 Calcium 9.2 mg/dL (8.4-10.2) 07/25/19 03:38 Magnesium 2.10 mg/dL (1.7-2.3) 07/24/19 07:33 Medications & Allergies - Medications Allergies/Adverse Reactions: Allergies No Known Allergies Allergy (Verified 07/18/19 23:05) Home Medications: Home Medications Medication Instructions Recorded Confirmed Last Taken Type HYDROcodone/APAP 5-325 [[place] 1 each PO Q6HR PRN #12 tablet 12/17/18 07/19/19 Unknown Rx 5/325] Active Medications: Generic Name Dose Route Start Last Admin Trade Name Freq PRN Reason Stop Dose Admin Acetaminophen 650 mg 07/18/19 22:13 07/19/19 22:00 Tylenol PO 650 mg Q4H PRN Administration Pain MILD(1-3)/Fever >100.5/KENDALL Acetazolamide 500 mg 07/24/19 10:00 07/25/19 00:11 Diamox IV 07/26/19 22:01 500 mg Q12HR CHRISTINA Administration Albuterol/Ipratropium 1 ampul 07/21/19 14:00 07/25/19 07:39 Duoneb *Not For Prn Use* IH 1 ampul TIDRT CHRISTINA Administration Arformoterol Tartrate 15 mcg 07/21/19 11:45 07/25/19 07:39 Brovana Nebu IH 15 mcg Q12HRT CHRISTINA Administration Budesonide 0.5 mg 07/21/19 11:45 07/25/19 07:39 Pulmicort IH 0.5 mg Q12HRT CHRISTINA Administration Dextrose 50 ml 07/24/19 08:39 D50w (25gm) Syringe IV Q30MIN PRN Hypoglycemia Protocol Diltiazem HCl 60 mg 07/24/19 12:00 07/25/19 05:06 Cardizem PO 60 mg Q6HR CHRISTINA Administration Famotidine 20 mg 07/22/19 10:00 07/24/19 10:10 Pepcid PO 20 mg DAILY CHRISTINA Administration Hydralazine HCl 10 mg 07/23/19 16:19 07/23/19 16:43 Apresoline IV 10 mg Q6HR PRN Administration Blood Pressure Insulin Human Lispro 0 unit 07/24/19 11:30 07/24/19 21:40 Humalog SUB-Q Not Given ACHS [facility] Protocol Levofloxacin 750 mg 07/22/19 10:00 07/24/19 10:10 Levaquin PO 07/28/19 10:01 750 mg Q48HR CHRISTINA Administration Lorazepam 2 mg 07/23/19 16:22 07/24/19 17:00 Ativan IM 2 mg Q6H PRN Administration Agitation Methylprednisolone Sodium Succinate 40 mg 07/22/19 22:00 07/25/19 05:06 Solu-Medrol IV 40 mg Q8HR CHRISTINA Administration Metoclopramide HCl 10 mg 07/18/19 22:13 07/21/19 04:06 Reglan IV 10 mg Q6H PRN Administration Nausea And Vomiting Ondansetron HCl 4 mg 07/18/19 22:13 07/22/19 09:22 Zofran IV 4 mg Q8H PRN Administration Nausea And Vomiting Oxycodone/Acetaminophen 1 tab 07/18/19 22:13 07/22/19 14:21 Percocet 5/325 PO 1 tab Q6H PRN Administration Pain, Moderate (4-6) Sodium Chloride 10 ml 07/18/19 23:00 07/24/19 21:38 Sodium Chloride Flush Syringe 10 Ml IV 10 ml BID CHRISTINA Administration Sodium Chloride 10 ml 07/18/19 22:13 07/22/19 05:48 Sodium Chloride Flush Syringe 10 Ml IV 10 ml PRN PRN Administration LINE FLUSH
--- NOTE | 2019-07-25 09:54 | Progress Note ---
Assessment and Plan Assessment and plan: The patient is a 68-year-old female present with a chief complaint of shortness of breath. Patient states she is had progressive shortness of breath over the past 3 weeks. Patient admits to 4 pillow orthopnea. Patient denies chest pain or fevers. Patient states she began to cough today and has been productive of white sputum. The patient states she is developed bilateral lower extremity edema over the past 3 weeks as well. Patient has a history of CHF and states she is on a "water pill." The patient was administered Lasix 40 mg IV by EMS prior to arrival. Day#2 Some improvement Day#3 Still SOB Day#2 SOB slightly better Day#[address] chest shows RUL mass Pulmonary consult Day 4 07/21/2019. Patient seen lying on her right side requesting for immediate thoracentesis due to shortness of breath. Discussed clinical care with the patient. Will hold Lasix as renal function is getting worse. Will obtain nephrology consultation. We will give a dose of Kayexalate. Will monitor renal function and potassium levels. Day 5 07/22/2019: Patient status post thoracentesis of 700 cc of fluid removed. Respiration improved. Renal function still tenuous. Discussed with forge helper continue to hold IV Lasix acute kidney injury felt to be secondary to contrast-induced nephropathy. Xarelto still on hold as well waiting lung biopsy of right upper quadrant mass. Day 6: Patient renal function improving. Awaiting lung biopsy. She is status post 700 cc of fluid removed via thoracentesis. Also awaiting evaluation of the fluid analysis. Monitor Leukopenia. Will obtain a CT of the head. Spoke to sitter and also to the nurse, she will have the patient had a fall despite having a sitter. We will continue to monitor. May need restraints. Day 7: 07/24/2019: CT of the head is unremarkable for any acute pathology. May require ABG OR MR brain if altered mental status persist. Hold enoxaparin for planned CT-guided biopsy. Continue to hold lasix, will restart in am if ok with nephrology. Elevated glucose may be secondary to steroids. Nevertheless we will check A1c will start on sliding scale coverage at this point. fall precautions 07/24: Restart Lasix and monitor Renal function, Awaiting CT biopsy. Will restart anticoagulation once Biopsy is done. Start discharge planning, likely will need SNF due to intermittent AMS. Acute and chronic respiratory failure on home O2 at 3L/min Acute heart failure with preserved ejection fraction Atrial fibrillation RUL lung mass Pleural effusion AE-COPD Tobacco use disorder/Nicotine dependence Morbid obesity HLD (hyperlipidemia) Hyperglycemia Severe pulmonary arterial systolic hypertension Hyperkalemia History Interval history: Patient seen and examined while shortness of breath is improved. Sitting up no new complaints. Hospitalist Physical - Physical exam Narrative exam: General appearance: Present: mild respiratory distress improved compared to yesterday, well-nourished Although altered more today than yesterday. - EENT Eyes: PERRL, EOM intact ENT: hearing intact, clear oral mucosa Ears: bilateral: normal - Neck Neck: supple, normal ROM - Respiratory Respiratory effort: normal Respiratory: bilateral: CTA, rales, rhonchi - Breasts Breasts: normal - Cardiovascular Heart rate: 78 Rhythm: regular Heart Sounds: Present: S1 & S2. Absent: gallop, rub Extremities: no ischemia, pulses intact, No edema, normal color, Full ROM - Gastrointestinal General gastrointestinal: Present: soft, non-tender, non-distended, normal bowel sounds - Genitourinary Female genitourinary: normal - Integumentary Integumentary: clear, warm, dry - Musculoskeletal Musculoskeletal: 1, strength equal bilaterally - Neurologic Neurologic: moves all extremities - Psychiatric Psychiatric: memory intact, appropriate mood/affect, intact judgment & insight - Allied health notes Allied health notes reviewed: nursing, case management - Constitutional Vitals: Temp Pulse Resp BP Pulse Ox 97.6 F 81 18 150/95 92 07/25/19 07:36 07/25/19 07:36 07/25/19 07:36 07/25/19 07:36 07/25/19 08:34 General appearance: Present: mild distress, well-nourished HEART Score - HEART Score EKG: Non-specific Age: > 65 Risk factors: > 3 risk factors or hx of atherosclerotic disease Troponin: Troponin T < 0.010 ng/mL (0.00-0.029) 07/18/19 17:56 - Critical Actions Critical Actions: 4-6 pts:12-16.6% risk of adverse cardiac event. Should be admitted Results - Labs CBC & Chem 7: 07/25/19 03:38 07/25/19 03:38 Labs: Laboratory Last Values WBC 2.2 K/mm3 (4.5-11.0) L 07/25/19 03:38 RBC 3.81 M/mm3 (3.65-5.03) 07/25/19 03:38 Hgb 9.5 gm/dl (10.1-14.3) L 07/25/19 03:38 Hct 31.1 % (30.3-42.9) 07/25/19 03:38 MCV 82 fl (79-97) 07/25/19 03:38 MCH 25 pg (28-32) L 07/25/19 03:38 MCHC 31 % (30-34) 07/25/19 03:38 RDW 23.2 % (13.2-15.2) H 07/25/19 03:38 Plt Count 139 K/mm3 (140-440) L 07/25/19 03:38 Lymph % (Auto) 16.9 % (13.4-35.0) 07/21/19 04:20 [place] % (Auto) 1.4 % (0.0-7.3) 07/21/19 04:20 Eos % (Auto) 0.0 % (0.0-4.3) 07/21/19 04:20 Baso % (Auto) 0.1 % (0.0-1.8) 07/21/19 04:20 Lymph # 0.5 K/mm3 (1.2-5.4) L 07/21/19 04:20 [place] # 0.0 K/mm3 (0.0-0.8) 07/21/19 04:20 Eos # 0.0 K/mm3 (0.0-0.4) 07/21/19 04:20 Baso # 0.0 K/mm3 (0.0-0.1) 07/21/19 04:20 Add Manual Diff Complete 07/19/19 03:31 Total Counted 100 07/19/19 03:31 Seg Neutrophils % 81.6 % (40.0-70.0) H 07/21/19 04:20 Seg Neuts % (Manual) 83.0 % (40.0-70.0) H 07/19/19 03:31 Band Neutrophils % 0 % 07/19/19 03:31 Lymphocytes % (Manual) 16.0 % (13.4-35.0) 07/19/19 03:31 Reactive Lymphs % (Man) 0 % 07/19/19 03:31 Monocytes % (Manual) 1.0 % (0.0-7.3) 07/19/19 03:31 Eosinophils % (Manual) 0 % (0.0-4.3) 07/19/19 03:31 Basophils % (Manual) 0 % (0.0-1.8) 07/19/19 03:31 Metamyelocytes % 0 % 07/19/19 03:31 Myelocytes % 0 % 07/19/19 03:31 Promyelocytes % 0 % 07/19/19 03:31 Blast Cells % 0 % 07/19/19 03:31 Nucleated RBC % Not Reportable 07/19/19 03:31 Seg Neutrophils # 2.6 K/mm3 (1.8-7.7) 07/21/19 04:20 Seg Neutrophils # Man 2.4 K/mm3 (1.8-7.7) 07/19/19 03:31 Band Neutrophils # 0.0 K/mm3 07/19/19 03:31 Lymphocytes # (Manual) 0.5 K/mm3 (1.2-5.4) L 07/19/19 03:31 Abs React Lymphs (Man) 0.0 K/mm3 07/19/19 03:31 Monocytes # (Manual) 0.0 K/mm3 (0.0-0.8) 07/19/19 03:31 Eosinophils # (Manual) 0.0 K/mm3 (0.0-0.4) 07/19/19 03:31 Basophils # (Manual) 0.0 K/mm3 (0.0-0.1) 07/19/19 03:31 Metamyelocytes # 0.0 K/mm3 07/19/19 03:31 Myelocytes # 0.0 K/mm3 07/19/19 03:31 Promyelocytes # 0.0 K/mm3 07/19/19 03:31 Blast Cells # 0.0 K/mm3 07/19/19 03:31 WBC Morphology Not Reportable 07/19/19 03:31 Hypersegmented Neuts Not Reportable 07/19/19 03:31 Hyposegmented Neuts Not Reportable 07/19/19 03:31 Hypogranular Neuts Not Reportable 07/19/19 03:31 Smudge Cells Not Reportable 07/19/19 03:31 Toxic Granulation Not Reportable 07/19/19 03:31 Toxic Vacuolation Not Reportable 07/19/19 03:31 Dohle Bodies Not Reportable 07/19/19 03:31 Pelger-Huet Anomaly Not Reportable 07/19/19 03:31 Camilo Rods Not Reportable 07/19/19 03:31 Platelet Estimate Consistent w auto 07/19/19 03:31 Clumped Platelets Not Reportable 07/19/19 03:31 Plt Clumps, EDTA Not Reportable 07/19/19 03:31 Large Platelets Not Reportable 07/19/19 03:31 Giant Platelets Not Reportable 07/19/19 03:31 Platelet Satelliting Not Reportable 07/19/19 03:31 Plt Morphology Comment Not Reportable 07/19/19 03:31 RBC Morphology Not Reportable 07/19/19 03:31 Dimorphic RBCs Not Reportable 07/19/19 03:31 Polychromasia Not Reportable 07/19/19 03:31 Hypochromasia 1+ 07/19/19 03:31 Poikilocytosis Not Reportable 07/19/19 03:31 Anisocytosis 2+ 07/19/19 03:31 Microcytosis Few 07/19/19 03:31 Macrocytosis Few 07/19/19 03:31 Spherocytes Not Reportable 07/19/19 03:31 Pappenheimer Bodies Not Reportable 07/19/19 03:31 Sickle Cells Not Reportable 07/19/19 03:31 Target Cells Not Reportable 07/19/19 03:31 Tear Drop Cells Not Reportable 07/19/19 03:31 Ovalocytes Few 07/19/19 03:31 Helmet Cells Not Reportable 07/19/19 03:31 Puir-Kurten Bodies Not Reportable 07/19/19 03:31 Corona Rings Not Reportable 07/19/19 03:31 Jasper Cells Not Reportable 07/19/19 03:31 Bite Cells Not Reportable 07/19/19 03:31 Crenated Cell Not Reportable 07/19/19 03:31 Elliptocytes Not Reportable 07/19/19 03:31 Acanthocytes (Spur) Not Reportable 07/19/19 03:31 Rouleaux Not Reportable 07/19/19 03:31 Hemoglobin C Crystals Not Reportable 07/19/19 03:31 Schistocytes Rare 07/19/19 03:31 Malaria parasites Not Reportable 07/19/19 03:31 Colby Bodies Not Reportable 07/19/19 03:31 Hem Pathologist Commnt No 07/19/19 03:31 PT 17.3 Sec. (12.2-14.9) H 07/21/19 11:43 INR 1.41 (0.87-1.13) H 07/21/19 11:43 ABG pH 7.369 pH Units (7.350-7.450) 07/24/19 09:55 ABG pCO2 59.5 mm Hg 07/24/19 09:55 ABG pO2 81.5 mm Hg (80.0-90.0) 07/24/19 09:55 ABG HCO3 33.6 mmol/L (20.0-26.0) H 07/24/19 09:55 ABG O2 Saturation 97.0 % (95.0-99.0) 07/24/19 09:55 ABG O2 Content 12.7 (0.0-44) 07/24/19 09:55 ABG Base Excess 7.0 mmol/L (-2.0-3.0) H 07/24/19 09:55 ABG Hemoglobin 9.5 gm/dl (12.0-16.0) L 07/24/19 09:55 ABG Carboxyhemoglobin 2.0 % (0.0-5.0) 07/24/19 09:55 ABG Methemoglobin 0.3 % (0.0-1.5) 07/24/19 09:55 Oxyhemoglobin 94.7 % (95.0-99.0) L 07/24/19 09:55 FiO2 32 % 07/24/19 09:55 Sodium 139 mmol/L (137-145) 07/25/19 03:38 Potassium 4.1 mmol/L (3.6-5.0) 07/25/19 03:38 Chloride 94.9 mmol/L (98-107) L 07/25/19 03:38 Carbon Dioxide 31 mmol/L (22-30) H 07/25/19 03:38 Anion Gap 17 mmol/L 07/25/19 03:38 BUN 39 mg/dL (7-17) H 07/25/19 03:38 Creatinine 1.4 mg/dL (0.7-1.2) H 07/25/19 03:38 Estimated GFR 45 ml/min 07/25/19 03:38 BUN/Creatinine Ratio 28 % 07/25/19 03:38 Glucose 179 mg/dL (65-100) H 07/25/19 03:38 POC Glucose 187 (70-105) H 07/25/19 07:44 Hemoglobin A1c 5.2 % (4-6) 07/19/19 03:31 Calcium 9.2 mg/dL (8.4-10.2) 07/25/19 03:38 Magnesium 2.10 mg/dL (1.7-2.3) 07/24/19 07:33 Total Bilirubin 0.70 mg/dL (0.1-1.2) 07/23/19 05:19 AST 12 units/L (5-40) 07/23/19 05:19 ALT 16 units/L (7-56) 07/23/19 05:19 Alkaline Phosphatase 126 units/L (35-129) 07/23/19 05:19 Ammonia 53.0 umol/L (25-60) 07/23/19 16:32 Total Creatine Kinase 67 units/L (30-135) 07/18/19 17:56 CK-MB (CK-2) 2.4 ng/mL (0.0-4.0) 07/18/19 17:56 CK-MB (CK-2) Rel Index 3.5 (0-4) 07/18/19 17:56 Troponin T < 0.010 ng/mL (0.00-0.029) 07/18/19 17:56 NT-Pro-B Natriuret Pep 3321 pg/mL (0-900) H 07/18/19 17:56 Total Protein 6.9 g/dL (6.3-8.2) 07/23/19 05:19 Albumin 3.7 g/dL (3.9-5) L 07/23/19 05:19 Albumin/Globulin Ratio 1.2 % 07/23/19 05:19 Fluid Type Pleural 07/21/19 14:45 Fluid Color Yellow 07/21/19 14:45 Fluid Appearance Hazy 07/21/19 14:45 Fluid WBC 443 /mm3 07/21/19 14:45 Fluid RBC 5250 /mm3 07/21/19 14:45 Fluid Seg Neutrophils 8.0 % 07/21/19 14:45 Fluid Lymphocytes 63.0 % 07/21/19 14:45 Fluid Reactive Lymphs 0 % 07/21/19 14:45 Fluid Monocytes 29.0 % 07/21/19 14:45 Fluid Eosinophils 0 % 07/21/19 14:45 Fluid Basophils 0 % 07/21/19 14:45 AFB Identification 07/21/19 14:45 - Diagnostic Impressions Diagnostic Impressions: Echocardiogram 07/18/19 22:35 Transthoracic Echocardiogram Indication: SOB BP: 154/91 HR: 92 Conclusions *The study is technically limited due to poor acoustic windows. *Mild concentric left ventricular hypertrophy is observed. *Global left ventricular systolic function is normal. *The estimated ejection fraction is 50-55%. *Abnormal left ventricular diastolic function is observed. *The left atrium is severely dilated. *The right ventricle is severely dilated. *There is mild aortic regurgitation. *There is evidence of severe pulmonary hypertension. Findings Procedure Info: The study quality is technically difficult. The study is technically limited due to poor acoustic windows. Left Ventricle: The left ventricular chamber size is normal. Mild concentric left ventricular hypertrophy is observed. Global left ventricular systolic function is normal. The estimated ejection fraction is 50-55%. Abnormal left ventricular diastolic function is observed. Abnormal left ventricular diastolic filling is observed, consistent with impaired relaxation. Left Atrium: The left atrium is severely dilated. Right Ventricle: The right ventricle is severely dilated. The right ventricular global systolic function is moderately reduced. Right Atrium: The right atrial cavity size is severely dilated. Aortic Valve: Mild aortic leaflet calcification is visualized. There is mild aortic regurgitation. Mitral Valve: There is mitral annular calcification. Mild mitral leaflet calcification is visualized. There is trace of mitral regurgitation. Tricuspid Valve: The tricuspid valve leaflets are normal. There is moderate to severe tricuspid regurgitation. The right ventricular systolic pressure is calculated at 72 mmHg. There is evidence of severe pulmonary hypertension. Pulmonic Valve: The pulmonic valve is not well visualized. The pulmonic valve appears normal. There is mild pulmonic regurgitation. Pericardium: A pericardial effusion is visualized. There is a minimial pericardial effusion. Aorta: The aorta appears normal. Venous: The inferior vena cava is dilated. There is no change in the dimension of the inferior vena cava with respiration consistent with markedly increased right atrial pressure. Measurements Chambers 2D Name Value Normal Range IVSd (2D) 1.27 cm (0.6 - 1.1) LVPWd (2D) 1.22 cm (0.6 - 1.1) LVIDd (2D) 4.71 cm (3.7 - 5.6) LVIDs (2D) 3.77 cm (2 - 3.8) LV FS (2D) 20.09 % - EF Teichholz (2D) 41.13 % - Ao root diameter (2D) 3.52 cm (2 - 3.7) Volumes/Mass Name Value Normal Range LA ESV SP 4CH (A/L) 107.42 ml - LA ESV SP 2CH (A/L) 135.51 ml - LA ESV BP (A/L) 128.25 ml - LA ESV BP (A/L) index 63.49 ml/m2 - LA ESV SP 4CH (MOD) 94.91 ml - LA ESV SP 2CH (MOD) 126.36 ml - LA ESV BP (MOD) 115.15 ml - LA ESV BP (MOD) index 57.01 ml/m2 - Diastolic/Systolic Function Name Value Normal Range MV E-wave Vmax 0.95 m/sec - MV deceleration time 148.19 msec - Aortic Valve Name Value Normal Range AV Vmax 1.53 m/sec - AV VTI 26.2 cm - AV peak gradient 9.37 mmHg - AV mean gradient 5.14 mmHg - LVOT diameter 2.34 cm - LVOT Vmax 1.03 m/sec - LVOT VTI 15.48 cm - LVOT peak gradient 4.28 mmHg - LVOT mean gradient 2.19 mmHg - SV LVOT 66.43 ml - JULIEN (continuity Vmax) 2.9 cm2 - JULIEN (continuity VTI) 2.54 cm2 - AR PHT 945.01 msec - AR peak gradient 78.01 mmHg - Ascending Ao 3.94 cm - Tricuspid Valve Name Value Normal Range TR Vmax 3.75 m/sec - TR peak gradient 56 mmHg - RAP 15 mmHg - RVSP 72 mmHg - IVC diameter 2.9 cm (1.2 - 2.3) Pulmonic Valve/Qp:Qs Name Value Normal Range PV Vmax 1.06 m/sec - PV peak gradient 4.52 mmHg - TX end-diastolic Vmax 2.29 m/sec - PV acceleration time 76.12 msec - Hopson/IV: Voiding Method Bedside Commode IV Catheter Type [Left Wrist] INT / Saline Lock IV Catheter Type [Right INT / Saline Lock Forearm] IV Catheter Type [Left INT / Saline Lock Antecubital] Active Medications - Current Medications Current Medications: Generic Name Dose Route Start Last Admin Trade Name Freq PRN Reason Stop Dose Admin Acetaminophen 650 mg 07/18/19 22:13 07/19/19 22:00 Tylenol PO 650 mg Q4H PRN Administration Pain MILD(1-3)/Fever >100.5/KENDALL Acetazolamide 500 mg 07/24/19 10:00 07/25/19 00:11 Diamox IV 07/26/19 22:01 500 mg Q12HR CHRISTINA Administration Albuterol/Ipratropium 1 ampul 07/21/19 14:00 07/25/19 07:39 Duoneb *Not For Prn Use* IH 1 ampul TIDRT CHRISTINA Administration Arformoterol Tartrate 15 mcg 07/21/19 11:45 07/25/19 07:39 Brovana Nebu IH 15 mcg Q12HRT CHRISTINA Administration Budesonide 0.5 mg 07/21/19 11:45 07/25/19 07:39 Pulmicort IH 0.5 mg Q12HRT CHRISTINA Administration Dextrose 50 ml 07/24/19 08:39 D50w (25gm) Syringe IV Q30MIN PRN Hypoglycemia Protocol Diltiazem HCl 60 mg 07/24/19 12:00 07/25/19 05:06 Cardizem PO 60 mg Q6HR CHRISTINA Administration Famotidine 20 mg 07/22/19 10:00 07/24/19 10:10 Pepcid PO 20 mg DAILY CHRISTINA Administration Hydralazine HCl 10 mg 07/23/19 16:19 07/23/19 16:43 Apresoline IV 10 mg Q6HR PRN Administration Blood Pressure Insulin Human Lispro 0 unit 07/24/19 11:30 07/24/19 21:40 Humalog SUB-Q Not Given ACHS CHRISTINA Protocol Levofloxacin 750 mg 07/22/19 10:00 07/24/19 10:10 Levaquin PO 07/28/19 10:01 750 mg Q48HR CHRISTINA Administration Lorazepam 2 mg 07/23/19 16:22 07/24/19 17:00 Ativan IM 2 mg Q6H PRN Administration Agitation Methylprednisolone Sodium Succinate 40 mg 07/22/19 22:00 07/25/19 05:06 Solu-Medrol IV 40 mg Q8HR CHRISTINA Administration Metoclopramide HCl 10 mg 07/18/19 22:13 07/21/19 04:06 Reglan IV 10 mg Q6H PRN Administration Nausea And Vomiting Ondansetron HCl 4 mg 07/18/19 22:13 07/22/19 09:22 Zofran IV 4 mg Q8H PRN Administration Nausea And Vomiting Oxycodone/Acetaminophen 1 tab 07/18/19 22:13 07/22/19 14:21 Percocet 5/325 PO 1 tab Q6H PRN Administration Pain, Moderate (4-6) Sodium Chloride 10 ml 07/18/19 23:00 07/24/19 21:38 Sodium Chloride Flush Syringe 10 Ml IV 10 ml BID CHRISTINA Administration Sodium Chloride 10 ml 07/18/19 22:13 07/22/19 05:48 Sodium Chloride Flush Syringe 10 Ml IV 10 ml PRN PRN Administration LINE FLUSH
[2019-07-25] MEDS: FUROSEMIDE 40 MG TAB PO SCH (12:36)
[2019-07-25] MEDS: FAMOTIDINE 20 MG TAB PO SCH (12:36)
[2019-07-25] MEDS: LORazepam 2 MG/ML VIAL IM PRN (16:16)
[2019-07-26] MEDS: dilTIAZem 60 MG TAB PO SCH ×5 (01:56→23:11)
[2019-07-26 05:15] LABS: Hematocrit 29.9 % (30.3-42.9); Hemoglobin 9.2 gm/dl (10.1-14.3); Mean Corpuscular HGB Conc 31 % (30-34); Mean Corpuscular Volume 81 fl (79-97); Platelet Count 152 K/mm3 (140-440); Red Blood Count 3.71 M/mm3 (3.65-5.03)
[2019-07-26 05:21] LABS: Red Cell Distribution Width 23.4 % (13.2-15.2)
[2019-07-26 05:28] LABS: Calcium 9.3 mg/dL (8.4-10.2)
[2019-07-26] MEDS: methylPREDNISolone Sod Succinate 40 MG/1 ML INJ IV SCH ×3 (06:38→22:26)
--- NOTE | 2019-07-26 06:44 | Ultrasound Report ---
ULTRASOUND RENAL INDICATION: Acute renal failure.. COMPARISON: No relevant prior imaging study available. FINDINGS: RIGHT KIDNEY: Size: 9.2 cm. Echogenicity: Moderately echogenic. Cortical thickness: 1.3 cm. Hydronephrosis: None. Cyst or mass: None. Stones: None. LEFT KIDNEY: Size: 9.9 cm. Echogenicity: Moderate increased echotexture. Cortical thickness: 1.7 cm. Hydronephrosis: None. Cyst or mass: None. Stones: None. Urinary Bladder: No significant abnormality. Free Fluid: Small amount of ascites. Additional Findings: None. IMPRESSION 1. Echogenic kidneys characteristic for medical renal disease. 2. Small amount of ascites Signer Name: Brown Mckeon MD Signed: 07/26/2019 6:40 AM Workstation Name: [id number]
[2019-07-26] MEDS ORDERED: POTASSIUM CHLORIDE ER 20 MEQ TAB PO NR (08:02)
[2019-07-26] MEDS: INSULIN LISPRO 100 UNIT/ML SUB-Q SCH ×4 (08:26→22:38)
[2019-07-26] MEDS: FAMOTIDINE 20 MG TAB PO SCH (09:14)
[2019-07-26] MEDS: FUROSEMIDE 40 MG TAB PO SCH (09:14)
[2019-07-26] MEDS: levoFLOXacin 750 MG TAB PO SCH (09:16)
[2019-07-26] MEDS: IPRATROPIUM/ALBUTEROL SULFATE 3 ML AMPUL.NEB IH SCH ×3 (10:24→21:52)
[2019-07-26] MEDS: ARFORMOTEROL 15 MCG/2 ML NEBU IH SCH ×2 (10:24→21:52)
[2019-07-26] MEDS: BUDESONIDE 0.5 MG/2 ML NEBU IH SCH ×2 (10:24→21:52)
--- NOTE | 2019-07-26 10:30 | Progress Note ---
Assessment and Plan PO lasix 40mg daily resumed. Monitor renal indices. patient is awaiting thoracentesis with lung biopsy, restart oral anticoagulation once biopsy is done. Cont PO cardizem. Pt restrained, confused, sitter at bedside. Pending brain MRI. Consider neurology and/or psych eval per primary. D/w primary team. The patient has been seen in conjunction with Dr. Santacruz who agrees with the assessment and plan of care. - Patient Problems (1) Acute heart failure with preserved ejection fraction Current Visit: Yes Status: Acute (2) Lung mass Current Visit: Yes Status: Chronic (3) Severe pulmonary arterial systolic hypertension Current Visit: Yes Status: Chronic (4) Pleural effusion, right Current Visit: Yes Status: Acute (5) COPD (chronic obstructive pulmonary disease) Current Visit: Yes Status: Chronic Qualifiers: Emphysema type: unspecified (6) Acute on chronic respiratory failure Current Visit: Yes Status: Acute (7) Accelerated hypertension Current Visit: Yes Status: Acute (8) Atrial fibrillation Current Visit: Yes Status: Chronic (9) Anemia Current Visit: Yes Status: Acute (10) Tobacco use Current Visit: Yes Status: Chronic (11) AMS (altered mental status) Current Visit: Yes Status: Acute Subjective Date of service: 07/26/19 Principal diagnosis: Chf exacerbation,RUL mass,PNA Interval history: Pt resting in bed, restrained, confused, sitter at bedside. no current cardiac complaints. in AFib with CVR on tele. Objective Last Vital Signs Temp 97.4 F L 07/26/19 04:33 Pulse 90 07/26/19 06:00 Resp 17 07/26/19 04:33 BP 166/91 07/26/19 04:33 Pulse Ox 89 07/26/19 04:33 - Physical Examination General: Other (confused, restrained) HEENT: Positive: PERRL Neck: Positive: neck supple, trachea midline Cardiac: Positive: irregularly irregular, S1/S2 Lungs: Positive: Decreased Breath Sounds Neuro: Positive: Grossly Intact Abdomen: Negative: Tender Skin: Negative: Rash Musculoskeletal: No Pain Extremities: Absent: edema - Labs and Meds CBC 07/26/19 Range/Units 04:49 WBC 3.1 L (4.5-11.0) K/mm3 RBC 3.71 (3.65-5.03) M/mm3 Hgb 9.2 L (10.1-14.3) gm/dl Hct 29.9 L (30.3-42.9) % Plt Count 152 (140-440) K/mm3 Comprehensive Metabolic Panel 07/26/19 Range/Units 04:49 Sodium 135 L (137-145) mmol/L Potassium 3.5 L (3.6-5.0) mmol/L Chloride 90.1 L (98-107) mmol/L Carbon Dioxide 32 H (22-30) mmol/L BUN 38 H (7-17) mg/dL Creatinine 1.4 H (0.7-1.2) mg/dL Glucose 201 H (65-100) mg/dL Calcium 9.3 (8.4-10.2) mg/dL - Imaging and Cardiology EKG: report reviewed Echo: report reviewed (Normal LV function severe pulmonary hypertension) Holter: report reviewed - Telemetry EKG Rhythm: Atrial Fibrillation - Allied health notes Allied health notes reviewed: nursing
[2019-07-26] MEDS: LORazepam 2 MG/ML VIAL IM PRN ×2 (11:06→22:41)
--- NOTE | 2019-07-26 11:06 | Progress Note ---
Assessment and Plan Patient sleepy. Resting on 3 litres nasal canula. O2 saturation 95%. Pleural fluid chemistry, cultures, cytology still pending or not send the samples to the lab. Patient scheduled for percutaneous needle biopsy of chest lesion which is still pending.. - Patient Problems (1) Pleural effusion, right Current Visit: Yes Status: Acute Plan to address problem: Patient undergone Right Thoracentesis 07/21/19 Patient undergone thoracentesis Pleural fluid showed WBC 443. RBC 5250 Remaining othe pleural fluid results pending. (2) COPD (chronic obstructive pulmonary disease) Current Visit: Yes Status: Chronic Qualifiers: Emphysema type: unspecified Plan to address problem: O2 3 litres via nasal canula. Albuterol/atrovent aerosol treatments q 6 hours. Continue I/V solumedrol Continue Levaquin Patient is on S/C Heparin. Continue Famotidine. (3) Lung mass Current Visit: Yes Status: Chronic Plan to address problem: Patient scheduled for percutaneous needle biopsy of Right chest lesion under CT Guidance. (4) Severe pulmonary arterial systolic hypertension Current Visit: Yes Status: Chronic Plan to address problem: Likely secondary to COPD and CHF. Optimize treatment for both dose conditions. (5) Tobacco use Current Visit: Yes Status: Chronic Plan to address problem: Counselled to stop smoking. (6) Acute heart failure with preserved ejection fraction Current Visit: Yes Status: Acute Plan to address problem: Management as per cardiology. (7) Acute on chronic respiratory failure Current Visit: Yes Status: Acute Plan to address problem: O2 3 litres via nasal canula. Albuterol/atrovent aerosol treatments q 6 hours. Continue I/V solumedrol Continue Levaquin Patient is on S/C Heparin. Continue Famotidine. (8) Atrial fibrillation Current Visit: Yes Status: Chronic Plan to address problem: Managent as per cardiology. (9) HLD (hyperlipidemia) Current Visit: Yes Status: Chronic Qualifiers: Hyperlipidemia type: mixed hyperlipidemia Qualified Code(s): E78.2 - Mixed hyperlipidemia Plan to address problem: Management as per primary care. (10) HTN (hypertension) Current Visit: Yes Status: Chronic Qualifiers: Hypertension type: essential hypertension Qualified Code(s): I10 - Essential (primary) hypertension Plan to address problem: Management as per primary care. Subjective Date of service: 07/26/19 Principal diagnosis: Chf exacerbation,RUL mass,PNA Interval history: Patient sleepy. Resting on 3 litres nasal canula. O2 saturation 95%. Pleural fluid chemistry, cultures, cytology still pending or not send the samples to the lab. Patient scheduled for percutaneous needle biopsy of chest lesion which is still pending. Objective Vital Signs - 12hr 07/26/19 07/26/19 07/26/19 00:06 04:33 06:00 Temperature 97.6 F 97.4 F L Pulse Rate 80 88 90 Respiratory 17 17 Rate Blood Pressure 165/102 166/91 O2 Sat by Pulse 94 89 Oximetry Constitutional: no acute distress, asleep Eyes: non-icteric ENT: oropharynx moist Neck: supple, no lymphadenopathy, no JVD Effort: mildly labored Ascultation: Right: diminished breath sounds, Bilateral: wheezes (Rhonchi ) Percussion: Right: dull (base) Cardiovascular: irregular rhythm, other (S1,S2, no murmurs) Gastrointestinal: normoactive bowel sounds, soft, non-tender Integumentary: normal Extremities: no cyanosis, edema Neurologic: normal mental status, non-focal exam, pupils equal and round, CN II- XII normal, motor strength normal and Psychiatric: mood appropriate, affect normal CBC and BMP: 07/26/19 04:49 07/26/19 04:49 ABG, PT/INR, D-dimer: ABG ABG pH 7.369 pH Units (7.350-7.450) 07/24/19 09:55 ABG pCO2 59.5 mm Hg 07/24/19 09:55 ABG pO2 81.5 mm Hg (80.0-90.0) 07/24/19 09:55 ABG O2 Saturation 97.0 % (95.0-99.0) 07/24/19 09:55 PT/INR, D-dimer PT 17.3 Sec. (12.2-14.9) H 07/21/19 11:43 INR 1.41 (0.87-1.13) H 07/21/19 11:43 Abnormal lab findings: Abnormal Labs 07/18/19 07/18/19 07/19/19 17:56 17:56 03:31 WBC 2.9 L RBC 3.49 L Hgb 9.4 L 8.8 L Hct 28.8 L MCH 25 L 25 L RDW 25.0 H 24.5 H Plt Count Lymph # Seg Neutrophils % Seg Neuts % (Manual) 87.0 H 83.0 H Lymphocytes % (Manual) 10.0 L Lymphocytes # (Manual) 0.5 L 0.5 L PT INR ABG HCO3 ABG Base Excess ABG Hemoglobin Oxyhemoglobin Sodium Potassium Chloride 96.2 L Carbon Dioxide BUN Creatinine Glucose 112 H POC Glucose Alkaline Phosphatase 149 H NT-Pro-B Natriuret Pep 3321 H Albumin 3.8 L 07/19/19 07/20/19 07/20/19 03:31 03:32 03:32 WBC RBC 3.54 L Hgb 8.9 L Hct 29.5 L MCH 25 L RDW 23.6 H Plt Count Lymph # Seg Neutrophils % Seg Neuts % (Manual) Lymphocytes % (Manual) Lymphocytes # (Manual) PT INR ABG HCO3 ABG Base Excess ABG Hemoglobin Oxyhemoglobin Sodium Potassium 5.3 H D Chloride 96.3 L 96.0 L Carbon Dioxide 31 H BUN 24 H Creatinine 1.5 H Glucose 128 H 110 H POC Glucose Alkaline Phosphatase 148 H NT-Pro-B Natriuret Pep Albumin 07/21/19 07/21/19 07/21/19 04:20 04:20 11:43 WBC 3.2 L RBC Hgb 9.5 L Hct MCH 25 L RDW 23.6 H Plt Count Lymph # 0.5 L Seg Neutrophils % 81.6 H Seg Neuts % (Manual) Lymphocytes % (Manual) Lymphocytes # (Manual) PT 17.3 H INR 1.41 H ABG HCO3 ABG Base Excess ABG Hemoglobin Oxyhemoglobin Sodium 136 L Potassium 5.6 H Chloride 94.5 L Carbon Dioxide BUN 32 H Creatinine 1.8 H Glucose 133 H POC Glucose Alkaline Phosphatase 138 H NT-Pro-B Natriuret Pep Albumin 3.6 L 07/22/19 07/23/19 07/23/19 07:45 05:19 05:19 WBC 2.2 L RBC Hgb 9.2 L Hct 29.9 L MCH 25 L RDW 22.8 H Plt Count Lymph # Seg Neutrophils % Seg Neuts % (Manual) Lymphocytes % (Manual) Lymphocytes # (Manual) PT INR ABG HCO3 ABG Base Excess ABG Hemoglobin Oxyhemoglobin Sodium 135 L Potassium Chloride 92.5 L 91.1 L Carbon Dioxide 31 H BUN 41 H 41 H Creatinine 1.9 H 1.6 H Glucose 157 H 176 H POC Glucose Alkaline Phosphatase NT-Pro-B Natriuret Pep Albumin 3.7 L 07/24/19 07/24/19 07/24/19 07:33 09:55 12:30 WBC RBC Hgb Hct MCH RDW Plt Count Lymph # Seg Neutrophils % Seg Neuts % (Manual) Lymphocytes % (Manual) Lymphocytes # (Manual) PT INR ABG HCO3 33.6 H ABG Base Excess 7.0 H ABG Hemoglobin 9.5 L Oxyhemoglobin 94.7 L Sodium 136 L Potassium Chloride 91.8 L Carbon Dioxide 34 H BUN 40 H Creatinine 1.6 H Glucose 214 H POC Glucose 145 H Alkaline Phosphatase NT-Pro-B Natriuret Pep Albumin 07/24/19 07/24/19 07/25/19 19:00 20:31 03:38 WBC RBC Hgb Hct MCH RDW Plt Count Lymph # Seg Neutrophils % Seg Neuts % (Manual) Lymphocytes % (Manual) Lymphocytes # (Manual) PT INR ABG HCO3 ABG Base Excess ABG Hemoglobin Oxyhemoglobin Sodium Potassium Chloride 94.9 L Carbon Dioxide 31 H BUN 39 H Creatinine 1.4 H Glucose 179 H POC Glucose 180 H 169 H Alkaline Phosphatase NT-Pro-B Natriuret Pep Albumin 07/25/19 07/25/19 07/25/19 03:38 07:44 12:27 WBC 2.2 L RBC Hgb 9.5 L Hct MCH 25 L RDW 23.2 H Plt Count 139 L Lymph # Seg Neutrophils % Seg Neuts % (Manual) Lymphocytes % (Manual) Lymphocytes # (Manual) PT INR ABG HCO3 ABG Base Excess ABG Hemoglobin Oxyhemoglobin Sodium Potassium Chloride Carbon Dioxide BUN Creatinine Glucose POC Glucose 187 H 245 H Alkaline Phosphatase NT-Pro-B Natriuret Pep Albumin 07/25/19 07/25/19 07/26/19 16:17 21:52 04:49 WBC 3.1 L RBC Hgb 9.2 L Hct 29.9 L MCH 25 L RDW 23.4 H Plt Count Lymph # Seg Neutrophils % Seg Neuts % (Manual) Lymphocytes % (Manual) Lymphocytes # (Manual) PT INR ABG HCO3 ABG Base Excess ABG Hemoglobin Oxyhemoglobin Sodium Potassium Chloride Carbon Dioxide BUN Creatinine Glucose POC Glucose 290 H 190 H Alkaline Phosphatase NT-Pro-B Natriuret Pep Albumin 07/26/19 07/26/19 04:49 07:27 WBC RBC Hgb Hct MCH RDW Plt Count Lymph # Seg Neutrophils % Seg Neuts % (Manual) Lymphocytes % (Manual) Lymphocytes # (Manual) PT INR ABG HCO3 ABG Base Excess ABG Hemoglobin Oxyhemoglobin Sodium 135 L Potassium 3.5 L Chloride 90.1 L Carbon Dioxide 32 H BUN 38 H Creatinine 1.4 H Glucose 201 H POC Glucose 233 H Alkaline Phosphatase NT-Pro-B Natriuret Pep Albumin Allied health notes reviewed: nursing
--- NOTE | 2019-07-26 14:25 | Progress Note ---
Assessment and Plan 1. Acute kidney injury: [place] in setting of contrast induced nephropathy. Renal US negative for hydro. Urine studies ordered. Monitor renal function. Creatinine level 1.4 from 1.4 from 1.6 from 1.6 from 1.9 from 1.8 from 1.5. Avoid nephrotoxic agents. Meds dosage based on GFR. 2. FEN: Metabolic alkalosis, on Diamox. Hypokalemia, replete K, monitor. LE edema, improved. Monitor lytes and volume status. 3. Acute CHF, POA: Normal LVEF, followed by Cards. 4. Severe pulmonary arterial systolic hypertension. 5. Lung mass. 6. Acute on chronic hypoxic respiratory failure: Pulmonary following. 7. Right sided Pleural effusion: S/p thoracentesis. 8. Encephalopathy. 9. Hypertension. 10. Atrial fibrillation. 11. Anemia. Objective: Patient was seen and examined at the bedside. No new complaint. Examination: General appearance: well-developed, appears stated age, obese, no distress, on restrains HEENT: atraumatic Neck: neck supple, trachea midline Respiratory: Decreased Breath Sounds (bibasilar) Heart: regular, normal heart rate, S1S2, no murmur Gastrointestinal: obese, soft, bowel sounds present, not tender Integumentary: no rash, warm and dry Neurologic: confused, non-focal Ext: no edema Subjective Date of service: 07/26/19 Principal diagnosis: Chf exacerbation,RUL mass,PNA Objective - Vital Signs Vital signs: Vital Signs - 12hr 07/26/19 07/26/19 04:33 06:00 Temperature 97.4 F L Pulse Rate 88 90 Respiratory 17 Rate Blood Pressure 166/91 O2 Sat by Pulse 89 Oximetry - Lab 07/26/19 04:49 07/26/19 04:49 Most recent lab results ABG pH 7.369 pH Units (7.350-7.450) 07/24/19 09:55 ABG pCO2 59.5 mm Hg 07/24/19 09:55 ABG pO2 81.5 mm Hg (80.0-90.0) 07/24/19 09:55 ABG HCO3 33.6 mmol/L (20.0-26.0) H 07/24/19 09:55 ABG O2 Saturation 97.0 % (95.0-99.0) 07/24/19 09:55 Calcium 9.3 mg/dL (8.4-10.2) 07/26/19 04:49 Magnesium 2.10 mg/dL (1.7-2.3) 07/24/19 07:33 Medications & Allergies - Medications Allergies/Adverse Reactions: Allergies No Known Allergies Allergy (Verified 07/18/19 23:05) Home Medications: Home Medications Medication Instructions Recorded Confirmed Last Taken Type HYDROcodone/APAP 5-325 [[place] 1 each PO Q6HR PRN #12 tablet 12/17/18 07/19/19 Unknown Rx 5/325] Active Medications: Generic Name Dose Route Start Last Admin Trade Name Freq PRN Reason Stop Dose Admin Acetaminophen 650 mg 07/18/19 22:13 07/19/19 22:00 Tylenol PO 650 mg Q4H PRN Administration Pain MILD(1-3)/Fever >100.5/KENDALL Acetazolamide 500 mg 07/24/19 10:00 07/26/19 09:14 Diamox IV 07/26/19 22:01 500 mg Q12HR CHRISTINA Administration Albuterol/Ipratropium 1 ampul 07/21/19 14:00 07/26/19 10:24 Duoneb *Not For Prn Use* IH 1 ampul TIDRT CHRISTINA Administration Arformoterol Tartrate 15 mcg 07/21/19 11:45 07/26/19 10:24 Brovana Nebu IH 15 mcg Q12HRT CHRISTINA Administration Budesonide 0.5 mg 07/21/19 11:45 07/26/19 10:24 Pulmicort IH 0.5 mg Q12HRT CHRISTINA Administration Dextrose 50 ml 07/24/19 08:39 D50w (25gm) Syringe IV Q30MIN PRN Hypoglycemia Protocol Diltiazem HCl 60 mg 07/24/19 12:00 07/26/19 06:38 Cardizem PO 60 mg Q6HR CHRISTINA Administration Famotidine 20 mg 07/22/19 10:00 07/26/19 09:14 Pepcid PO 20 mg DAILY CHRISTINA Administration Furosemide 40 mg 07/25/19 10:00 07/26/19 09:14 Lasix PO 40 mg QDAY CHRISTINA Administration Hydralazine HCl 10 mg 07/23/19 16:19 07/23/19 16:43 Apresoline IV 10 mg Q6HR PRN Administration Blood Pressure Insulin Human Lispro 0 unit 07/24/19 11:30 07/26/19 13:31 Humalog SUB-Q 4 unit ACHS CHRISTINA Administration Protocol Levofloxacin 750 mg 07/22/19 10:00 07/26/19 09:16 Levaquin PO 07/28/19 10:01 750 mg Q48HR CHRISTINA Administration Lorazepam 2 mg 07/23/19 16:22 07/26/19 11:06 Ativan IM 2 mg Q6H PRN Administration Agitation Methylprednisolone Sodium Succinate 40 mg 07/22/19 22:00 07/26/19 13:32 Solu-Medrol IV 40 mg Q8HR CHRISTINA Administration Metoclopramide HCl 10 mg 07/18/19 22:13 07/21/19 04:06 Reglan IV 10 mg Q6H PRN Administration Nausea And Vomiting Ondansetron HCl 4 mg 07/18/19 22:13 07/22/19 09:22 Zofran IV 4 mg Q8H PRN Administration Nausea And Vomiting Oxycodone/Acetaminophen 1 tab 07/18/19 22:13 07/22/19 14:21 Percocet 5/325 PO 1 tab Q6H PRN Administration Pain, Moderate (4-6) Sodium Chloride 10 ml 07/18/19 23:00 07/26/19 09:15 Sodium Chloride Flush Syringe 10 Ml IV 10 ml BID CHRISTINA Administration Sodium Chloride 10 ml 07/18/19 22:13 07/22/19 05:48 Sodium Chloride Flush Syringe 10 Ml IV 10 ml PRN PRN Administration LINE FLUSH
--- NOTE | 2019-07-26 16:24 | Progress Note ---
Assessment and Plan Assessment and plan: --Acute heart failure with preserved ejection fraction Current Visit: Yes Status: Acute Management as per cardiology. --Acute on chronic respiratory failure Current Visit: Yes Status: Acute O2 3 litres via nasal canula. Albuterol/atrovent aerosol treatments q 6 hours. Continue I/V solumedrol Continue Levaquin Patient is on S/C Heparin. Continue Famotidine. -- Atrial fibrillation Current Visit: Yes Status: Chronic Managent as per cardiology. Patient is on S/C Lovenox. --HLD (hyperlipidemia) Current Visit: Yes Status: Chronic Management as per primary care. --HTN (hypertension) Current Visit: Yes Status: Chronic Management as per primary care. -- Pleural effusion, right Current Visit: Yes Status: Acute Patient undergone Right Thoracentesis 07/21/19 Patient undergone thoracentesis Pleural fluid showed WBC 443. RBC 5250 Remaining othe pleural fluid results pending. -- COPD (chronic obstructive pulmonary disease) Current Visit: Yes Status: Chronic O2 3 litres via nasal canula. Albuterol/atrovent aerosol treatments q 6 hours. Continue I/V solumedrol Continue Levaquin Patient is on S/C Heparin. Continue Famotidine. --Lung mass Current Visit: Yes Status: Chronic Patient scheduled for percutaneous needle biopsy of Right chest lesion under CT Guidance. --Severe pulmonary arterial systolic hypertension Current Visit: Yes Status: Chronic Likely secondary to COPD and CHF. Optimize treatment for both dose conditions. --Tobacco use Current Visit: Yes Status: Chronic Counselled to stop smoking. History Interval history: Patient seen and examined at bedside this morning Patient's chart and medical records reviewed Patient is confused, restraint for safety Obese female patient not in acute distress Vital signs noted Hospitalist Physical - Constitutional Vitals: Temp Pulse Resp BP Pulse Ox 97.4 F L 99 H 22 162/98 95 07/26/19 15:41 07/26/19 15:41 07/26/19 15:41 07/26/19 15:41 07/26/19 15:41 General appearance: Present: mild distress, well-nourished - EENT Eyes: Present: PERRL, EOM intact - Neck Neck: Present: supple, normal ROM - Respiratory Respiratory effort: normal Respiratory: bilateral: diminished, rhonchi, negative: rales, wheezing - Cardiovascular Rhythm: regular Heart Sounds: Present: S1 & S2 - Extremities Extremities: no ischemia, No edema - Abdominal General gastrointestinal: soft, non-tender, non-distended, normal bowel sounds - Integumentary Integumentary: Present: clear, warm - Psychiatric Psychiatric: appropriate mood/affect - Neurologic Neurologic: moves all extremities HEART Score - HEART Score EKG: Non-specific Age: > 65 Risk factors: > 3 risk factors or hx of atherosclerotic disease Troponin: Troponin T < 0.010 ng/mL (0.00-0.029) 07/18/19 17:56 - Critical Actions Critical Actions: 4-6 pts:12-16.6% risk of adverse cardiac event. Should be admitted Results - Labs CBC & Chem 7: 07/26/19 04:49 07/26/19 04:49 Labs: Laboratory Last Values WBC 3.1 K/mm3 (4.5-11.0) L 07/26/19 04:49 RBC 3.71 M/mm3 (3.65-5.03) 07/26/19 04:49 Hgb 9.2 gm/dl (10.1-14.3) L 07/26/19 04:49 Hct 29.9 % (30.3-42.9) L 07/26/19 04:49 MCV 81 fl (79-97) 07/26/19 04:49 MCH 25 pg (28-32) L 07/26/19 04:49 MCHC 31 % (30-34) 07/26/19 04:49 RDW 23.4 % (13.2-15.2) H 07/26/19 04:49 Plt Count 152 K/mm3 (140-440) 07/26/19 04:49 Lymph % (Auto) 16.9 % (13.4-35.0) 07/21/19 04:20 [place] % (Auto) 1.4 % (0.0-7.3) 07/21/19 04:20 Eos % (Auto) 0.0 % (0.0-4.3) 07/21/19 04:20 Baso % (Auto) 0.1 % (0.0-1.8) 07/21/19 04:20 Lymph # 0.5 K/mm3 (1.2-5.4) L 06/11/20 04:20 Hutchinson # 0.0 K/mm3 (0.0-0.8) 07/21/19 04:20 Eos # 0.0 K/mm3 (0.0-0.4) 07/21/19 04:20 Baso # 0.0 K/mm3 (0.0-0.1) 07/21/19 04:20 Add Manual Diff Complete 07/19/19 03:31 Total Counted 100 07/19/19 03:31 Seg Neutrophils % 81.6 % (40.0-70.0) H 07/21/19 04:20 Seg Neuts % (Manual) 83.0 % (40.0-70.0) H 07/19/19 03:31 Band Neutrophils % 0 % 07/19/19 03:31 Lymphocytes % (Manual) 16.0 % (13.4-35.0) 07/19/19 03:31 Reactive Lymphs % (Man) 0 % 07/19/19 03:31 Monocytes % (Manual) 1.0 % (0.0-7.3) 07/19/19 03:31 Eosinophils % (Manual) 0 % (0.0-4.3) 07/19/19 03:31 Basophils % (Manual) 0 % (0.0-1.8) 07/19/19 03:31 Metamyelocytes % 0 % 07/19/19 03:31 Myelocytes % 0 % 07/19/19 03:31 Promyelocytes % 0 % 07/19/19 03:31 Blast Cells % 0 % 07/19/19 03:31 Nucleated RBC % Not Reportable 07/19/19 03:31 Seg Neutrophils # 2.6 K/mm3 (1.8-7.7) 07/21/19 04:20 Seg Neutrophils # Man 2.4 K/mm3 (1.8-7.7) 07/19/19 03:31 Band Neutrophils # 0.0 K/mm3 07/19/19 03:31 Lymphocytes # (Manual) 0.5 K/mm3 (1.2-5.4) L 07/19/19 03:31 Abs React Lymphs (Man) 0.0 K/mm3 07/19/19 03:31 Monocytes # (Manual) 0.0 K/mm3 (0.0-0.8) 07/19/19 03:31 Eosinophils # (Manual) 0.0 K/mm3 (0.0-0.4) 07/19/19 03:31 Basophils # (Manual) 0.0 K/mm3 (0.0-0.1) 07/19/19 03:31 Metamyelocytes # 0.0 K/mm3 07/19/19 03:31 Myelocytes # 0.0 K/mm3 07/19/19 03:31 Promyelocytes # 0.0 K/mm3 07/19/19 03:31 Blast Cells # 0.0 K/mm3 07/19/19 03:31 WBC Morphology Not Reportable 07/19/19 03:31 Hypersegmented Neuts Not Reportable 07/19/19 03:31 Hyposegmented Neuts Not Reportable 07/19/19 03:31 Hypogranular Neuts Not Reportable 07/19/19 03:31 Smudge Cells Not Reportable 07/19/19 03:31 Toxic Granulation Not Reportable 07/19/19 03:31 Toxic Vacuolation Not Reportable 07/19/19 03:31 Dohle Bodies Not Reportable 07/19/19 03:31 Pelger-Huet Anomaly Not Reportable 07/19/19 03:31 Camilo Rods Not Reportable 07/19/19 03:31 Platelet Estimate Consistent w auto 07/19/19 03:31 Clumped Platelets Not Reportable 07/19/19 03:31 Plt Clumps, EDTA Not Reportable 07/19/19 03:31 Large Platelets Not Reportable 07/19/19 03:31 Giant Platelets Not Reportable 07/19/19 03:31 Platelet Satelliting Not Reportable 07/19/19 03:31 Plt Morphology Comment Not Reportable 07/19/19 03:31 RBC Morphology Not Reportable 07/19/19 03:31 Dimorphic RBCs Not Reportable 07/19/19 03:31 Polychromasia Not Reportable 07/19/19 03:31 Hypochromasia 1+ 07/19/19 03:31 Poikilocytosis Not Reportable 07/19/19 03:31 Anisocytosis 2+ 07/19/19 03:31 Microcytosis Few 07/19/19 03:31 Macrocytosis Few 07/19/19 03:31 Spherocytes Not Reportable 07/19/19 03:31 Pappenheimer Bodies Not Reportable 07/19/19 03:31 Sickle Cells Not Reportable 07/19/19 03:31 Target Cells Not Reportable 07/19/19 03:31 Tear Drop Cells Not Reportable 07/19/19 03:31 Ovalocytes Few 07/19/19 03:31 Helmet Cells Not Reportable 07/19/19 03:31 [place] Bodies Not Reportable 07/19/19 03:31 [place] Rings Not Reportable 07/19/19 03:31 Eugenia Cells Not Reportable 07/19/19 03:31 Bite Cells Not Reportable 07/19/19 03:31 Crenated Cell Not Reportable 07/19/19 03:31 Elliptocytes Not Reportable 07/19/19 03:31 Acanthocytes (Spur) Not Reportable 07/19/19 03:31 Rouleaux Not Reportable 07/19/19 03:31 Hemoglobin C Crystals Not Reportable 07/19/19 03:31 Schistocytes Rare 07/19/19 03:31 Malaria parasites Not Reportable 07/19/19 03:31 Colby Bodies Not Reportable 07/19/19 03:31 Hem Pathologist Commnt No 07/19/19 03:31 PT 17.3 Sec. (12.2-14.9) H 07/21/19 11:43 INR 1.41 (0.87-1.13) H 07/21/19 11:43 ABG pH 7.369 pH Units (7.350-7.450) 07/24/19 09:55 ABG pCO2 59.5 mm Hg 07/24/19 09:55 ABG pO2 81.5 mm Hg (80.0-90.0) 07/24/19 09:55 ABG HCO3 33.6 mmol/L (20.0-26.0) H 07/24/19 09:55 ABG O2 Saturation 97.0 % (95.0-99.0) 07/24/19 09:55 ABG O2 Content 12.7 (0.0-44) 07/24/19 09:55 ABG Base Excess 7.0 mmol/L (-2.0-3.0) H 07/24/19 09:55 ABG Hemoglobin 9.5 gm/dl (12.0-16.0) L 07/24/19 09:55 ABG Carboxyhemoglobin 2.0 % (0.0-5.0) 07/24/19 09:55 ABG Methemoglobin 0.3 % (0.0-1.5) 07/24/19 09:55 Oxyhemoglobin 94.7 % (95.0-99.0) L 07/24/19 09:55 FiO2 32 % 07/24/19 09:55 Sodium 135 mmol/L (137-145) L 07/26/19 04:49 Potassium 3.5 mmol/L (3.6-5.0) L 07/26/19 04:49 Chloride 90.1 mmol/L (98-107) L 07/26/19 04:49 Carbon Dioxide 32 mmol/L (22-30) H 07/26/19 04:49 Anion Gap 16 mmol/L 07/26/19 04:49 BUN 38 mg/dL (7-17) H 07/26/19 04:49 Creatinine 1.4 mg/dL (0.7-1.2) H 07/26/19 04:49 Estimated GFR 45 ml/min 07/26/19 04:49 BUN/Creatinine Ratio 27 % 07/26/19 04:49 Glucose 201 mg/dL (65-100) H 07/26/19 04:49 POC Glucose 278 (70-105) H 07/26/19 16:00 Hemoglobin A1c 5.2 % (4-6) 07/19/19 03:31 Calcium 9.3 mg/dL (8.4-10.2) 07/26/19 04:49 Magnesium 2.10 mg/dL (1.7-2.3) 07/24/19 07:33 Total Bilirubin 0.70 mg/dL (0.1-1.2) 07/23/19 05:19 AST 12 units/L (5-40) 07/23/19 05:19 ALT 16 units/L (7-56) 07/23/19 05:19 Alkaline Phosphatase 126 units/L (35-129) 07/23/19 05:19 Ammonia 53.0 umol/L (25-60) 07/23/19 16:32 Total Creatine Kinase 67 units/L (30-135) 07/18/19 17:56 CK-MB (CK-2) 2.4 ng/mL (0.0-4.0) 07/18/19 17:56 CK-MB (CK-2) Rel Index 3.5 (0-4) 07/18/19 17:56 Troponin T < 0.010 ng/mL (0.00-0.029) 07/18/19 17:56 NT-Pro-B Natriuret Pep 3321 pg/mL (0-900) H 07/18/19 17:56 Total Protein 6.9 g/dL (6.3-8.2) 07/23/19 05:19 Albumin 3.7 g/dL (3.9-5) L 07/23/19 05:19 Albumin/Globulin Ratio 1.2 % 07/23/19 05:19 Fluid Type Pleural 07/21/19 14:45 Fluid Color Yellow 07/21/19 14:45 Fluid Appearance Hazy 07/21/19 14:45 Fluid WBC 443 /mm3 07/21/19 14:45 Fluid RBC 5250 /mm3 07/21/19 14:45 Fluid Seg Neutrophils 8.0 % 07/21/19 14:45 Fluid Lymphocytes 63.0 % 07/21/19 14:45 Fluid Reactive Lymphs 0 % 07/21/19 14:45 Fluid Monocytes 29.0 % 07/21/19 14:45 Fluid Eosinophils 0 % 07/21/19 14:45 Fluid Basophils 0 % 07/21/19 14:45 AFB Identification 07/21/19 14:45 - Diagnostic Impressions Diagnostic Impressions: Echocardiogram 07/18/19 22:35 Transthoracic Echocardiogram Indication: SOB BP: 154/91 HR: 92 Conclusions *The study is technically limited due to poor acoustic windows. *Mild concentric left ventricular hypertrophy is observed. *Global left ventricular systolic function is normal. *The estimated ejection fraction is 50-55%. *Abnormal left ventricular diastolic function is observed. *The left atrium is severely dilated. *The right ventricle is severely dilated. *There is mild aortic regurgitation. *There is evidence of severe pulmonary hypertension. Findings Procedure Info: The study quality is technically difficult. The study is technically limited due to poor acoustic windows. Left Ventricle: The left ventricular chamber size is normal. Mild concentric left ventricular hypertrophy is observed. Global left ventricular systolic function is normal. The estimated ejection fraction is 50-55%. Abnormal left ventricular diastolic function is observed. Abnormal left ventricular diastolic filling is observed, consistent with impaired relaxation. Left Atrium: The left atrium is severely dilated. Right Ventricle: The right ventricle is severely dilated. The right ventricular global systolic function is moderately reduced. Right Atrium: The right atrial cavity size is severely dilated. Aortic Valve: Mild aortic leaflet calcification is visualized. There is mild aortic regurgitation. Mitral Valve: There is mitral annular calcification. Mild mitral leaflet calcification is visualized. There is trace of mitral regurgitation. Tricuspid Valve: The tricuspid valve leaflets are normal. There is moderate to severe tricuspid regurgitation. The right ventricular systolic pressure is calculated at 72 mmHg. There is evidence of severe pulmonary hypertension. Pulmonic Valve: The pulmonic valve is not well visualized. The pulmonic valve appears normal. There is mild pulmonic regurgitation. Pericardium: A pericardial effusion is visualized. There is a minimial pericardial effusion. Aorta: The aorta appears normal. Venous: The inferior vena cava is dilated. There is no change in the dimension of the inferior vena cava with respiration consistent with markedly increased right atrial pressure. Measurements Chambers 2D Name Value Normal Range IVSd (2D) 1.27 cm (0.6 - 1.1) LVPWd (2D) 1.22 cm (0.6 - 1.1) LVIDd (2D) 4.71 cm (3.7 - 5.6) LVIDs (2D) 3.77 cm (2 - 3.8) LV FS (2D) 20.09 % - EF Teichholz (2D) 41.13 % - Ao root diameter (2D) 3.52 cm (2 - 3.7) Volumes/Mass Name Value Normal Range LA ESV SP 4CH (A/L) 107.42 ml - LA ESV SP 2CH (A/L) 135.51 ml - LA ESV BP (A/L) 128.25 ml - LA ESV BP (A/L) index 63.49 ml/m2 - LA ESV SP 4CH (MOD) 94.91 ml - LA ESV SP 2CH (MOD) 126.36 ml - LA ESV BP (MOD) 115.15 ml - LA ESV BP (MOD) index 57.01 ml/m2 - Diastolic/Systolic Function Name Value Normal Range MV E-wave Vmax 0.95 m/sec - MV deceleration time 148.19 msec - Aortic Valve Name Value Normal Range AV Vmax 1.53 m/sec - AV VTI 26.2 cm - AV peak gradient 9.37 mmHg - AV mean gradient 5.14 mmHg - LVOT diameter 2.34 cm - LVOT Vmax 1.03 m/sec - LVOT VTI 15.48 cm - LVOT peak gradient 4.28 mmHg - LVOT mean gradient 2.19 mmHg - SV LVOT 66.43 ml - JULIEN (continuity Vmax) 2.9 cm2 - JULIEN (continuity VTI) 2.54 cm2 - AR PHT 945.01 msec - AR peak gradient 78.01 mmHg - Ascending Ao 3.94 cm - Tricuspid Valve Name Value Normal Range TR Vmax 3.75 m/sec - TR peak gradient 56 mmHg - RAP 15 mmHg - RVSP 72 mmHg - IVC diameter 2.9 cm (1.2 - 2.3) Pulmonic Valve/Qp:Qs Name Value Normal Range PV Vmax 1.06 m/sec - PV peak gradient 4.52 mmHg - CA end-diastolic Vmax 2.29 m/sec - PV acceleration time 76.12 msec - Hopson/IV: Voiding Method External Female Catheter IV Catheter Type [Left Forearm INT / Saline Lock ] IV Catheter Type [Left Hand] INT / Saline Lock IV Catheter Type [Left Wrist] INT / Saline Lock IV Catheter Type [Right INT / Saline Lock Forearm] IV Catheter Type [Left INT / Saline Lock Antecubital] Active Medications - Current Medications Current Medications: Generic Name Dose Route Start Last Admin Trade Name Freq PRN Reason Stop Dose Admin Acetaminophen 650 mg 07/18/19 22:13 07/19/19 22:00 Tylenol PO 650 mg Q4H PRN Administration Pain MILD(1-3)/Fever >100.5/KENDALL Acetazolamide 500 mg 07/24/19 10:00 07/26/19 09:14 Diamox IV 07/26/19 22:01 500 mg Q12HR CHRISTINA Administration Albuterol/Ipratropium 1 ampul 07/21/19 14:00 07/26/19 10:24 Duoneb *Not For Prn Use* IH 1 ampul TIDRT CHRISTINA Administration Arformoterol Tartrate 15 mcg 07/21/19 11:45 07/26/19 10:24 Brovana Nebu IH 15 mcg Q12HRT CHRISTINA Administration Budesonide 0.5 mg 07/21/19 11:45 07/26/19 10:24 Pulmicort IH 0.5 mg Q12HRT CHRISTINA Administration Dextrose 50 ml 07/24/19 08:39 D50w (25gm) Syringe IV Q30MIN PRN Hypoglycemia Protocol Diltiazem HCl 60 mg 07/24/19 12:00 07/26/19 06:38 Cardizem PO 60 mg Q6HR CHRISTINA Administration Famotidine 20 mg 07/22/19 10:00 07/26/19 09:14 Pepcid PO 20 mg DAILY CHRISTINA Administration Furosemide 40 mg 07/25/19 10:00 07/26/19 09:14 Lasix PO 40 mg QDAY CHRISTINA Administration Hydralazine HCl 10 mg 07/23/19 16:19 07/23/19 16:43 Apresoline IV 10 mg Q6HR PRN Administration Blood Pressure Insulin Human Lispro 0 unit 07/24/19 11:30 07/26/19 13:31 Humalog SUB-Q 4 unit ACHS CHRISTINA Administration Protocol Levofloxacin 750 mg 07/22/19 10:00 07/26/19 09:16 Levaquin PO 07/28/19 10:01 750 mg Q48HR CHRISTINA Administration Lorazepam 2 mg 07/23/19 16:22 07/26/19 11:06 Ativan IM 2 mg Q6H PRN Administration Agitation Methylprednisolone Sodium Succinate 40 mg 07/22/19 22:00 07/26/19 13:32 Solu-Medrol IV 40 mg Q8HR CHRISTINA Administration Metoclopramide HCl 10 mg 07/18/19 22:13 07/21/19 04:06 Reglan IV 10 mg Q6H PRN Administration Nausea And Vomiting Ondansetron HCl 4 mg 07/18/19 22:13 07/22/19 09:22 Zofran IV 4 mg Q8H PRN Administration Nausea And Vomiting Oxycodone/Acetaminophen 1 tab 07/18/19 22:13 07/22/19 14:21 Percocet 5/325 PO 1 tab Q6H PRN Administration Pain, Moderate (4-6) Sodium Chloride 10 ml 07/18/19 23:00 07/26/19 09:15 Sodium Chloride Flush Syringe 10 Ml IV 10 ml BID CHRISTINA Administration Sodium Chloride 10 ml 07/18/19 22:13 07/22/19 05:48 Sodium Chloride Flush Syringe 10 Ml IV 10 ml PRN PRN Administration LINE FLUSH
[2019-07-27 04:55] LABS: Calcium 9.3 mg/dL (8.4-10.2)
[2019-07-27] MEDS: methylPREDNISolone Sod Succinate 40 MG/1 ML INJ IV SCH ×2 (06:00→14:03)
[2019-07-27] MEDS: dilTIAZem 60 MG TAB PO SCH (06:00)
[2019-07-27 06:10] VITALS: BP 151/95
[2019-07-27] MEDS: INSULIN LISPRO 100 UNIT/ML SUB-Q SCH ×2 (08:16→12:25)
[2019-07-27] MEDS: ARFORMOTEROL 15 MCG/2 ML NEBU IH SCH (08:49)
[2019-07-27] MEDS: BUDESONIDE 0.5 MG/2 ML NEBU IH SCH (08:49)
[2019-07-27] MEDS: IPRATROPIUM/ALBUTEROL SULFATE 3 ML AMPUL.NEB IH SCH ×2 (08:49→14:39)
--- NOTE | 2019-07-27 10:16 | Progress Note ---
Assessment and Plan Tele reviewed - in AFib with HR 90s, increase cardizem to 90mg Q6H. Cont PO lasix. Patient is awaiting thoracentesis with lung biopsy, resume home oral anticoagulation once biopsy is done. Currently stable cardiac status. Nothing further to add from cardiac perspective at this time. Will sign off. Recommend pt follow up with [facility] within 2 weeks of discharge. The patient has been seen in conjunction with Dr. Santacruz who agrees with the assessment and plan of care. - Patient Problems (1) Acute heart failure with preserved ejection fraction Current Visit: Yes Status: Acute (2) Lung mass Current Visit: Yes Status: Chronic (3) Severe pulmonary arterial systolic hypertension Current Visit: Yes Status: Chronic (4) Pleural effusion, right Current Visit: Yes Status: Acute (5) COPD (chronic obstructive pulmonary disease) Current Visit: Yes Status: Chronic Qualifiers: Emphysema type: unspecified (6) Acute on chronic respiratory failure Current Visit: Yes Status: Acute (7) Accelerated hypertension Current Visit: Yes Status: Acute (8) Atrial fibrillation Current Visit: Yes Status: Chronic (9) Anemia Current Visit: Yes Status: Acute (10) Tobacco use Current Visit: Yes Status: Chronic (11) AMS (altered mental status) Current Visit: Yes Status: Acute Plan to address problem: unable to complete MRI due to agitation Subjective Date of service: 07/27/19 Principal diagnosis: Chf exacerbation,RUL mass,PNA Interval history: Pt resting in bed, more alert today, sitter at bedside. no current cardiac complaints. in AFib with CVR on tele. Objective Last Vital Signs Temp 98.1 F 07/27/19 06:09 Pulse 96 H 07/27/19 06:09 Resp 20 07/27/19 06:09 BP 151/95 07/27/19 06:09 Pulse Ox 92 07/27/19 06:09 - Physical Examination General: No Apparent Distress HEENT: Positive: PERRL Neck: Positive: neck supple, trachea midline Cardiac: Positive: irregularly irregular, S1/S2 Lungs: Positive: Decreased Breath Sounds Neuro: Positive: Grossly Intact Abdomen: Negative: Tender Skin: Negative: Rash Musculoskeletal: No Pain Extremities: Absent: edema - Labs and Meds Comprehensive Metabolic Panel 07/27/19 Range/Units 04:00 Sodium 138 (137-145) mmol/L Potassium 3.3 L (3.6-5.0) mmol/L Chloride 93.3 L (98-107) mmol/L Carbon Dioxide 35 H (22-30) mmol/L BUN 33 H (7-17) mg/dL Creatinine 1.4 H (0.7-1.2) mg/dL Glucose 250 H (65-100) mg/dL Calcium 9.3 (8.4-10.2) mg/dL - Imaging and Cardiology EKG: report reviewed Echo: report reviewed (Normal LV function severe pulmonary hypertension) Holter: report reviewed - Telemetry EKG Rhythm: Atrial Fibrillation - Allied health notes Allied health notes reviewed: nursing
[2019-07-27] MEDS: FAMOTIDINE 20 MG TAB PO SCH (10:19)
[2019-07-27] MEDS: FUROSEMIDE 40 MG TAB PO SCH (10:19)
--- NOTE | 2019-07-27 10:38 | Progress Note ---
Assessment and Plan 1. Acute kidney injury: [place] in setting of contrast induced nephropathy. Renal US negative for hydro. Urine studies ordered. Monitor renal function. Creatinine level 1.4 from 1.4 from 1.6 from 1.6 from 1.9 from 1.8 from 1.5. Avoid nephrotoxic agents. Meds dosage based on GFR. 2. FEN: Metabolic alkalosis, on Diamox. Hypokalemia, replete K, monitor. LE edema, improved. Monitor lytes and volume status. 3. Acute CHF, POA: Normal LVEF, followed by Cards. 4. Severe pulmonary arterial systolic hypertension. 5. Lung mass. 6. Acute on chronic hypoxic respiratory failure: Pulmonary following. 7. Right sided Pleural effusion: S/p thoracentesis. 8. Encephalopathy. 9. Hypertension. 10. Atrial fibrillation. 11. Anemia. F/u with me in 1-2 weeks. Objective: Patient was seen and examined at the bedside. No new complaint. Examination: General appearance: well-developed, appears stated age, obese, no distress, on restrains HEENT: atraumatic Neck: neck supple, trachea midline Respiratory: Decreased Breath Sounds (bibasilar) Heart: regular, normal heart rate, S1S2, no murmur Gastrointestinal: obese, soft, bowel sounds present, not tender Integumentary: no rash, warm and dry Neurologic: some confusion, non-focal Ext: no edema Subjective Date of service: 07/27/19 Principal diagnosis: Chf exacerbation,RUL mass,PNA Objective - Vital Signs Vital signs: Vital Signs - 12hr 07/27/19 06:09 Temperature 98.1 F Pulse Rate 96 H Respiratory 20 Rate Blood Pressure 151/95 [Right] O2 Sat by Pulse 92 Oximetry - Lab 07/26/19 04:49 07/27/19 04:00 Most recent lab results ABG pH 7.369 pH Units (7.350-7.450) 07/24/19 09:55 ABG pCO2 59.5 mm Hg 07/24/19 09:55 ABG pO2 81.5 mm Hg (80.0-90.0) 07/24/19 09:55 ABG HCO3 33.6 mmol/L (20.0-26.0) H 07/24/19 09:55 ABG O2 Saturation 97.0 % (95.0-99.0) 07/24/19 09:55 Calcium 9.3 mg/dL (8.4-10.2) 07/27/19 04:00 Magnesium 2.10 mg/dL (1.7-2.3) 07/24/19 07:33 Medications & Allergies - Medications Allergies/Adverse Reactions: Allergies No Known Allergies Allergy (Verified 07/18/19 23:05) Home Medications: Home Medications Medication Instructions Recorded Confirmed Last Taken Type HYDROcodone/APAP 5-325 [[place] 1 each PO Q6HR PRN #12 tablet 12/17/18 07/19/19 Unknown Rx 5-325 mg TAB] Apixaban [Eliquis] 5 mg PO BID #60 tablet 07/27/19 Unknown Rx Diltiazem HCl [Cardizem LA] 360 mg PO DAILY #30 tab.er.24h 07/27/19 Unknown Rx Famotidine [Pepcid] 20 mg PO DAILY #30 tablet 07/27/19 Unknown Rx Furosemide [Lasix TAB] 40 mg PO QDAY #30 tablet 07/27/19 Unknown Rx Prednisone [predniSONE 10 mg 10 mg PO .TAPER #1 tab.ds.pk 07/27/19 Unknown Rx (6-Day Pack, 21 Tabs)] levoFLOXacin [Levaquin TAB] 750 mg PO Q48HR #2 tablet 07/27/19 Unknown Rx Active Medications: Generic Name Dose Route Start Last Admin Trade Name Freq PRN Reason Stop Dose Admin Acetaminophen 650 mg 07/18/19 22:13 07/19/19 22:00 Tylenol PO 650 mg Q4H PRN Administration Pain MILD(1-3)/Fever >100.5/KENDALL Albuterol/Ipratropium 1 ampul 07/21/19 14:00 07/27/19 08:49 Duoneb *Not For Prn Use* IH 1 ampul TIDRT CHRISTINA Administration Arformoterol Tartrate 15 mcg 07/21/19 11:45 07/27/19 08:49 Brovana Nebu IH 15 mcg Q12HRT CHRISTINA Administration Budesonide 0.5 mg 07/21/19 11:45 07/27/19 08:49 Pulmicort IH 0.5 mg Q12HRT CHRISTINA Administration Dextrose 50 ml 07/24/19 08:39 D50w (25gm) Syringe IV Q30MIN PRN Hypoglycemia Protocol Diltiazem HCl 90 mg 07/27/19 12:00 Cardizem PO Q6HR CHRISTINA Famotidine 20 mg 07/22/19 10:00 07/27/19 10:19 Pepcid PO 20 mg DAILY CHRISTINA Administration Furosemide 40 mg 07/25/19 10:00 07/27/19 10:19 Lasix PO 40 mg QDAY CHRISTINA Administration Hydralazine HCl 10 mg 07/23/19 16:19 07/23/19 16:43 Apresoline IV 10 mg Q6HR PRN Administration Blood Pressure Insulin Human Lispro 0 unit 07/24/19 11:30 07/27/19 08:16 Humalog SUB-Q 3 unit ACHS CHRISTINA Administration Protocol Levofloxacin 750 mg 07/22/19 10:00 07/26/19 09:16 Levaquin PO 07/28/19 10:01 750 mg Q48HR CHRISTINA Administration Lorazepam 2 mg 07/23/19 16:22 07/26/19 22:41 Ativan IM 2 mg Q6H PRN Administration Agitation Methylprednisolone Sodium Succinate 40 mg 07/22/19 22:00 07/27/19 06:00 Solu-Medrol IV 40 mg Q8HR CHRISTINA Administration Metoclopramide HCl 10 mg 07/18/19 22:13 07/21/19 04:06 Reglan IV 10 mg Q6H PRN Administration Nausea And Vomiting Ondansetron HCl 4 mg 07/18/19 22:13 07/22/19 09:22 Zofran IV 4 mg Q8H PRN Administration Nausea And Vomiting Oxycodone/Acetaminophen 1 tab 07/18/19 22:13 07/22/19 14:21 Percocet 5/325 PO 1 tab Q6H PRN Administration Pain, Moderate (4-6) Sodium Chloride 10 ml 07/18/19 23:00 07/27/19 10:19 Sodium Chloride Flush Syringe 10 Ml IV 10 ml BID CHRISTINA Administration Sodium Chloride 10 ml 07/18/19 22:13 07/22/19 05:48 Sodium Chloride Flush Syringe 10 Ml IV 10 ml PRN PRN Administration LINE FLUSH
--- NOTE | 2019-07-27 11:30 | Discharge Summary ---
Providers - Providers Date of Admission: 07/20/19 09:46 Date of discharge: 07/27/19 Attending physician: GARY BLUM 07/18/19 22:13 Consult to Physician [CONS] Routine Comment: Consulting Provider: ABDI FRIEDMAN Physician Instructions: Reason For Exam: CHF exacerbation 07/20/19 08:19 Consult to Physician [CONS] Routine Comment: Consulting Provider: JUNIE COTE Physician Instructions: Reason For Exam: RUL mass ,copd Pna 07/21/19 09:04 Consult to Physician [CONS] Routine Comment: Consulting Provider: ESTELLA ALAMO Physician Instructions: Reason For Exam: [place] Primary care physician: FOUR SLIDE OPERATOR Hospitalization Condition: Fair Disposition: DC-01 TO HOME OR SELFCARE Time spent for discharge: 32 min Core Measure Documentation - Palliative Care Palliative Care/ Comfort Measures: Not Applicable - Core Measures Any of the following diagnoses?: none Exam - Constitutional Vitals: Temp Pulse Resp BP Pulse Ox 98.1 F 89 20 151/95 92 07/27/19 06:09 07/27/19 10:00 07/27/19 06:09 07/27/19 06:09 07/27/19 06:09 General appearance: Present: no acute distress, well-nourished - EENT Eyes: Present: PERRL, EOM intact - Neck Neck: Present: supple, normal ROM - Respiratory Respiratory effort: normal Respiratory: bilateral: diminished, negative: rales, rhonchi, wheezing - Cardiovascular Rhythm: regular Heart Sounds: Present: S1 & S2 - Extremities Extremities: no ischemia, No edema - Abdominal General gastrointestinal: Present: soft, non-tender, non-distended, normal bowel sounds - Integumentary Integumentary: Present: clear - Musculoskeletal Musculoskeletal: strength equal bilaterally - Psychiatric Psychiatric: appropriate mood/affect, cooperative, other (Confused at times) - Neurologic Neurologic: moves all extremities Plan Activity: advance as tolerated, fall precautions Diet: other (Cardiac diet as tolerated) Additional Instructions: Patient advised to follow-up with Juliaetta b operator, court reporter, primary care physician and car seat upholsterer per schedule. Patient also need supervision at home [patient sometimes she gets confused]. Patient needs CT-guided needle biopsy of lung mass[Juliaetta b operator]. Patient already has home oxygen, advised to continue as before Follow up with: PRIMARY CARE, [Primary Care Provider] - 7 Days JUNIE COTE MD [Staff Physician] - 7 Days ESTELLA ALAMO MD [Staff Physician] - 7 Days ADBI FRIEDMAN MD [Staff Physician] - 7 Days Prescriptions: Diltiazem HCl [Cardizem LA] 360 mg PO DAILY #30 tab.er.24h Apixaban [Eliquis] 5 mg PO BID #60 tablet Furosemide [Lasix TAB] 40 mg PO QDAY #30 tablet levoFLOXacin [Levaquin TAB] 750 mg PO Q48HR #2 tablet Famotidine [Pepcid] 20 mg PO DAILY #30 tablet Prednisone [predniSONE 10 mg (6-Day Pack, 21 Tabs)] 10 mg PO .TAPER #1 tab.ds.pk
[2019-07-27] MEDS ORDERED: POTASSIUM CHLORIDE ER 20 MEQ TAB PO ONE (12:00)
--- NOTE | 2019-07-27 12:42 | Progress Note ---
Assessment and Plan Patient Awake and anxious.. Resting on 3 litres nasal canula. O2 saturation 92%. Pleural fluid chemistry, cultures, cytology still pending or not send the samples to the lab. Patient scheduled for percutaneous needle biopsy of chest lesion which is still pending. - Patient Problems (1) Pleural effusion, right Current Visit: Yes Status: Acute Plan to address problem: Patient undergone Right Thoracentesis 07/21/19 Patient undergone thoracentesis Pleural fluid showed WBC 443. RBC 5250 Remaining othe pleural fluid results pending. (2) COPD (chronic obstructive pulmonary disease) Current Visit: Yes Status: Chronic Qualifiers: Emphysema type: unspecified Qualified Code(s): J43.9 - Emphysema, unspecified Plan to address problem: O2 3 litres via nasal canula. Albuterol/atrovent aerosol treatments q 6 hours. Continue I/V solumedrol Continue Levaquin Patient is on S/C Heparin. Continue Famotidine. (3) Lung mass Current Visit: Yes Status: Chronic Plan to address problem: Patient scheduled for percutaneous needle biopsy of Right chest lesion under CT Guidance. (4) Severe pulmonary arterial systolic hypertension Current Visit: Yes Status: Chronic Plan to address problem: Likely secondary to COPD and CHF. Optimize treatment for both dose conditions. (5) Tobacco use Current Visit: Yes Status: Chronic Plan to address problem: Counselled to stop smoking. (6) Acute heart failure with preserved ejection fraction Current Visit: Yes Status: Acute Plan to address problem: Management as per cardiology. (7) Acute on chronic respiratory failure Current Visit: Yes Status: Acute Plan to address problem: O2 3 litres via nasal canula. Albuterol/atrovent aerosol treatments q 6 hours. Continue I/V solumedrol Continue Levaquin Patient is on S/C Heparin. Continue Famotidine. (8) Atrial fibrillation Current Visit: Yes Status: Chronic Plan to address problem: Managent as per cardiology. (9) HLD (hyperlipidemia) Current Visit: Yes Status: Chronic Qualifiers: Hyperlipidemia type: mixed hyperlipidemia Qualified Code(s): E78.2 - Mixed hyperlipidemia Plan to address problem: Management as per primary care. (10) HTN (hypertension) Current Visit: Yes Status: Chronic Qualifiers: Hypertension type: essential hypertension Qualified Code(s): I10 - Essential (primary) hypertension Plan to address problem: Management as per primary care. Subjective Date of service: 07/27/19 Principal diagnosis: Chf exacerbation,RUL mass,PNA Interval history: Patient Awake and anxious.. Resting on 3 litres nasal canula. O2 saturation 92%. Pleural fluid chemistry, cultures, cytology still pending or not send the samples to the lab. Patient scheduled for percutaneous needle biopsy of chest lesion which is still pending. Objective Vital Signs - 12hr 07/27/19 07/27/19 06:09 10:00 Temperature 98.1 F Pulse Rate 96 H 89 Pulse Rate [ 89 Apical] Respiratory 20 Rate Blood Pressure 151/95 [Right] O2 Sat by Pulse 92 Oximetry Constitutional: no acute distress, alert, agitated Eyes: non-icteric ENT: oropharynx moist Neck: supple, no lymphadenopathy, no JVD Effort: mildly labored Ascultation: Right: diminished breath sounds, Bilateral: wheezes (Rhonchi ) Percussion: Right: dull (base) Cardiovascular: irregular rhythm, other (S1,S2, no murmurs) Gastrointestinal: normoactive bowel sounds, soft, non-tender Integumentary: normal Extremities: no cyanosis, edema Neurologic: normal mental status, non-focal exam, pupils equal and round, CN II- XII normal, motor strength normal and Psychiatric: mood appropriate, affect normal CBC and BMP: 07/26/19 04:49 07/27/19 04:00 ABG, PT/INR, D-dimer: ABG ABG pH 7.369 pH Units (7.350-7.450) 07/24/19 09:55 ABG pCO2 59.5 mm Hg 07/24/19 09:55 ABG pO2 81.5 mm Hg (80.0-90.0) 07/24/19 09:55 ABG O2 Saturation 97.0 % (95.0-99.0) 07/24/19 09:55 PT/INR, D-dimer PT 17.3 Sec. (12.2-14.9) H 07/21/19 11:43 INR 1.41 (0.87-1.13) H 07/21/19 11:43 Abnormal lab findings: Abnormal Labs 07/18/19 07/18/19 07/19/19 17:56 17:56 03:31 WBC 2.9 L RBC 3.49 L Hgb 9.4 L 8.8 L Hct 28.8 L MCH 25 L 25 L RDW 25.0 H 24.5 H Plt Count Lymph # Seg Neutrophils % Seg Neuts % (Manual) 87.0 H 83.0 H Lymphocytes % (Manual) 10.0 L Lymphocytes # (Manual) 0.5 L 0.5 L PT INR ABG HCO3 ABG Base Excess ABG Hemoglobin Oxyhemoglobin Sodium Potassium Chloride 96.2 L Carbon Dioxide BUN Creatinine Glucose 112 H POC Glucose Alkaline Phosphatase 149 H NT-Pro-B Natriuret Pep 3321 H Albumin 3.8 L 07/19/19 07/20/19 07/20/19 03:31 03:32 03:32 WBC RBC 3.54 L Hgb 8.9 L Hct 29.5 L MCH 25 L RDW 23.6 H Plt Count Lymph # Seg Neutrophils % Seg Neuts % (Manual) Lymphocytes % (Manual) Lymphocytes # (Manual) PT INR ABG HCO3 ABG Base Excess ABG Hemoglobin Oxyhemoglobin Sodium Potassium 5.3 H D Chloride 96.3 L 96.0 L Carbon Dioxide 31 H BUN 24 H Creatinine 1.5 H Glucose 128 H 110 H POC Glucose Alkaline Phosphatase 148 H NT-Pro-B Natriuret Pep Albumin 07/21/19 07/21/19 07/21/19 04:20 04:20 11:43 WBC 3.2 L RBC Hgb 9.5 L Hct MCH 25 L RDW 23.6 H Plt Count Lymph # 0.5 L Seg Neutrophils % 81.6 H Seg Neuts % (Manual) Lymphocytes % (Manual) Lymphocytes # (Manual) PT 17.3 H INR 1.41 H ABG HCO3 ABG Base Excess ABG Hemoglobin Oxyhemoglobin Sodium 136 L Potassium 5.6 H Chloride 94.5 L Carbon Dioxide BUN 32 H Creatinine 1.8 H Glucose 133 H POC Glucose Alkaline Phosphatase 138 H NT-Pro-B Natriuret Pep Albumin 3.6 L 07/22/19 07/23/19 07/23/19 07:45 05:19 05:19 WBC 2.2 L RBC Hgb 9.2 L Hct 29.9 L MCH 25 L RDW 22.8 H Plt Count Lymph # Seg Neutrophils % Seg Neuts % (Manual) Lymphocytes % (Manual) Lymphocytes # (Manual) PT INR ABG HCO3 ABG Base Excess ABG Hemoglobin Oxyhemoglobin Sodium 135 L Potassium Chloride 92.5 L 91.1 L Carbon Dioxide 31 H BUN 41 H 41 H Creatinine 1.9 H 1.6 H Glucose 157 H 176 H POC Glucose Alkaline Phosphatase NT-Pro-B Natriuret Pep Albumin 3.7 L 07/24/19 07/24/19 07/24/19 07:33 09:55 12:30 WBC RBC Hgb Hct MCH RDW Plt Count Lymph # Seg Neutrophils % Seg Neuts % (Manual) Lymphocytes % (Manual) Lymphocytes # (Manual) PT INR ABG HCO3 33.6 H ABG Base Excess 7.0 H ABG Hemoglobin 9.5 L Oxyhemoglobin 94.7 L Sodium 136 L Potassium Chloride 91.8 L Carbon Dioxide 34 H BUN 40 H Creatinine 1.6 H Glucose 214 H POC Glucose 145 H Alkaline Phosphatase NT-Pro-B Natriuret Pep Albumin 07/24/19 07/24/19 07/25/19 19:00 20:31 03:38 WBC RBC Hgb Hct MCH RDW Plt Count Lymph # Seg Neutrophils % Seg Neuts % (Manual) Lymphocytes % (Manual) Lymphocytes # (Manual) PT INR ABG HCO3 ABG Base Excess ABG Hemoglobin Oxyhemoglobin Sodium Potassium Chloride 94.9 L Carbon Dioxide 31 H BUN 39 H Creatinine 1.4 H Glucose 179 H POC Glucose 180 H 169 H Alkaline Phosphatase NT-Pro-B Natriuret Pep Albumin 07/25/19 07/25/19 07/25/19 03:38 07:44 12:27 WBC 2.2 L RBC Hgb 9.5 L Hct MCH 25 L RDW 23.2 H Plt Count 139 L Lymph # Seg Neutrophils % Seg Neuts % (Manual) Lymphocytes % (Manual) Lymphocytes # (Manual) PT INR ABG HCO3 ABG Base Excess ABG Hemoglobin Oxyhemoglobin Sodium Potassium Chloride Carbon Dioxide BUN Creatinine Glucose POC Glucose 187 H 245 H Alkaline Phosphatase NT-Pro-B Natriuret Pep Albumin 07/25/19 07/25/19 07/26/19 16:17 21:52 04:49 WBC 3.1 L RBC Hgb 9.2 L Hct 29.9 L MCH 25 L RDW 23.4 H Plt Count Lymph # Seg Neutrophils % Seg Neuts % (Manual) Lymphocytes % (Manual) Lymphocytes # (Manual) PT INR ABG HCO3 ABG Base Excess ABG Hemoglobin Oxyhemoglobin Sodium Potassium Chloride Carbon Dioxide BUN Creatinine Glucose POC Glucose 290 H 190 H Alkaline Phosphatase NT-Pro-B Natriuret Pep Albumin 07/26/19 07/26/19 07/26/19 04:49 07:27 13:30 WBC RBC Hgb Hct MCH RDW Plt Count Lymph # Seg Neutrophils % Seg Neuts % (Manual) Lymphocytes % (Manual) Lymphocytes # (Manual) PT INR ABG HCO3 ABG Base Excess ABG Hemoglobin Oxyhemoglobin Sodium 135 L Potassium 3.5 L Chloride 90.1 L Carbon Dioxide 32 H BUN 38 H Creatinine 1.4 H Glucose 201 H POC Glucose 233 H 314 H Alkaline Phosphatase NT-Pro-B Natriuret Pep Albumin 07/26/19 07/26/19 07/27/19 16:00 20:34 04:00 WBC RBC Hgb Hct MCH RDW Plt Count Lymph # Seg Neutrophils % Seg Neuts % (Manual) Lymphocytes % (Manual) Lymphocytes # (Manual) PT INR ABG HCO3 ABG Base Excess ABG Hemoglobin Oxyhemoglobin Sodium Potassium 3.3 L Chloride 93.3 L Carbon Dioxide 35 H BUN 33 H Creatinine 1.4 H Glucose 250 H POC Glucose 278 H 297 H Alkaline Phosphatase NT-Pro-B Natriuret Pep Albumin 07/27/19 07/27/19 08:00 12:19 WBC RBC Hgb Hct MCH RDW Plt Count Lymph # Seg Neutrophils % Seg Neuts % (Manual) Lymphocytes % (Manual) Lymphocytes # (Manual) PT INR ABG HCO3 ABG Base Excess ABG Hemoglobin Oxyhemoglobin Sodium Potassium Chloride Carbon Dioxide BUN Creatinine Glucose POC Glucose 289 H 396 H Alkaline Phosphatase NT-Pro-B Natriuret Pep Albumin Allied health notes reviewed: nursing
[2019-07-28 07:30] LABS: Amylase,Body Fluid 19; LDH,Body Fluid 203; Total Protein,Body Fluid < 3.0 (15.0-45.0)
== END 2019-07-27 17:17 | disposition home health service (06) | DRG 186 ==
LOC: ED 16:59 → 4A 19:50 → INTOOBSV 19:50 → 4A 20:19 → OBSVTOIN 07-20 09:46 → 4A 07-24 14:33
PROVIDERS: ADMIT Internal Medicine; ATTEND Internal Medicine
PROC: 0W993ZZ Drainage of Right Pleural Cavity, Percutaneous Approach (ICD-10-PCS; principal; 2019-07-21)
PROC: 4A033R1 Measurement of Arterial Saturation, Peripheral, Percutaneous Approach (ICD-10-PCS; 2019-07-24)
DX: J90 Pleural effusion, not elsewhere classified (principal); I50.43 Acute on chronic combined systolic (congestive) and diastolic (congestive) heart failure; N17.0 Acute kidney failure with tubular necrosis; J96.21 Acute and chronic respiratory failure with hypoxia; G93.40 Encephalopathy, unspecified; E87.3 Alkalosis; Z71.6 Tobacco abuse counseling; F17.210 Nicotine dependence, cigarettes, uncomplicated; I11.0 Hypertensive heart disease with heart failure; E78.00 Pure hypercholesterolemia, unspecified; J44.9 Chronic obstructive pulmonary disease, unspecified; I48.91 Unspecified atrial fibrillation; Z98.51 Tubal ligation status; E78.2 Mixed hyperlipidemia; Z79.01 Long term (current) use of anticoagulants; Z99.81 Dependence on supplemental oxygen; D64.9 Anemia, unspecified; R91.8 Other nonspecific abnormal finding of lung field; I27.20 Pulmonary hypertension, unspecified; E66.01 Morbid (severe) obesity due to excess calories; Z68.36 Body mass index [BMI] 36.0-36.9, adult; E87.5 Hyperkalemia; E87.6 Hypokalemia
CPT/HCPCS: 32555; 36415; 36600; 70450; 71045; 71260; 76770; 80048; 80053; 82140; 82150; 82550; 82553; 82803; 82947; 82962; 83036; 83605; 83735; 83880; 84132; 84160; 84484; 85007; 85025; 85027; 85610; 88112; 88305; 88312; 88341; 88342; 89051; 93005; 93306; 94640; 94760; 99406; G0378; J0360; J1120; J1630; J1644; J1650; J1815; J1940; J1956; J2060; J2405; J2765; J2920; J2930; Q9967